=== PATIENT | female | born 1930 | race Caucasian/White ===

== ENCOUNTER → 2017-03-07 | Outpatient (CLI) | payer MEDICARE ==
[~2017-03-07] MED LIST: ALL100 PO; ALL300 PO; ASPI-1441 PO; ASPI81TA15 PO; CEP500 PO; GABA-549 PO; HYDR-2966 PO; IBU600 PO; LEVO100T95 PO; LEVO150T72 PO; LEVO50TA80 PO; LISI-355 PO; LISI-374 PO; LOR5 PO; LOR5/325 PO; LOVA10TA63 PO; MET500 PO; MOM PO; OXYB5TAB86 PO; POTA99TA6 PO; SOLI10TA8 PO; TRA50 PO; TRAM-420 PO; TRIA1CAP86 PO; VALS320T12 PO; WAR25 PO; ZOL5 PO; ZOLP-350 PO
[2017-03-07 10:40] LABS: INR 1.29
== END ==
LOC: LAB 10:17
DX: I35.1 Nonrheumatic aortic (valve) insufficiency (principal)
CPT/HCPCS: 36415; 82310; 82374; 82435; 82565; 82947; 84132; 84295; 84520; 85027; 85610

== ENCOUNTER → 2017-03-17 | Outpatient (CLI) | payer MEDICARE | LOC: LAB 10:25 | PROVIDERS: ATTEND Physician Assistant | DX: I35.1 Nonrheumatic aortic (valve) insufficiency (principal); E11.69 Type 2 diabetes mellitus with other specified complication; E66.9 Obesity, unspecified | CPT/HCPCS: 36415; 82310; 82374; 82435; 82565; 82947; 84132; 84295; 84520 ==

== ENCOUNTER → 2017-03-31 | Outpatient (CLI) | payer MEDICARE | LOC: LAB 09:38 | PROVIDERS: ATTEND Internal Medicine Cardiovascular Disease | DX: I50.32 Chronic diastolic (congestive) heart failure (principal) | CPT/HCPCS: 36415; 82310; 82374; 82435; 82565; 82947; 83735; 84132; 84295; 84520 ==

== ENCOUNTER → 2017-05-06 | Outpatient (CLI) | payer MEDICARE ==
[2017-05-06 09:55] LABS: INR 1.42
== END ==
LOC: LAB 09:23
PROVIDERS: ATTEND Physician Assistant
DX: I35.1 Nonrheumatic aortic (valve) insufficiency (principal)
CPT/HCPCS: 36415; 82310; 82374; 82435; 82565; 82947; 84132; 84295; 84520; 85027; 85610

== ENCOUNTER → 2017-06-06 | Outpatient (CLI) | payer MEDICARE | LOC: LAB 10:03 | PROVIDERS: ATTEND Internal Medicine Cardiovascular Disease | DX: I50.20 Unspecified systolic (congestive) heart failure (principal) | CPT/HCPCS: 36415; 82310; 82374; 82435; 82565; 82947; 83880; 84132; 84295; 84520 ==

== ENCOUNTER → 2017-06-10 | Outpatient (CLI) | payer MEDICARE | LOC: LAB 11:04 | PROVIDERS: ATTEND Internal Medicine Cardiovascular Disease | DX: I50.23 Acute on chronic systolic (congestive) heart failure (principal) | CPT/HCPCS: 36415; 82310; 82374; 82435; 82565; 82947; 83880; 84132; 84295; 84520 ==

== ENCOUNTER → 2017-06-13 | Outpatient (CLI) | payer MEDICARE | LOC: LAB 12:51 | PROVIDERS: ATTEND Internal Medicine Cardiovascular Disease | DX: I50.23 Acute on chronic systolic (congestive) heart failure (principal) | CPT/HCPCS: 36415; 82310; 82374; 82435; 82565; 82947; 83880; 84132; 84295; 84520 ==

== ENCOUNTER → 2017-06-18 | Outpatient (CLI) | payer MEDICARE | LOC: LAB 12:12 | PROVIDERS: ATTEND Internal Medicine Cardiovascular Disease | DX: I50.32 Chronic diastolic (congestive) heart failure (principal); E03.9 Hypothyroidism, unspecified | CPT/HCPCS: 36415; 84443 ==

== ENCOUNTER 2017-08-19 14:53 | Emergency (ER) | payer MEDICARE ==
[~2017-08-19 14:53] MED LIST changes: -BUME1TAB19 PO; -CAR3.125 PO
--- NOTE | 2017-08-19 15:03 | ER Report ---
History and Physical Time Seen By MD: 15:03 Hx. of Stated Complaint: PT REPORTS NAUSEA AND VOMITING SINCE THIS MORNING HPI/ROS CHIEF COMPLAINT: Not feeling well, back pain HISTORY OF PRESENT ILLNESS: 86-year-old female patient presents to emergency room with complaint of not feeling well and back pain. Patient states that she had a fall 2 days ago. Patient states she's been having back pain since then. She has been able to ambulate since then. She states that she's not had any loss of bowel or bladder control. She also states that she's been feeling herself. States she is felt chilled but denies feeling feverish. She has been taking her medication, however states she is not feeling any better. She states that today she started having nausea, vomiting and diarrhea. She states that was abnormal for her. REVIEW OF SYSTEMS: Respiratory: No cough, no dyspnea. Cardiovascular: No chest pain, no palpitations. Gastrointestinal: As noted above Musculoskeletal: As noted above Allergies: Coded Allergies: No Known Drug Allergies (Verified , 08/19/17) Home Meds Reported Medications Potassium Gluconate (POTASSIUM) 99 Mg Tablet, 99 MG PO 02/12/17 Hydrochlorothiazide (HYDROCHLOROTHIAZIDE) 25 Mg Tablet, 1 TAB PO QDAY, TAB 02/12/17 Lisinopril (LISINOPRIL) 40 Mg Tablet, 20 MG PO QDAY, TAB 10/12/16 Gabapentin (GABAPENTIN) 300 Mg Capsule, 300 MG PO TID, CAPSULE 02/18/16 Tramadol Hcl (TRAMADOL HCL) 50 Mg Tablet, 50-100 MG PO Q4-6H Y for PAIN, TAB 02/18/16 Oxybutynin Chloride (OXYBUTYNIN CHLORIDE) 5 Mg Tablet, 15 MG PO QDAY, TAB 02/18/16 Aspirin (ASPIRIN) 81 Mg Tablet.dr, 81 MG PO 11/28/11 Levothyroxine Sodium (Levothyroxine Sodium) 50 Mcg Tablet, 75 MCG PO QAM, 0 Refills 04/14/09 Allopurinol (Zyloprim) 300 Mg Tab, 300 MG PO QDAY, 0 Refills 04/14/09 Lovastatin (Lovastatin) 10 Mg Tablet, 10 MG PO QHS 04/14/09 Past Medical/Surgical History Patient has a past medical history of hypertension, hyperlipidemia, cholecystitis, arthritis, back pain, diabetes, hypothyroidism. Patient has a surgical history of left total knee replacement, hysterectomy, cystectomy. Patient has a family medical history of diabetes. Reviewed Nurses Notes: Yes Hx Smoking: No Smoking Status: Never Smoker Hx Substance Use Disorder: No Hx Alcohol Use: No Constitutional Vital Sign - Last 24 Hours 08/19/17 08/19/17 08/19/17 08/19/17 14:55 14:58 14:58 15:00 Temp 98.5 Pulse 99 Resp 16 B/P (MAP) 143/61 143/61 (88) 135/60 (85) Pulse Ox 94 O2 Delivery Nasal Cannula O2 Flow Rate 2.0 08/19/17 08/19/17 08/19/17 08/19/17 15:08 15:23 15:38 15:53 Pulse 78 82 78 77 Pulse Ox 91 92 93 91 08/19/17 08/19/17 08/19/17 08/19/17 16:00 16:08 16:13 16:50 Pulse 77 77 B/P (MAP) 139/55 (83) 132/63 (86) Pulse Ox 93 95 08/19/17 08/19/17 08/19/17 08/19/17 16:58 17:00 17:13 17:18 Pulse 81 80 81 B/P (MAP) 146/69 (94) Pulse Ox 91 93 90 08/19/17 08/19/17 08/19/17 08/19/17 17:30 17:33 17:48 18:00 Pulse 80 80 B/P (MAP) 138/66 (90) 143/55 (84) Pulse Ox 93 92 08/19/17 08/19/17 08/19/17 08/19/17 18:03 18:18 18:23 18:30 Pulse 80 81 80 B/P (MAP) 130/65 (86) Pulse Ox 89 08/19/1718 08/19/17 08/19/17 18:38 18:53 19:00 19:05 Pulse 81 85 85 B/P (MAP) 147/68 (94) Pulse Ox 97 95 95 08/19/17 08/19/17 08/19/17 08/19/17 19:10 19:25 19:30 19:40 Pulse ??? 71 63 Resp 14 20 B/P (MAP) 122/65 (84) Pulse Ox 81 94 92 08/19/17 08/19/17 08/19/17 08/19/17 19:55 20:00 20:10 20:25 Pulse 71 71 64 Resp 14 31 21 B/P (MAP) 124/100 (108) Pulse Ox 92 94 95 08/19/17 08/19/17 20:30 20:40 Pulse 65 Resp 37 B/P (MAP) 123/64 (83) Pulse Ox 95 Intake and Output 08/19/17 08/19/17 08/20/17 14:59 22:59 06:59 Intake Total 1000 ml Output Total 70 ml Balance 930 ml Physical Exam General Appearance: The patient is alert, has no immediate need for airway protection and no current signs of toxicity Respiratory: Chest is non tender, lungs are clear to auscultation. Cardiac: regular rate and rhythm, 1+ edema to bilateral lower extremities. Gastrointestinal: Abdomen is soft and non tender, no masses, bowel sounds normal. Musculoskeletal: Neck: Neck is supple and non tender. Extremities have full range of motion and are non tender. Skin: No rashes or lesions. DIFFERENTIAL DIAGNOSIS: After history and physical exam differential diagnosis was considered for nausea and vomiting including but not limited to gastroenteritis, gastritis, appendicitis, and medication side effect. Included in the differential is urinary tract infection, [place]. Medical Decision Making Data Points Result Diagram: 08/19/17 1533 08/19/17 1755 Laboratory Hematology Test 08/19/17 15:20 08/19/17 15:33 08/19/17 17:55 08/19/17 19:23 Urine Color Betty Urine Clarity Slightly-cloudy Urine pH 5.0 pH (4.8-9.5) Urine Specific [place] 1.011 Urine Protein 30 mg/dL (NEGATIVE) Urine Glucose (UA) Negative mg/dL (NEGATIVE) Urine Ketones Negative mg/dL (NEGATIVE) Urine Blood Negative (NEGATIVE) Urine Nitrite Negative (NEGATIVE) Urine Bilirubin Negative (NEGATIVE) Urine Urobilinogen 4.0 mg/dL (0.2-1.9) Urine Leukocyte Esterase Negative (NEGATIVE) Urine RBC 1 /HPF (0-2/HPF) Urine WBC 2 /HPF (0-5/HPF) Urine Squamous Epithelial Cells None /LPF (NONE-FEW) Urine Transitional Epithelial Cells Many /LPF (NONE-FEW) Urine Amorphous Crystals Few /HPF Urine Bacteria Few /HPF (NONE-FEW) Urine Hyaline Casts Many /LPF (NONE-FEW) Urine Mucus Few /HPF (NONE-FEW) Red Blood Count 4.80 M/uL (4.17-5.56) Mean Corpuscular Volume 70.6 fL (80.0-96.0) Mean Corpuscular Hemoglobin 21.2 pg (26.0-33.0) Mean Corpuscular Hemoglobin Concent 30.0 g/dL (32.0-36.0) Red Cell Distribution Width 20.4 % (11.5-14.5) Mean Platelet Volume 9.8 fL (7.2-11.1) Neutrophils (%) (Auto) 80.7 % (39.4-72.5) Lymphocytes (%) (Auto) 9.4 % (17.6-49.6) Monocytes (%) (Auto) 9.8 % (4.1-12.4) Eosinophils (%) (Auto) 0.0 % (0.4-6.7) Basophils (%) (Auto) 0.1 % (0.3-1.4) Nucleated RBC Relative Count (auto) 0.2 /100WBC Neutrophils # (Auto) 5.1 K/uL (2.0-7.4) Lymphocytes # (Auto) 0.6 K/uL (1.3-3.6) Monocytes # (Auto) 0.6 K/uL (0.3-1.0) Eosinophils # (Auto) 0.0 K/uL (0.0-0.5) Basophils # (Auto) 0.0 K/uL (0.0-0.1) Nucleated RBC Absolute Count (auto) 0.01 K/uL Peripheral Blood Smear Yes Y/N Sodium Level 134 mmol/L (137-145) Chloride Level 100 mmol/L (98-107) Carbon Dioxide Level 19 mmol/L (22-31) Blood Urea Nitrogen 51 mg/dl (7-18) Creatinine 3.00 mg/dl (0.52-1.04) Glomerular Filtration Rate Calc 14.8 Random Glucose 97 mg/dl (75-110) Calcium Level 8.3 mg/dl (8.4-10.2) Total Bilirubin 3.4 mg/dl (0.2-1.3) Aspartate Amino Transf (AST/SGOT) 206 U/L (0-35) Alanine Aminotransferase (ALT/SGPT) 97 U/L (0-56) Alkaline Phosphatase 91 U/L (0-126) Total Protein 6.9 g/dl (6.3-8.2) Albumin 3.7 g/dl (3.5-5.0) Amylase Level 61 U/L (0-110) Lipase 23 U/L (23-300) Potassium Level 7.2 mmol/L (3.5-5.0) Magnesium Level 2.3 mg/dl (1.7-2.2) Total Creatine Kinase 614 U/L (30-135) Troponin I 0.135 ng/ml Lactate 3.0 mmol/L (0.7-2.1) Test 08/19/17 19:58 Prothrombin Time 30.1 seconds (12.0-14.4) Prothromb Time International Ratio 2.76 Activated Partial Thromboplast Time 43 seconds (23-35) Chemistry Test 08/19/17 15:20 08/19/17 15:33 08/19/17 17:55 08/19/17 19:23 Urine Color Betty Urine Clarity Slightly-cloudy Urine pH 5.0 pH (4.8-9.5) Urine Specific [place] 1.011 Urine Protein 30 mg/dL (NEGATIVE) Urine Glucose (UA) Negative mg/dL (NEGATIVE) Urine Ketones Negative mg/dL (NEGATIVE) Urine Blood Negative (NEGATIVE) Urine Nitrite Negative (NEGATIVE) Urine Bilirubin Negative (NEGATIVE) Urine Urobilinogen 4.0 mg/dL (0.2-1.9) Urine Leukocyte Esterase Negative (NEGATIVE) Urine RBC 1 /HPF (0-2/HPF) Urine WBC 2 /HPF (0-5/HPF) Urine Squamous Epithelial Cells None /LPF (NONE-FEW) Urine Transitional Epithelial Cells Many /LPF (NONE-FEW) Urine Amorphous Crystals Few /HPF Urine Bacteria Few /HPF (NONE-FEW) Urine Hyaline Casts Many /LPF (NONE-FEW) Urine Mucus Few /HPF (NONE-FEW) White Blood Count 6.3 k/uL (4.5-11.0) Red Blood Count 4.80 M/uL (4.17-5.56) Hemoglobin 10.2 g/dL (12.0-16.0) Hematocrit 33.9 % (34.0-47.0) Mean Corpuscular Volume 70.6 fL (80.0-96.0) Mean Corpuscular Hemoglobin 21.2 pg (26.0-33.0) Mean Corpuscular Hemoglobin Concent 30.0 g/dL (32.0-36.0) Red Cell Distribution Width 20.4 % (11.5-14.5) Platelet Count 159 K/uL (150-450) Mean Platelet Volume 9.8 fL (7.2-11.1) Neutrophils (%) (Auto) 80.7 % (39.4-72.5) Lymphocytes (%) (Auto) 9.4 % (17.6-49.6) Monocytes (%) (Auto) 9.8 % (4.1-12.4) Eosinophils (%) (Auto) 0.0 % (0.4-6.7) Basophils (%) (Auto) 0.1 % (0.3-1.4) Nucleated RBC Relative Count (auto) 0.2 /100WBC Neutrophils # (Auto) 5.1 K/uL (2.0-7.4) Lymphocytes # (Auto) 0.6 K/uL (1.3-3.6) Monocytes # (Auto) 0.6 K/uL (0.3-1.0) Eosinophils # (Auto) 0.0 K/uL (0.0-0.5) Basophils # (Auto) 0.0 K/uL (0.0-0.1) Nucleated RBC Absolute Count (auto) 0.01 K/uL Peripheral Blood Smear Yes Y/N Glomerular Filtration Rate Calc 14.8 Calcium Level 8.3 mg/dl (8.4-10.2) Total Bilirubin 3.4 mg/dl (0.2-1.3) Aspartate Amino Transf (AST/SGOT) 206 U/L (0-35) Alanine Aminotransferase (ALT/SGPT) 97 U/L (0-56) Alkaline Phosphatase 91 U/L (0-126) Total Protein 6.9 g/dl (6.3-8.2) Albumin 3.7 g/dl (3.5-5.0) Amylase Level 61 U/L (0-110) Lipase 23 U/L (23-300) Magnesium Level 2.3 mg/dl (1.7-2.2) Total Creatine Kinase 614 U/L (30-135) Troponin I 0.135 ng/ml Lactate 3.0 mmol/L (0.7-2.1) Test 08/19/17 19:58 Prothrombin Time 30.1 seconds (12.0-14.4) Prothromb Time International Ratio 2.76 Activated Partial Thromboplast Time 43 seconds (23-35) Coagulation Test 08/19/17 19:58 Prothrombin Time 30.1 seconds Prothromb Time International Ratio 2.76 Activated Partial Thromboplast Time 43 seconds Urinalysis Test 08/19/17 15:20 Urine Color Betty Urine Clarity Slightly-cloudy Urine pH 5.0 pH (4.8-9.5) Urine Specific [place] 1.011 Urine Protein 30 mg/dL (NEGATIVE) Urine Glucose (UA) Negative mg/dL (NEGATIVE) Urine Ketones Negative mg/dL (NEGATIVE) Urine Blood Negative (NEGATIVE) Urine Nitrite Negative (NEGATIVE) Urine Bilirubin Negative (NEGATIVE) Urine Urobilinogen 4.0 mg/dL (0.2-1.9) Urine Leukocyte Esterase Negative (NEGATIVE) Urine RBC 1 /HPF (0-2/HPF) Urine WBC 2 /HPF (0-5/HPF) Urine Squamous Epithelial Cells None /LPF (NONE-FEW) Urine Transitional Epithelial Cells Many /LPF (NONE-FEW) Urine Amorphous Crystals Few /HPF Urine Bacteria Few /HPF (NONE-FEW) Urine Hyaline Casts Many /LPF (NONE-FEW) Urine Mucus Few /HPF (NONE-FEW) EKG/Imaging EKG Interpretation 12 lead EKG at 1527: Rhythm: Idioventricular rhythm with a rate of 98 bpm [place]: Right axis deviation QRS: Right bundle branch block ST segments: Diffuse ST abnormality 12 lead EKG at 1755: Rhythm: Idioventricular rhythm at a ventricular rate of 80 bpm [place]: Right axis deviation QRS: Right bundle branch block ST segments: Diffuse ST abnormality 12 lead EKG: Rhythm: Atrial fibrillation with ventricular rate of 65 bpm [place]: normal QRS: Right bundle branch block ST segments: normal Imaging L-SPINE W/O CONTRAST HISTORY: fall with pain One of the following dose optimization techniques was utilized in the performance of this exam: Automated exposure control; adjustment of the mA and/ or kV according to the patient's size; or use of an iterative reconstruction technique. Specific details can be referenced in the facility's radiology CT exam operational policy. TECHNIQUE: CT scan of the lumbar spine from the lower thoracic through the sacral spine. Reconstructed sagittal and coronal scans were obtained as well. Reconstructed sagittal and coronal scans were obtained. Comparison made to lumbar spine film series from 11/21/2016. FINDINGS: The lumbar vertebral bodies are well maintained with respect to height and alignment. No acute fractures noted within the lumbar spine. The patient is status post pedicle fusion with no fracture or loosening of the orthopedic hardware at the L3-4 disc space. There is disc space narrowing and vacuum phenomenon noted at the L2-3 and the L5-S1 levels. Vacuum phenomenon without disc space narrowing noted at the L4-5 level. The facet joints are well- maintained with no facet fracture or disruption. Laminectomy changes noted in the L2 through the L4-5 level. There is a stable sclerotic lesion involving the involving the posterior inferior aspect of the L1 vertebral body unchanged when compared to a CT scan of the thoracic spine from 2011. There is a 75% anterior compression change of the T12 vertebral body and approximately 20% compression change of the T11 vertebral body which appear to be fairly comparable to a plain film from 11/21/2016. Relatively advanced facet arthropathy changes are noted in the lower thoracic spine at those levels. Sacrum is unremarkable. Bone harvesting changes from the right iliac bone. Atherosclerotic disease seen within the nonaneurysmal aorta. No pathologic lymphadenopathy. Large left renal cyst measuring over 6 cm. IMPRESSION: FINDINGS: 1. No acute bony pathology. Postoperative changes in the lumbar spine as described. Apparent stable appearing compression changes involving the lower thoracic spine when compared to plain film from 11/21/2016 Report Dictated By: Stefano Schultz MD at 08/19/2017 5:49 PM Report E-Signed By: Stefano Schultz MD at 08/19/2017 6:41 PM ABDOMEN/PELVIS W/O CONTRAST HISTORY: n/v suprapubic abdominal pain TECHNIQUE: Axial images acquired through the abdomen/pelvis. Coronal and sagittal reformatting also performed. No IV contrast administered. Dose Lowering Technique One of the following dose optimization techniques was utilized in the performance of this exam: Automated exposure control; adjustment of the mA and/ or kV according to the patient's size; or use of an iterative reconstruction technique. Specific details can be referenced in the facility's radiology CT exam operational policy. COMPARISON: None. FINDINGS: Visualized lung bases: There Is a moderate posterior layering right pleural effusion and a small posterior layering left pleural effusion. There is focal airspace consolidation in the inferior right middle lobe and dense airspace consolidation in the dependent portion of the right lower lobe consistent with infiltrate and/or atelectasis. Very small amount of airspace consolidation seen in the dependent left lower lobe There are extensive coronary artery calcifications. Hepatobiliary: Postsurgical changes from a cholecystectomy. There is a lobular contour to the liver Spleen: Negative. Adrenals: Negative. Pancreas: Severely atrophic Kidneys ureters and bladder: 7.2 cm left renal cyst no demonstration of urolithiasis hydronephrosis or hydroureter. Bladder is mostly decompressed therefore not ideally evaluated Genitalia: Hysterectomy GI: Small hiatal hernia. Scattered diverticula throughout the colon most prominent in the left side of the colon although no CT evidence of acute diverticulitis Vessels/spaces/nodes: Moderate vascular calcifications seen throughout the abdomen and pelvis. There is a small amount of abdominal and moderate amount of pelvic ascites Bones/soft tissues: There is diffuse anasarca. There are postoperative changes from posterior lumbar interbody fusion at L3 and L4. There are moderate spondylotic changes the visualized thoracolumbar spine. There is a moderate compression fracture of T12 several mild thoracic compression fractures. There is dense sclerosis seen along the posterior inferior aspect of the L1 vertebral body as described changes are also seen along the posterior medial right iliac bone Additional findings: None pertinent. IMPRESSION: There is a moderate posterior layering right pleural effusion with adjacent airspace consolidation the right middle lobe and right lower lobe consistent with infiltrate and/or atelectasis Small left pleural effusion with a very small amount of adjacent airspace consolidation Postsurgical changes from a cholecystectomy and hysterectomy Lobular contour to the liver suggesting possibility of cirrhosis although clinical correlation needed Diffuse anasarca and mild amount of abdominal and moderate amount of pelvic ascites Severely atrophic pancreas Diverticulosis throughout the colon most prominent on the left although no CT evidence of acute diverticulitis Postoperative changes lumbar spine with spondylotic changes and multiple compression fractures as described Dense sclerosis along posterior inferior L1 vertebral body of uncertain etiology. Is also sclerosis along the posterior inferior right iliac bone. If aggressive bone pathology is of clinical concern bone scan may be helpful Report Dictated By: Johanne Minor MD at 08/19/2017 5:16 PM Report E-Signed By: Johanne Minor MD at 08/19/2017 5:27 PM Exam type: CHEST PA AND LAT History: N/V Comparison: February 12, 2017. Findings: Cardiac silhouette is enlarged slightly increased when compared the prior study. There has been development of a moderate right pleural effusion and airspace consolidation in the right lung base consistent with infiltrate and/or atelectasis. There is no evidence of overt pulmonary edema. IMPRESSION: 1. Moderate right pleural effusion and airspace consolidation in the right lung base consistent with infiltrate and/or atelectasis Cardiomegaly slightly enlarged when compared to the prior study Report Dictated By: Johanne Minor MD at 08/19/2017 5:15 PM Report E-Signed By: Johanne Minor MD at 08/19/2017 5:16 PM ED Course/Re-evaluation ED Course Patient was admitted to an exam room, history of physical were obtained. Differential diagnoses were considered. On examination lungs are clear, heart is regular, patient does have some bruising that is noted diffusely patient did have some tenderness in the suprapubic region. Patient had no bruising to the lumbar spine, no tenderness to palpation. A CBC, CMP, urinalysis, EKG, troponin , chest x-ray, CT scan of abdomen and pelvis as well as CT scan of the lumbar spine. Urinalysis was unremarkable, CBC showed no elevated white count, CMP did show a high potassium of 7.4. At that time patient did receive a gram of calcium gluconate. EKG showed a wide complex, possibly idoventricular rate with right axis deviation and right bundle branch block. Troponin came back indeterminate at 0.1. Chest x-ray showed right lower lobe pleural effusion with likely consolidation and/or atelectasis. CT scan of abdomen and pelvis showed no acute findings, she did have ascites of the abdomen as well as in the pelvis. Lumbar spine showed no acute fractures. A repeat EKG and potassium and troponin were done. Potassium did come down from 7.4 to 7.2. The troponin however did increase to a critical level. At that time I discussed the findings with the patient and her family. I did discuss the case with Dr. Cheung, hospitalist at [facility], who after reviewing the case with him felt the patient likely need to be admitted to ICU and wanted the patient to go through the ER there at [facility]. Still that additional testing be done, including a PT PTT, magnesium and a lactate. The lactate was 3. I then discussed the case with Dr. Mijares, ER physician, who did agree to accept the patient for transfer. He did request that a CPK be added. CPK was 649. I discussed this with the patient and her family and they verbalized understanding and agreement with plan. Patient did receive a dose of 324 mg of aspirin. Patient also received an amp of dextrose, amp of bicarbonate and 10 units of insulin. A repeat x-ray was done which did show improvement in her EKG. At that time she did have a atrial fibrillation with a right bundle branch block. Decision to Disposition Date: Aug 19, 2017 Decision to Disposition Time: 20:27 Depart Departure Latest Vital Signs Vital Signs Date Time Temp Pulse Resp B/P (MAP) Pulse Ox O2 Delivery O2 Flow Rate FiO2 08/19/17 20:40 65 37 95 08/19/17 20:30 123/64 (83) 08/19/17 14:58 98.5 Nasal Cannula 08/19/17 14:55 2.0 Impression: Primary Impression: Hyperkalemia Additional Impressions: Elevated troponin Kidney failure Condition: Condition Unchanged Disposition: XFER TO [facility] Referrals: FRANCI PORTER MD (PCP) Problem Qualifiers Additional Impressions: Kidney failure Renal failure chronicity: acute Acute renal failure type: unspecified Qualified Codes: N17.9 - Acute kidney failure, unspecified ELLIOTT MEZA TURN SEWER Aug 19, 2017 15:03
[2017-08-19] MEDS ORDERED: EMS NS 0.9%(*) 1000 ML BAG 1,000 ML IV ONE (15:05)
[2017-08-19] MEDS ORDERED: NS(*) 0.9% 1000 ML BAG 1,000 ML IV ONE (15:18)
[2017-08-19] MEDS ORDERED: IOPAMIDOL 76% 75 ML INFUS BTL 0 ML ONE (15:49)
--- NOTE | 2017-08-19 15:54 | EKG ---
FACILITY: [facility] PATIENT NAME: BARBER IBRAHIM : [id number] MR: [id number] V: [id number] EXAM DATE: ORDERING PHYSICIAN: ELLIOTT MEZA TECHNOLOGIST: TONIE Test Reason : Blood Pressure : / mmHG Vent. Rate : 098 BPM Atrial Rate : 098 BPM P-R Int : 000 ms QRS Dur : 050 ms QT Int : 248 ms P-R-T Axes : 000 120 222 degrees QTc Int : 316 ms Very wide complex "near-tachycardic" rhythm Suspect accelerated idioventricular Diffuse ST-T findings concerning for ischemia Abnormal ECG Confirmed by MARLEE JOHNSON ([id number]) on 08/19/2017 4:09:12 PM Referred By: DERRICK Confirmed By:MARLEE JOHNSON
[2017-08-19 15:55] LABS: PLATELET COUNT, AUTOMATED 159 K/uL (150-450)
[2017-08-19] MEDS ORDERED: CALCIUM GLUC 10% 100 MG/ML VL IVP ONE (16:15)
--- NOTE | 2017-08-19 17:20 | RADIOLOGY IMAGING REPORT ---
FACILITY: [facility] [place] PATIENT NAME: Brielle Campbell : 1930 MR: [id number] V: [id number] EXAM DATE: ORDERING PHYSICIAN: ELLIOTT MEZA TECHNOLOGIST: Location: [facility] [place] Patient: Brielle Campbell : 1930 Visit/Account:[id number] Date of Sevice: 08/19/2017 Exam type: CHEST PA AND LAT History: N/V Comparison: February 12, 2017. Findings: Cardiac silhouette is enlarged slightly increased when compared the prior study. There has been deve lopment of a moderate right pleural effusion and airspace consolidation in the right lung base consis tent with infiltrate and/or atelectasis. There is no evidence of overt pulmonary edema. IMPRESSION: 1. Moderate right pleural effusion and airspace consolidation in the right lung base consistent with infiltrate and/or atelectasis Cardiomegaly slightly enlarged when compared to the prior study Report Dictated By: Johanne Minor MD at 08/19/2017 5:15 PM Report E-Signed By: Johanne Minor MD at 08/19/2017 5:16 PM WSN:[email or web address]
--- NOTE | 2017-08-19 17:32 | RADIOLOGY IMAGING REPORT ---
FACILITY: [facility] PATIENT NAME: Brielle Campbell : 1930 MR: [id number] V: [id number] EXAM DATE: ORDERING PHYSICIAN: ELLIOTT MEZA TECHNOLOGIST: Location: [facility] Patient: Brielle Campbell : 1930 Visit/Account:[id number] Date of Sevice: 08/19/2017 ABDOMEN/PELVIS W/O CONTRAST HISTORY: n/v suprapubic abdominal pain TECHNIQUE: Axial images acquired through the abdomen/pelvis. Coronal and sagittal reformatting also performed. No IV contrast administered. Dose Lowering Technique One of the following dose optimization techniques was utilized in the performance of this exam: Autom ated exposure control; adjustment of the mA and/or kV according to the patient's size; or use of an i terative reconstruction technique. Specific details can be referenced in the facility's radiology C T exam operational policy. COMPARISON: None. FINDINGS: Visualized lung bases: There Is a moderate posterior layering right pleural effusion and a small post erior layering left pleural effusion. There is focal airspace consolidation in the inferior right mi ddle lobe and dense airspace consolidation in the dependent portion of the right lower lobe consisten t with infiltrate and/or atelectasis. Very small amount of airspace consolidation seen in the depend ent left lower lobe There are extensive coronary artery calcifications. Hepatobiliary: Postsurgical changes from a cholecystectomy. There is a lobular contour to the liver Spleen: Negative. Adrenals: Negative. Pancreas: Severely atrophic Kidneys ureters and bladder: 7.2 cm left renal cyst no demonstration of urolithiasis hydronephrosis o r hydroureter. Bladder is mostly decompressed therefore not ideally evaluated Genitalia: Hysterectomy GI: Small hiatal hernia. Scattered diverticula throughout the colon most prominent in the left side of the colon although no CT evidence of acute diverticulitis Vessels/spaces/nodes: Moderate vascular calcifications seen throughout the abdomen and pelvis. Ther e is a small amount of abdominal and moderate amount of pelvic ascites Bones/soft tissues: There is diffuse anasarca. There are postoperative changes from posterior lumbar interbody fusion at L3 and L4. There are moder ate spondylotic changes the visualized thoracolumbar spine. There is a moderate compression fracture of T12 several mild thoracic compression fractures. There is dense sclerosis seen along the posteri or inferior aspect of the L1 vertebral body as described changes are also seen along the posterior me dial right iliac bone Additional findings: None pertinent. IMPRESSION: There is a moderate posterior layering right pleural effusion with adjacent airspace consolidation th e right middle lobe and right lower lobe consistent with infiltrate and/or atelectasis Small left pleural effusion with a very small amount of adjacent airspace consolidation Postsurgical changes from a cholecystectomy and hysterectomy Lobular contour to the liver suggesting possibility of cirrhosis although clinical correlation needed Diffuse anasarca and mild amount of abdominal and moderate amount of pelvic ascites Severely atrophic pancreas Diverticulosis throughout the colon most prominent on the left although no CT evidence of acute diver ticulitis Postoperative changes lumbar spine with spondylotic changes and multiple compression fractures as johny cribed Dense sclerosis along posterior inferior L1 vertebral body of uncertain etiology. Is also sclerosis along the posterior inferior right iliac bone. If aggressive bone pathology is of clinical concern b one scan may be helpful Report Dictated By: Johanne Minor MD at 08/19/2017 5:16 PM Report E-Signed By: Johanne Minor MD at 08/19/2017 5:27 PM WSN:[email or web address]
--- NOTE | 2017-08-19 18:07 | EKG ---
FACILITY: [facility] [place] PATIENT NAME: BARBER IBRAHIM : [id number] MR: [id number] V: [id number] EXAM DATE: ORDERING PHYSICIAN: ELLIOTT MEZA TECHNOLOGIST: TONIE Test Reason : HIGH POTASSIUM Blood Pressure : / mmHG Vent. Rate : 080 BPM Atrial Rate : 080 BPM P-R Int : 418 ms QRS Dur : 104 ms QT Int : 512 ms P-R-T Axes : 019 187 -30 degrees QTc Int : 590 ms Ventricular paced rhythm vs Junctional rhythm with RBBB vs hyperkalemia When compared with ECG of 19-AUG-2017 15:27, QRS has shortened, but still very wide Confirmed by DAVID LIU ([id number]) on 08/20/2017 1:04:52 PM Referred By: DERRICK Confirmed By:DAVID LIU
[2017-08-19] MEDS ORDERED: INSU HUM REG 100 U/ML(ER ONLY) 10 ML VIAL IVP ONE (18:30)
[2017-08-19] MEDS ORDERED: SODIUM BICAR IV ONE (18:30)
[2017-08-19] MEDS ORDERED: DEXTROSE 50% 50 ML SYR IVP ONE (18:30)
[2017-08-19] MEDS ORDERED: D5W IV ONE (18:30)
--- NOTE | 2017-08-19 18:45 | RADIOLOGY IMAGING REPORT ---
FACILITY: [facility] PATIENT NAME: Brielle Campbell : 1930 MR: [id number] V: [id number] EXAM DATE: ORDERING PHYSICIAN: ELLIOTT MEZA TECHNOLOGIST: Location: [facility] [place] Patient: Brielle Campbell : 1930 Visit/Account:[id number] Date of Sevice: 08/19/2017 L-SPINE W/O CONTRAST HISTORY: fall with pain One of the following dose optimization techniques was utilized in the performance of this exam: Autom ated exposure control; adjustment of the mA and/or kV according to the patient's size; or use of an i terative reconstruction technique. Specific details can be referenced in the facility's radiology C T exam operational policy. TECHNIQUE: CT scan of the lumbar spine from the lower thoracic through the sacral spine. Reconstructe d sagittal and coronal scans were obtained as well. Reconstructed sagittal and coronal scans were obt ained. Comparison made to lumbar spine film series from 11/21/2016. FINDINGS: The lumbar vertebral bodies are well maintained with respect to height and alignment. No acute fractu res noted within the lumbar spine. The patient is status post pedicle fusion with no fracture or loos ening of the orthopedic hardware at the L3-4 disc space. There is disc space narrowing and vacuum phe nomenon noted at the L2-3 and the L5-S1 levels. Vacuum phenomenon without disc space narrowing noted at the L4-5 level. The facet joints are well-maintained with no facet fracture or disruption. Laminec teresa changes noted in the L2 through the L4-5 level. There is a stable sclerotic lesion involving the involving the posterior inferior aspect of the L1 vertebral body unchanged when compared to a CT sca n of the thoracic spine from 2012. There is a 75% anterior compression change of the T12 vertebral body and approximately 20% compressio n change of the T11 vertebral body which appear to be fairly comparable to a plain film from 7. Relatively advanced facet arthropathy changes are noted in the lower thoracic spine at those levels. Sacrum is unremarkable. Bone harvesting changes from the right iliac bone. Atherosclerotic disease seen within the nonaneurysmal aorta. No pathologic lymphadenopathy. Large lef t renal cyst measuring over 6 cm. IMPRESSION: FINDINGS: 1. No acute bony pathology. Postoperative changes in the lumbar spine as described. Apparent stable a ppearing compression changes involving the lower thoracic spine when compared to plain film from 11/21 Report Dictated By: Stefano Schultz MD at 08/19/2017 5:49 PM Report E-Signed By: Stefano Schultz MD at 08/19/2017 6:41 PM WSN:[id number]
[2017-08-19] MEDS ORDERED: ASPIRIN 81 MG CHEW PO ONE (18:55)
[2017-08-19] MEDS ORDERED: SODIUM BICARB 8.4% 50 MEQ/50ML IV ONE (18:55)
[2017-08-19 20:12] LABS: INR 2.76
[2017-08-19 20:30] VITALS: BP 123/64
--- NOTE | 2017-08-19 21:54 | EKG ---
FACILITY: [facility] [place] PATIENT NAME: BARBER IBRAHIM : [id number] MR: [id number] V: [id number] EXAM DATE: ORDERING PHYSICIAN: ELLIOTT MEZA TECHNOLOGIST: LINDA Test Reason : HIGH POTASSIUM Blood Pressure : / mmHG Vent. Rate : 065 BPM Atrial Rate : 037 BPM P-R Int : 000 ms QRS Dur : 162 ms QT Int : 538 ms P-R-T Axes : 000 122 -03 degrees QTc Int : 559 ms Atrial fibrillation Right bundle branch block Abnormal ECG Now in atrial fibrilation Confirmed by DAVID LIU ([id number]) on 08/20/2017 1:07:34 PM Referred By: RIDDHI Confirmed By:DAVID LIU
== END 2017-08-19 21:00 | disposition short-term general hospital (02) ==
LOC: ER 15:02
DX: N17.9 Acute kidney failure, unspecified (principal); R79.89 Other specified abnormal findings of blood chemistry; E87.5 Hyperkalemia
CPT/HCPCS: 36415; 36416; 71046; 72131; 74176; 81001; 82150; 82550; 82948; 83605; 83690; 83735; 84484; 85025; 85610; 85730; 93005; 96361; 96374; 96375; 99285; A4353; A9270; J0610; 82040; 82247; 82310; 82374; 82435; 82565; 82947; 84075; 84132; 84155; 84295; 84450; 84460; 84520; J1815; Q9967

== ENCOUNTER → 2017-08-19 | Outpatient (CLI) | payer MEDICARE ==
[~2017-08-19] MED LIST changes: +BUME1TAB19 PO; +CAR3.125 PO
== END ==
LOC: AMB 20:44
PROVIDERS: ATTEND Nurse Practitioner
DX: R79.89 Other specified abnormal findings of blood chemistry (principal)
CPT/HCPCS: A0425; A0426

== ENCOUNTER → 2017-08-19 | Outpatient (CLI) | payer MEDICARE | LOC: AMB 14:28 | PROVIDERS: ATTEND Nurse Practitioner | DX: R11.2 Nausea with vomiting, unspecified (principal); R10.33 Periumbilical pain; I48.91 Unspecified atrial fibrillation; I49.3 Ventricular premature depolarization; R09.02 Hypoxemia | CPT/HCPCS: A0425; A0427 ==

== ENCOUNTER 2017-08-25 11:41 | Inpatient (IN) | payer MEDICARE ==
[~2017-08-25] VITALS: Ht 154.9 cm; Wt 79.8 kg
[2017-08-25 15:20] VITALS: BP 138/55
[2017-08-25] MEDS ORDERED: traMADol 50 MG TAB PO ONE (15:30)
--- NOTE | 2017-08-25 17:34 | History & Physical ---
History of Present Illness Chief Complaint Weakness History of Present Illness This [facility] inpatient treatment in [place]. She was admitted for acute heart failure, renal failure , and an elevated troponin. She apparently was not a candidate for aggressive cardiac interventions, and was managed medically. She did require short term dialysis, but this has now been stopped. History Problems: (1) Essential hypertension (2) History of cholecystectomy (3) History of hysterectomy (4) Gout (5) History of total knee replacement (6) DM2 (diabetes mellitus, type 2) (7) Hypothyroid Home Meds Reported Medications Potassium Gluconate (POTASSIUM) 99 Mg Tablet, 99 MG PO 02/12/17 Hydrochlorothiazide (HYDROCHLOROTHIAZIDE) 25 Mg Tablet, 1 TAB PO QDAY, TAB 02/12/17 Lisinopril (LISINOPRIL) 40 Mg Tablet, 20 MG PO QDAY, TAB 10/12/16 Gabapentin (GABAPENTIN) 300 Mg Capsule, 300 MG PO TID, CAPSULE 02/18/16 Tramadol Hcl (TRAMADOL HCL) 50 Mg Tablet, 50-100 MG PO Q4-6H Y for PAIN, TAB 02/18/16 Oxybutynin Chloride (OXYBUTYNIN CHLORIDE) 5 Mg Tablet, 15 MG PO QDAY, TAB 02/18/16 Aspirin (ASPIRIN) 81 Mg Tablet.dr, 81 MG PO 11/28/11 Levothyroxine Sodium (Levothyroxine Sodium) 50 Mcg Tablet, 75 MCG PO QAM, 0 Refills 04/14/09 Allopurinol (Zyloprim) 300 Mg Tab, 300 MG PO QDAY, 0 Refills 04/14/09 Lovastatin (Lovastatin) 10 Mg Tablet, 10 MG PO QHS 04/14/09 Allergies: Coded Allergies: No Known Drug Allergies (Verified , 08/19/17) Hx Smoking: No Smoking Status: Never Smoker Hx Alcohol Use: No Review of Systems All Systems Reviewed/Normal: Yes Exam Vital Signs Vital Signs Date Time Temp Pulse Resp B/P (MAP) Pulse Ox O2 Delivery O2 Flow Rate FiO2 08/25/17 15:20 97.3 20 138/55 (82) 90 Nasal Cannula 1.5 Neuro: No Gross deficits Eyes: PERRLA Cardiovascular: Regular Rate and Rhythm Respiratory: Clear to Auscultation GI: Abd Soft and Non-Tender Extremities: No Edema Integumentary: No Cyanosis Assessment and Plan Problems: (1) Chronic diastolic (congestive) heart failure Assessment & Plan: She was treated for heart failure during her prior admission. She is on chronic treatment with lisinopril. Daily weights are ordered. (2) Acute renal failure Assessment & Plan: She did require dialysis during her prior admission. This has since been discontinued. A chemistry panel is ordered to be available for rounds later this week. (3) DM2 (diabetes mellitus, type 2) Assessment & Plan: She was on insulin when she was on high dose steroids. We ordered fingersticks for the first several days. (4) Essential hypertension Assessment & Plan: She is on chronic treatment with hydrochlorothiazide. (5) Hypothyroid Assessment & Plan: She is on chronic treatment with Synthroid. (6) Gout Assessment & Plan: She is on chronic treatment with allopurinol. Copies to: FRANCI PORTER MD Venous Thromboembolism Antithrombotics Is Pt On Any Antithrombotics?: No FRANCI PETERS DO Aug 25, 2017 17:34
[2017-08-25 20:55] VITALS: BP 152/79
[2017-08-25] MEDS: GABAPENTIN 100 MG CAP PO SCH (21:17)
[2017-08-25] MEDS: CARVEDILOL 3.125 MG TAB PO SCH (21:17)
[2017-08-25] MEDS: LOVASTATIN 20 MG TAB PO SCH (21:17)
[2017-08-26] MEDS: LEVOTHYROXINE SOD 0.088 MG TAB PO SCH (05:53)
[2017-08-26 08:00] VITALS: BP 158/54
[2017-08-26] MEDS: ASPIRIN 81 MG ENTERIC COATED PO SCH (09:07)
[2017-08-26] MEDS: ALLOPURINOL 300 MG TAB PO SCH (09:08)
[2017-08-26] MEDS: predniSONE 20 MG TAB PO SCH (09:08)
[2017-08-26] MEDS: GABAPENTIN 100 MG CAP PO SCH ×3 (09:08→21:11)
[2017-08-26] MEDS: CARVEDILOL 3.125 MG TAB PO SCH ×2 (09:08→21:11)
[2017-08-26] MEDS: BUMETANIDE 2 MG TAB PO SCH (09:08)
--- NOTE | 2017-08-26 10:00 | Medical Nutrition Therapy ---
Nutrition Anthropometrics Height (Inches): 61.00 Height (Calculated Centimeters: 154.169273 Weight (Pounds): 170 Weight (Calculated Kilograms): 77.111 Cullen Nutrition Score: Probably Inadequate Cullen Nutrition Risk Score: 18 Dietary Referral Nutrition Risk Factors: Nutrition Risk Comment: Physical Findings Physical Appearance: Obese BMI 30-39 Skin Appearance Skin Appearance: Edema Edema Location Modifier: Edema Location: Type of Edema: Degree of Edema: Gastrointestinal Symptoms GI Symtoms: Tube Present: Bowel Sounds: Recent Bowel Pattern: Stool Characteristics: Nutritional Diagnosis Nutritional Risk Acuity 1: Acute/ES Renal Nutritional Risk Acuity 2: CHF w/Complication Past Medical History: CHF, renal failure, ARF, DM II, Gout, hypothyroid, hypokalemia, HTN Nutritional Acuity: 1-High Nutrition Diagnosis: Decreased Nutrient Needs Nutrition Etiology: Physiological Causes Nutrition Problem/Etiology/Sym: Decrease sodium and fluid needs related to ARF evidence by diet order 2g of sodium and fluid restriction 2000ml per day. Energy Requirement: 1318 (Killian Homer Adj BMI>27.5 ) Protein Requirement: 62 (.8g/kg) Fluid Requirement: 1925 (25ml/kg >75 years ) Diet Type: 2 Gram Sodium (NA), CHF Diet, Diabetic, Fluid Restricted (2000ml) Nutrition Intervention: Cont diet as ordered, Encourage intake Drug: Diuretics Nutrition Monitoring & Eval Nutrition Goals: Eat 50-100% Meal, Fluid Restrictions (</=2000ml) RD Patient Assessment Time: [address] Assessment Type: RD Assessment Patient Nutrition Acuity: 1-High Follow Up Date: Sep 02, 2017 Nutritional Comment: 08/26 Pt was admitted for acute renal failure, renal failure and elevated troponin. Pt was transferred from [place]. Pt use to be on short term dialysis, that has stopped. Pt has elevated whole blood glucose (144). Pt is DM II and currently there are no medications in record to help manage her diabetes. Pt is on CHF/ADA diet with fluid restriction of 2000ml and no more than 2g Na per day. Pt has consumed 100% of her meals since she has been transferred. Will continue to monitor pt progress, labs and encourage intake. -DAQUAN IKNG Aug 26, 2017 08:31
[2017-08-26] MEDS ORDERED: CAR3.125 PO (11:43)
[2017-08-26] MEDS ORDERED: BUME1TAB19 PO (11:43)
[2017-08-26 15:10] VITALS: BP 127/61
--- NOTE | 2017-08-26 15:45 | PT ECF NOTE ---
Type of Note: Initial Note Primary Medical Diagnosis: Acute Heart Failure, Acute Renal Failure, Elevated Troponin Physical Therapy Evaluation Date: 08/26/17 SUBJECTIVE: Prior Hospitalization: [facility] 08/19/17-08/25/17 Prior Level of Function: Tiffanie with 4WW or SPC as needed Prior Living Status: Single level house, Alone, Assist by family (pt reports that her daughter comes over every morning to assist with light housework, etc.) Community Services: Support adequate Home Accessibility: 2x3 stairs with rails Equipment Owned: Rollator, Cane Medical Complications/Past Medical History: See EMR for details Psychosocial Support: Supportive daughter Pain Scale (0-10): 3/10 R) knee OBJECTIVE: Strength: Right Lower Extremity: DF: 4/5 Knee flexion: <3/5 (lacking full AROM d/t pain) Knee extension: <3/5 (lacking full AROM d/t pain) Hip flexion: 3+/5 Left Lower Extremity: DF: 4/5 Knee flexion: 4/5 Knee extension: 3+/5 Hip flexion: 3+/5 ROM: Lacking full AROM knee extension/flexion on the R) side Sensation: WNL Other Neuro findings: None noted Bed Mobility: NT, pt up in chair Transfers: CGA with RW Gait: CGA with RW, 2x30' Stairs: NT Gait speed (0.6m/second cannot function independently): 0.35 m/sec ASSESSMENT: PT ECF eval complete. Pt on 4L at rest with SpO2 99%. She requires CGA for transfers and ambulation, 2x30' with use of RW and close chair follow for safety. Pt fatigues very quickly and becomes very dyspneic with activity, requiring standing rest breaks with UE prop on walker. SpO2 WNL on 4L throughout session. Pt will benefit from skilled PT services in order to increase independence with functional mobility prior to d/c home. Problem List/Current Limitations: Pain Decreased activity chase Decreased strength Decreased balance Generalized weakness Shortness of breath Short Term Goals: 1: Pt to complete bed mobility with Tiffanie 2: Pt to complete transfers with Tiffanie and least restrictive AD 3: Pt to ambulate 150' with SBA and least restrictive AD 4: Pt to asc/desc 4 stairs with railing and SBA 5; Pt to improve gait speed to faster than 0.35 m/sec to indicate an improvement in function. Eyeglass Lens Cutter Goals: Pt to discharge home with decreased need of assistance from others Patient Goals: "Breathe better" Rehabilitation Prognosis: Good Barriers for Discharge: Multiple comorbidities, high level of independence necessary to d/c home PLAN: The patient will benefit from skilled physical therapy services 5 times per week for 2 weeks including: Therapeutic Exercise Therapeutic Activities Transfer Training Gait Training Stair Training Manual Therapy Safety Training Neuromuscular Re-educ. Pt/Caregiver Training Bed Mobility Thank you for this referral. If you have any questions, concerns, or comments about this report or plan, please contact me at . Anahi Vargas, PT, DPT MTDD
--- NOTE | 2017-08-26 16:05 | OT ECF NOTE ---
Type of Note: Initial Note Primary Medical Diagnosis: Generalized weakness s/p acute hospital stay for hyperkalemia, increased troponin, acute kidney failure Occupational Therapy Evaluation Date: 08/26/17 SUBJECTIVE: Prior Hospitalization: [facility] 08/19/17 thru 08/25/17 Prior Level of Function: (I) with ADLs. Assist from daughter for IADLs ( cleaning/cooking/community mobility) Prior Living Status: Single level house Alone Assist by family Community Services: No known needs Home Accessibility: All needs on one level Walk-in shower Equipment Owned: Front wheeled walker Toilet riser Tub/shower chair Medical Complications/Past Medical History: Please refer to EMR Psychosocial Support: Supportive daughter Pain Scale (0-10): Pt reporting no pain at time of evaluation OBJECTIVE: Strength: MMT: Right Left Shoulder Flexion WFL WFL Elbow Flexion WFL WFL Wrist Extension WFL WFL Metal Sorter WFL WFL (5= normal, 4= good, 3= fair, 2= poor, 1= trace) ROM: Both upper extremities, WFL Functional Transfer: Assistive Device: Front wheeled walker Transfer Ability: CGA ADL: Upper body dressing: Assistive device: Nine Upper body dressing ability: SBA Lower body dressing: Assistive device: Pt dyspneic with LB dressing, increased assist provided Lower body dressing ability: Minimum assistance Toileting: Assistive device: Toileting ability: N/T Grooming/hygiene: Assistive device: Grooming ability: N/T Bathing: Assistive device: Bathing ability: N/T Standardized Assessment: Leola Index of Activities of Daily Livin/20 at initial evaluation (). ASSESSMENT: Brielle presents with decreased activity tolerance and increased assist for ADLs/IADLs compared to [facility]. At [facility], pt did not have supplemental O2 and was (I) with ADLs and occasional assist for IADLs. Currently, pt becomes dyspneic with ADLs with O2 at 90% on 3.5L. She will benefit from skilled OT services to improve activity tolerance and (I) with ADLs prior to discharge home alone. Problem List/Current Limitations: Decreased activity tolerance Decreased strength Decreased ROM Generalized weakness Shortness of breath Short Term Goals: 1) Pt will be Mod (I) UB/LB dressing. 2) Pt will be Mod (I) toileting. 3) Pt will be (I) grooming/hygiene. 4) Pt will be Mod (I) shower task. 5) Pt Leola Index of ADLs score will increase by 2 points. Tub Mender Goals: Return home with services Patient Goals: Return home Rehabilitation Prognosis: Fair Barriers to Discharge: Medical history PLAN: The patient will benefit from skilled occupational therapy services 5 times per week for 2 weeks including: Ther ex ADL training Safety training Ther act IADL training Transfer training Adaptive equip training Bed mobility Energy conservation Thank you for this referral. If you have any questions, concerns, or comments about this report or plan, please contact me at . Shavon Garcia MS, OTR/L Occupational Therapist [facility]
[2017-08-26] MEDS: LOVASTATIN 20 MG TAB PO SCH (21:11)
[2017-08-27] MEDS: LEVOTHYROXINE SOD 0.088 MG TAB PO SCH (05:35)
[2017-08-27 08:20] VITALS: BP 151/43
[2017-08-27] MEDS: ASPIRIN 81 MG ENTERIC COATED PO SCH (09:34)
[2017-08-27] MEDS: predniSONE 20 MG TAB PO SCH (09:34)
[2017-08-27] MEDS: CARVEDILOL 3.125 MG TAB PO SCH ×2 (09:34→20:49)
[2017-08-27] MEDS: GABAPENTIN 100 MG CAP PO SCH ×3 (09:34→20:49)
[2017-08-27] MEDS: ALLOPURINOL 300 MG TAB PO SCH (09:34)
--- NOTE | 2017-08-27 14:48 | Hospitalist Progress Note ---
Subjective Progress Notes Subjective The patient continues to feel short of breath. Was not on O2 prior to being hospitalized per her report. Currently on 2L of O2. Physical Exam Vital Signs Date Time Temp Pulse Resp B/P (MAP) Pulse Ox O2 Delivery O2 Flow Rate FiO2 08/27/17 11:30 96 Nasal Cannula 1.5 08/27/17 09:20 20 08/27/17 08:20 97.1 74 151/43 (79) 08/27/17 00:37 40.0 Intake and Output 08/28/17 07:00 Intake Total 480 ml Balance 480 ml Intake Oral 480 ml # Voids 1 General Appearance: Alert, Awake, Other (Mild increased work of breathing.) Neuro: No Gross deficits Eyes: PERRLA Cardiovascular: Regular Rate and Rhythm (With PK.) Respiratory: Clear to Auscultation (Posteriorly lying on L side.) GI: Soft and Non-Tender Extremities: Warm, Perfused, Edema (2+ bilaterally.) Integumentary: Generalized Fragile Skin, Other (Ecchymosis over R lateral thigh and scattered throughout.) Psych: Appropriate Mood & Affect Result Diagram: 08/27/17 0615 Assessment and Plan Problems: (1) Shortness of breath Status: Acute Assessment & Plan: The patient developed acute shortness of breath with increased O2 requirements 2 nights ago and was placed on BiPAP. Her O2 requirements have since decreased but she continues to feel short of breath. A VQ scan was negative while at [facility]. She was noted to have bilateral pleural effusions while at [facility]. Will repeat a CXR. (2) Chronic diastolic (congestive) heart failure Assessment & Plan: She was treated for heart failure during her prior admission. She is on chronic treatment with lisinopril. Daily weights are ordered. Will add intake and output. Monitor labs. (3) Acute renal failure Assessment & Plan: She did require dialysis during her prior admission. This has since been discontinued. Follow labs periodically. (4) DM2 (diabetes mellitus, type 2) Assessment & Plan: She was on insulin when she was on high dose steroids. We ordered fingersticks for the first several days. (5) Essential hypertension Assessment & Plan: She is on chronic treatment with hydrochlorothiazide. (6) Hypothyroid Assessment & Plan: She is on chronic treatment with Synthroid. (7) Gout Assessment & Plan: She is on chronic treatment with allopurinol. (8) Pleural effusion Status: Chronic Assessment & Plan: The patient was noted to have bilateral pleural effusions while at [facility]. Will repeat CXR. Time Spent on Plan of Care: < 30 min LEXI JOHNSON MD Aug 27, 2017 14:48
--- NOTE | 2017-08-27 15:51 | RADIOLOGY IMAGING REPORT ---
FACILITY: [facility] PATIENT NAME: Brielle Campbell : 1930 MR: [id number] V: [id number] EXAM DATE: ORDERING PHYSICIAN: LEXI JOHNSON TECHNOLOGIST: Location: [facility] Patient: Brielle Campbell : 1930 Visit/Account:[id number] Date of Sevice: 08/27/2017 Exam type: CHEST SINGLE AP History: Comparison: August 19, 2017. Findings: Study is limited due to hypoventilatory changes. Right pleural effusion appears slightly decreased i n size. There is been development of small left pleural effusion. There is a slight increase in the airspace consolidation lung bases. Also noted is redistribution pulmonary vascular markings likely related to mild pulmonary edema. Cardiac silhouette is unchanged IMPRESSION: 1. Slight decrease in right pleural effusion although interval development of a small left pleural e ffusion and increasing bibasilar airspace consolidation bilaterally Probable mild interstitial pulmonary edema Report Dictated By: Johanne Minor MD at 08/27/2017 3:46 PM Report E-Signed By: Johanne Minor MD at 08/27/2017 3:47 PM WSN:[id number]
[2017-08-27 16:35] VITALS: BP 142/59
[2017-08-27] MEDS: LOVASTATIN 20 MG TAB PO SCH (20:49)
[2017-08-28] MEDS: LEVOTHYROXINE SOD 0.088 MG TAB PO SCH (05:17)
[2017-08-28 07:18] LABS: PLATELET COUNT, AUTOMATED 103 K/uL (150-450)
[2017-08-28 07:25] VITALS: BP 143/65
[2017-08-28] MEDS: GABAPENTIN 100 MG CAP PO SCH ×3 (08:44→20:25)
[2017-08-28] MEDS: ASPIRIN 81 MG ENTERIC COATED PO SCH (08:44)
[2017-08-28] MEDS: CARVEDILOL 3.125 MG TAB PO SCH ×2 (08:44→20:25)
[2017-08-28] MEDS: ALLOPURINOL 300 MG TAB PO SCH (08:44)
[2017-08-28] MEDS: predniSONE 20 MG TAB PO SCH (08:45)
[2017-08-28] MEDS: BUMETANIDE 2 MG TAB PO SCH (08:45)
[2017-08-28 16:10] VITALS: BP 119/45
[2017-08-28] MEDS: LOVASTATIN 20 MG TAB PO SCH (20:25)
[2017-08-29] MEDS: traMADol 50 MG TAB PO PRN (01:42)
[2017-08-29] MEDS: LEVOTHYROXINE SOD 0.088 MG TAB PO SCH (06:10)
[2017-08-29 07:15] VITALS: BP 144/51
[2017-08-29] MEDS: CARVEDILOL 3.125 MG TAB PO SCH ×2 (08:42→20:19)
[2017-08-29] MEDS: ASPIRIN 81 MG ENTERIC COATED PO SCH (08:42)
[2017-08-29] MEDS: GABAPENTIN 100 MG CAP PO SCH ×3 (08:42→20:19)
[2017-08-29] MEDS: predniSONE 20 MG TAB PO SCH (08:42)
[2017-08-29] MEDS: ALLOPURINOL 300 MG TAB PO SCH (08:42)
[2017-08-29 16:25] VITALS: BP 125/37
[2017-08-29] MEDS: LOVASTATIN 20 MG TAB PO SCH (20:19)
[2017-08-30] MEDS: LEVOTHYROXINE SOD 0.088 MG TAB PO SCH (05:36)
[2017-08-30] MEDS: traMADol 50 MG TAB PO PRN ×2 (06:18→21:24)
[2017-08-30 07:45] VITALS: BP 148/61
[2017-08-30] MEDS: ASPIRIN 81 MG ENTERIC COATED PO SCH (09:12)
[2017-08-30] MEDS: predniSONE 20 MG TAB PO SCH (09:12)
[2017-08-30] MEDS: ALLOPURINOL 300 MG TAB PO SCH (09:12)
[2017-08-30] MEDS: CARVEDILOL 3.125 MG TAB PO SCH ×2 (09:12→21:22)
[2017-08-30] MEDS: BUMETANIDE 2 MG TAB PO SCH (09:13)
[2017-08-30] MEDS: GABAPENTIN 100 MG CAP PO SCH ×3 (09:18→21:22)
[2017-08-30 16:40] VITALS: BP 134/50
[2017-08-30] MEDS: LOVASTATIN 20 MG TAB PO SCH (21:22)
[2017-08-31] MEDS: LEVOTHYROXINE SOD 0.088 MG TAB PO SCH (05:34)
[2017-08-31] MEDS: traMADol 50 MG TAB PO PRN ×3 (05:35→20:28)
[2017-08-31 07:45] VITALS: BP 142/56
[2017-08-31] MEDS: ASPIRIN 81 MG ENTERIC COATED PO SCH (08:48)
[2017-08-31] MEDS: ALLOPURINOL 300 MG TAB PO SCH (08:48)
[2017-08-31] MEDS: CARVEDILOL 3.125 MG TAB PO SCH ×2 (08:48→20:28)
[2017-08-31] MEDS: predniSONE 10 MG TAB PO SCH (08:48)
[2017-08-31] MEDS: GABAPENTIN 100 MG CAP PO SCH ×3 (08:48→20:28)
[2017-08-31 16:20] VITALS: BP 157/71
[2017-08-31] MEDS: LOVASTATIN 20 MG TAB PO SCH (20:28)
[2017-09-01] MEDS: traMADol 50 MG TAB PO PRN (04:20)
[2017-09-01] MEDS: LEVOTHYROXINE SOD 0.088 MG TAB PO SCH (05:50)
[2017-09-01 07:59] VITALS: BP 159/69
[2017-09-01] MEDS: CARVEDILOL 3.125 MG TAB PO SCH ×2 (09:19→21:06)
[2017-09-01] MEDS: ASPIRIN 81 MG ENTERIC COATED PO SCH (09:20)
[2017-09-01] MEDS: ALLOPURINOL 300 MG TAB PO SCH (09:20)
[2017-09-01] MEDS: predniSONE 10 MG TAB PO SCH (09:20)
[2017-09-01] MEDS: GABAPENTIN 100 MG CAP PO SCH ×3 (09:20→21:06)
[2017-09-01] MEDS: BUMETANIDE 2 MG TAB PO SCH (09:20)
--- NOTE | 2017-09-01 15:08 | Medical Nutrition Therapy ---
Nutrition Anthropometrics Height (Inches): 61.00 Height (Calculated Centimeters: 154.480017 Weight (Pounds): 173 Weight (Calculated Kilograms): 78.528 Cullen Nutrition Score: Probably Inadequate Cullen Nutrition Risk Score: 16 Dietary Referral Nutrition Risk Factors: Nutrition Risk Comment: Physical Findings Physical Appearance: Obese BMI 30-39 Skin Appearance Skin Appearance: Edema Edema Location Modifier: Right Edema Location: Foot Type of Edema: Degree of Edema: 3+ Gastrointestinal Symptoms GI Symtoms: Tube Present: Bowel Sounds: Recent Bowel Pattern: Stool Characteristics: Brown, Formed Nutritional Diagnosis Nutritional Risk Acuity 1: Acute/ES Renal Nutritional Risk Acuity 2: CHF w/Complication Past Medical History: CHF, renal failure, ARF, DM II, Gout, hypothyroid, hypokalemia, HTN Nutritional Acuity: 1-High Nutrition Diagnosis: Decreased Nutrient Needs Nutrition Etiology: Physiological Causes Nutrition Problem/Etiology/Sym: Decrease sodium and fluid needs related to ARF evidence by diet order 2g of sodium and fluid restriction 2000ml per day. Energy Requirement: 1318 (Killian Celina Adj BMI>27.5 ) Protein Requirement: 62 (.8g/kg) Fluid Requirement: 1925 (25ml/kg >75 years ) Diet Type: 2 Gram Sodium (NA) Nutrition Intervention: Cont diet as ordered, Encourage intake, HS snack Drug: Diuretics Additional Diet Restrictions: OFFER NUTR SUPPLEMENT Nutrition Monitoring & Eval Nutrition Goals: Eat 75-100% Meal Nutrition Follow-Up: Fair Intake RD Patient Assessment Time: [address] Assessment Type: RD Assessment Patient Nutrition Acuity: 1-High Follow Up Date: Sep 09, 2017 Nutritional Comment: 08/26 Pt was admitted for acute renal failure, renal failure and elevated troponin. Pt was transferred from [place]. Pt use to be on short term dialysis, that has stopped. Pt has elevated whole blood glucose (144). Pt is DM II and currently there are no medications in record to help manage her diabetes. Pt is on CHF/ADA diet with fluid restriction of 2000ml and no more than 2g Na per day. Pt has consumed 100% of her meals since she has been transferred. Will continue to monitor pt progress, labs and encourage intake. -MT 09/01 Diet was changed to 2gm NA diet to offer more choices and encourage intake. Intake has averaged 53% past 3 days. ARF has resolved. BG mildly elevated up to 161. BUN 26, Creatinine 0.7, Alb 2.8. Will offer nutr supplment to increase protein intake. HEIDI CALABRESE Sep 01, 2017 15:08
[2017-09-01 16:15] VITALS: BP 155/57
[2017-09-01] MEDS: LOVASTATIN 20 MG TAB PO SCH (21:06)
[2017-09-02] MEDS: LEVOTHYROXINE SOD 0.088 MG TAB PO SCH (06:08)
[2017-09-02 08:06] VITALS: BP 140/48
[2017-09-02] MEDS: CARVEDILOL 3.125 MG TAB PO SCH ×2 (08:48→21:08)
[2017-09-02] MEDS: GABAPENTIN 100 MG CAP PO SCH ×3 (08:48→21:09)
[2017-09-02] MEDS: ASPIRIN 81 MG ENTERIC COATED PO SCH (08:49)
[2017-09-02] MEDS: predniSONE 10 MG TAB PO SCH (08:49)
[2017-09-02] MEDS: ALLOPURINOL 300 MG TAB PO SCH (08:49)
[2017-09-02] MEDS: traMADol 50 MG TAB PO PRN (15:42)
[2017-09-02 16:15] VITALS: BP 153/61
[2017-09-02] MEDS: LOVASTATIN 20 MG TAB PO SCH (21:08)
[2017-09-03] MEDS: LEVOTHYROXINE SOD 0.088 MG TAB PO SCH (05:47)
[2017-09-03 08:00] VITALS: BP 156/62
[2017-09-03] MEDS: ASPIRIN 81 MG ENTERIC COATED PO SCH (09:00)
[2017-09-03] MEDS: predniSONE 10 MG TAB PO SCH (09:00)
[2017-09-03] MEDS: ALLOPURINOL 300 MG TAB PO SCH (09:00)
[2017-09-03] MEDS: BUMETANIDE 2 MG TAB PO SCH (09:00)
[2017-09-03] MEDS: GABAPENTIN 100 MG CAP PO SCH ×3 (09:00→20:46)
[2017-09-03] MEDS: CARVEDILOL 3.125 MG TAB PO SCH ×2 (09:00→20:46)
[2017-09-03] MEDS: traMADol 50 MG TAB PO PRN (09:29)
[2017-09-03] MEDS ORDERED: LEVO88TA45 PO (13:23)
[2017-09-03] MEDS ORDERED: POTA10CA40 PO (13:23)
[2017-09-03] MEDS ORDERED: GABA-547 PO (13:23)
--- NOTE | 2017-09-03 14:33 | Hospitalist Depart ---
Discharge Summary Reason for Hosp/Final Diag: (1) Valvular heart disease Status: Chronic Hospital Course & Plan: The patient did have an echocardiogram at [facility] that showed an LV EF of 60-65% with grade II diastolic dysfunction of the LV. R ventricle was normal in size and function. She had severe biatrial enlargement. She had severe AR and moderate to severe mitral regurgitation. 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 CV surgery evaluated the patient and felt the risk of surgery was too high and that she was not a surgical candidate for valve replacement. (2) Shortness of breath Status: Acute Hospital Course & Plan: The patient did continue to have some shortness of breath while on ECF. Her oxygen requirements transiently increased but then improved. Lab work and CXR where performed. Her BNP was elevated at 1400 but improved from 1960 prior to discharge from [facility]. Her CXR was not significantly changed compared to reports from [facility]. She continued to require oxygen at 2L per nasal cannula and was discharged on oxygen. (3) Chronic diastolic (congestive) heart failure Hospital Course & Plan: She was treated for diastolic heart failure during her prior admission at [facility]. She is on chronic treatment with carvedilol. She had been on Bumex 1mg daily prior to admission as well and this was decreased to 0.5mg every other day at [facility]. While on ECF, daily weights were followed as well as intake and output. Her weight increased by almost 5 pounds and her Bumex was increased to 0.5mg daily. Her BNP remained elevated during her stay on ECF, but she was clinically improved at the time of discharge. (4) Acute renal failure Hospital Course & Plan: The patient had CISCO likely due to diuretics prior to admission. Her potassium was elevated to 7.4. She was transferred from [facility] ER to [facility] and did require dialysis during her admission there. Her Bumex was decreased (see above). Her potassium was stopped. She will need ongoing monitoring of her labs with adjustments in her diuretic as an outpatient. (5) DM2 (diabetes mellitus, type 2) Hospital Course & Plan: The patient was discharged from [facility] on a short course of tapering prednisone for acute gouty arthritis of her knee. Her BS were elevated while on the higher dose prednisone but improved with tapering of the prednisone. (6) Essential hypertension Hospital Course & Plan: The patient had been on chronic treatment with carvedilol which was continued. (7) Hypothyroid Hospital Course & Plan: She was continued on chronic treatment with Synthroid. (8) Gout Hospital Course & Plan: The patient was continued on chronic treatment with allopurinol. She was started on a short tapering course of prednisone for acute gouty arthritis of her knee while at [facility] and this taper was continued on ECF. (9) Pleural effusion Status: Chronic Hospital Course & Plan: The patient was noted to have bilateral pleural effusions while at [facility]. Repeat CXR while on ECF showed continued small effusions. (10) Elevated transaminase level Status: Chronic Hospital Course & Plan: The patient's transaminases were elevated upon transfer from [facility] but did increase slightly during her stay on ECF. For this reason, her statin was discontinued. She will need to follow up Cardiology and her PCP for further evaluation. Departure Weight (Pounds): 174 Weight (Ounces): 12.0 Result Diagram: 08/28/1770708/28/17707 Condition: Improved Discharge: Home, Home Health PT/OT Follow Up For: PT For Strengthening, OT For ADL's Home Health RN Follow Up For: Nursing Assessment Home Health TOOL AND DIE DESIGNER Follow Up For: ADL Assistance Time Spent: < 30 min Discharge Instructions Home Meds Active Scripts Bumetanide (BUMETANIDE) 1 Mg Tablet, 0.5 MG PO DAILY for 30 Days, Prov:DAVID LIU MD 09/05/17 Reported Medications Gabapentin (GABAPENTIN) 100 Mg Capsule, 100 MG PO TID, CAPSULE 09/03/17 Levothyroxine Sodium (LEVOTHYROXINE SODIUM) 88 Mcg Tablet, 88 MCG PO QDAY 09/03/17 Carvedilol (CARVEDILOL) 3.125 Mg Tab, 3.125 MG PO BID, TAB 08/26/17 Tramadol Hcl (TRAMADOL HCL) 50 Mg Tablet, 50-100 MG PO Q4-6H Y for PAIN, TAB 02/18/16 Aspirin (ASPIRIN) 81 Mg Tablet.dr, 81 MG PO 11/28/11 Allopurinol (Zyloprim) 300 Mg Tab, 300 MG PO QDAY, 0 Refills 04/14/09 Discontinued Reported Medications Lovastatin (Lovastatin) 10 Mg Tablet, 10 MG PO QHS 04/14/09 Potassium Chloride (POTASSIUM CHLORIDE) 10 Meq Capsule.er, 20 MEQ PO BID 09/03/17 Potassium Gluconate (POTASSIUM) 99 Mg Tablet, 99 MG PO 02/12/17 Gabapentin (GABAPENTIN) 300 Mg Capsule, 300 MG PO TID, CAPSULE 02/18/16 Levothyroxine Sodium (Levothyroxine Sodium) 50 Mcg Tablet, 75 MCG PO QAM, 0 Refills 04/14/09 Diet: Diabetic, 2 Gram Sodium (NA) Activity: As Tolerated Special Instructions: Wear oxygen 24/ after discharge. Resume a diabetic low salt diet at home. Copies to: BARRY TARANGO MD; FRANCI PORTER MD Venous Thromboembolism Antithrombotics Is Pt On Any Antithrombotics?: No [id number] Certification Face to Face Home Health Certification Institutional Provider conducted the [id number] encounter. Electronic Undersigning Physician Certifies Home Health. I certify that the patient has been under my care and that I had a [id number] encounter that meets the physician [id number] encounter requirements with this patient. This patient is home-bound due to safety issues and continues to require assistance with ADL's. I certify that based on my findings, that Nursing, Aides and the following Home Health services are medically necessary: PT, OT Medical Necessity: Nursing, Rehab Date Face to Face Conducted: Sep 03, 2017 LEXI JOHNSON MD Sep 03, 2017 14:33
[2017-09-03 15:35] VITALS: BP 128/48
--- NOTE | 2017-09-03 17:08 | Hospitalist Progress Note ---
Subjective Progress Notes Subjective Feeling less short of breath today. Physical Exam Vital Signs Date Time Temp Pulse Resp B/P (MAP) Pulse Ox O2 Delivery O2 Flow Rate FiO2 09/03/17 15:35 98.4 112 20 128/48 (74) 94 Nasal Cannula 2.0 08/30/17 07:45 40.0 Intake and Output 09/04/17 07:00 Intake Total 760 ml Balance 760 ml Intake Oral 760 ml # Voids 1 # Bowel Movements 1 General Appearance: Alert, Awake, No Acute Distress, Afebrile Neuro: No Gross deficits Cardiovascular: Regular Rate and Rhythm Respiratory: Other (Few bibasilar crackles.) GI: Soft and Non-Tender Extremities: Warm, Perfused, Edema (2+ pitting edema both LE.) Integumentary: Generalized Fragile Skin Psych: Appropriate Mood & Affect Assessment and Plan Problems: (1) Valvular heart disease Status: Chronic Assessment & Plan: The patient did have an echocardiogram at [facility] that showed an LV EF of 60-65% with grade II diastolic dysfunction of the LV. R ventricle was normal in size and function. She had severe biatrial enlargement. She had severe AR and moderate to severe mitral regurgitation. 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 CV surgery evaluated the patient and felt the risk of surgery was too high and that she was not a surgical candidate for valve replacement. She will need continued medical management and will need to follow up with her application operations engineer once discharged. (2) Shortness of breath Status: Acute Assessment & Plan: The patient has continued to have some shortness of breath while on ECF but is improved today. Her oxygen requirements transiently increased but then improved. Lab work and CXR where performed. Her BNP was elevated at 1400 but improved from 1959 prior to discharge from [facility]. Her CXR was not significantly changed compared to reports from [facility]. She continues to require oxygen at 2L per nasal cannula and will need to be discharged on oxygen. (3) Chronic diastolic (congestive) heart failure Assessment & Plan: She was treated for diastolic heart failure during her prior admission at [facility]. She is on chronic treatment with carvedilol. She had been on Bumex 1mg daily prior to admission as well and this was decreased to 0.5mg every other day at [facility]. While on ECF, daily weights were followed as well as intake and output. Her weight increased by almost 5 pounds and her Bumex was increased to 0.5mg daily. (4) Acute renal failure Assessment & Plan: The patient had CISCO likely due to diuretics prior to admission. Her potassium was elevated to 7.4. She was transferred from [facility] ER to [facility] and did require dialysis during her admission there. Her Bumex was decreased (see above). Her potassium was stopped. She will need ongoing monitoring of her labs with adjustments in her diuretic as an outpatient. (5) DM2 (diabetes mellitus, type 2) Assessment & Plan: The patient was discharged from [facility] on a short course of tapering prednisone for acute gouty arthritis of her knee. Her BS were elevated while on the higher dose prednisone but improved with tapering of the prednisone. (6) Essential hypertension Assessment & Plan: The patient had been on chronic treatment with carvedilol which was continued. (7) Hypothyroid Assessment & Plan: She was continued on chronic treatment with Synthroid. (8) Gout Assessment & Plan: The patient was continued on chronic treatment with allopurinol. She was started on a short tapering course of prednisone for acute gouty arthritis of her knee while at [facility] and this taper was continued on ECF. (9) Pleural effusion Status: Chronic Assessment & Plan: The patient was noted to have bilateral pleural effusions while at [facility]. Repeat CXR while on ECF showed continued small effusions. Time Spent on Plan of Care: < 30 min LEXI JOHNSON MD Sep 03, 2017 17:08
[2017-09-03] MEDS: LOVASTATIN 20 MG TAB PO SCH (20:46)
[2017-09-04] MEDS: LEVOTHYROXINE SOD 0.088 MG TAB PO SCH (05:24)
[2017-09-04] MEDS: traMADol 50 MG TAB PO PRN ×2 (05:24→21:19)
[2017-09-04 06:12] LABS: PLATELET COUNT, AUTOMATED 129 K/uL (150-450)
[2017-09-04 08:00] VITALS: BP 159/61
[2017-09-04] MEDS: CARVEDILOL 3.125 MG TAB PO SCH ×2 (09:28→21:19)
[2017-09-04] MEDS: BUMETANIDE 2 MG TAB PO SCH (09:28)
[2017-09-04] MEDS: ALLOPURINOL 300 MG TAB PO SCH (09:28)
[2017-09-04] MEDS: predniSONE 10 MG TAB PO SCH (09:28)
[2017-09-04] MEDS: GABAPENTIN 100 MG CAP PO SCH ×3 (09:28→21:19)
[2017-09-04] MEDS: ASPIRIN 81 MG ENTERIC COATED PO SCH (09:28)
[2017-09-04 16:00] VITALS: BP 159/62
[2017-09-05] MEDS: LEVOTHYROXINE SOD 0.088 MG TAB PO SCH (05:39)
[2017-09-05] MEDS ORDERED: BUME1TAB19 PO (06:53)
[2017-09-05 08:00] VITALS: BP 159/54
[2017-09-05] MEDS: GABAPENTIN 100 MG CAP PO SCH (08:52)
[2017-09-05] MEDS: CARVEDILOL 3.125 MG TAB PO SCH (08:52)
[2017-09-05] MEDS: ALLOPURINOL 300 MG TAB PO SCH (08:52)
[2017-09-05] MEDS: BUMETANIDE 2 MG TAB PO SCH (08:52)
[2017-09-05] MEDS: ASPIRIN 81 MG ENTERIC COATED PO SCH (08:52)
--- NOTE | 2017-09-05 09:38 | PT ECF NOTE ---
Type of Note: Discharge Summary Primary Medical Diagnosis: Acute Heart Failure, Acute Renal Failure, Elevated Troponin Physical Therapy Discharge Date: 09/05/17 SUBJECTIVE: Prior Hospitalization: [facility] 08/19/17-08/25/17 Prior Level of Function: Nancy with 4WW or SPC as needed Prior Living Status: Multi-level house, Alone, Assist by family (pt reports that her daughter comes over every morning to assist with light housework, etc.) Community Services: Support adequate Home Accessibility: 2x3 stairs with rails to enter Equipment Owned: Rollator, Cane Medical Complications/Past Medical History: See EMR for details Psychosocial Support: Supportive daughter Pain Scale (0-10): 3/10 R) knee OBJECTIVE: Strength: Right Lower Extremity: DF: 4/5 Knee flexion: 3+/5 Knee extension: 3+/5 Hip flexion: 3+/5 Left Lower Extremity: DF: 4/5 Knee flexion: 4/5 Knee extension: 3+/5 Hip flexion: 3+/5 ROM: WFL Sensation: WNL Other Neuro findings: None noted Bed Mobility: Nancy Transfers: Nancy with 4WW Gait: Nancy with 4WWx 300' Stairs: SBA with railing and SPC Gait speed (0.6m/second cannot function independently): 0.9 m/sec ASSESSMENT: The patient has made good progress with PT interventions and has achieved PT goals prior to d/c home. She demonstrates Nancy with bed mobility, transfers and gait with use of 4WW. A strong emphasis was placed on O2 tubing management with short distance ambulation and multiple turns. The patient demonstrated improved safety and carryover with skilled intervention and will benefit from further instruction from her [facility] PT and OT. Problem List/Current Limitations: Pain Decreased activity chase Decreased strength Decreased balance Generalized weakness Shortness of breath Short Term Goals: (all met) 1: Pt to complete bed mobility with Nancy 2: Pt to complete transfers with Nancy and least restrictive AD 3: Pt to ambulate 150' with SBA and least restrictive AD 4: Pt to asc/desc 4 stairs with railing and SBA 5; Pt to improve gait speed to faster than 0.35 m/sec to indicate an improvement in function. Senior Living Goals: Pt to discharge home with decreased need of assistance from others (met) Patient Goals: "Breathe better" (met) PLAN: The patient will discharge home with [facility] services in place and assistance from her family multiples times throughout the day. It is recommended that she utilize the 4WW for all mobility. Thank you for this referral. If you have any questions, concerns, or comments about this report or plan, please contact me at . Anahi Vargas, PT, DPT [facility]
--- NOTE | 2017-09-05 09:43 | OT ECF NOTE ---
Type of Note: Discharge Note Primary Medical Diagnosis: Generalized weakness s/p acute hospital stay for hyperkalemia, increased troponin, acute kidney failure Occupational Therapy Evaluation Date: 08/26/17 SUBJECTIVE: Prior Hospitalization: [facility] 08/19/17 thru 08/25/17 Prior Level of Function: (I) with ADLs. Assist from daughter for IADLs ( cleaning/cooking/community mobility) Prior Living Status: Single level house Alone Assist by family Community Services: No known needs Home Accessibility: All needs on one level Walk-in shower Equipment Owned: 4WW Toilet riser Tub/shower chair Superintendent Horticulture Medical Complications/Past Medical History: Please refer to EMR Psychosocial Support: Supportive daughter Pain Scale (0-10): Pt reporting no pain at time of evaluation OBJECTIVE: Strength: MMT: Right Left Shoulder Flexion WFL WFL Elbow Flexion WFL WFL Wrist Extension WFL WFL Windows Admin WFL WFL (5= normal, 4= good, 3= fair, 2= poor, 1= trace) ROM: Both upper extremities, WFL Functional Transfer: Assistive Device: 4WW Transfer Ability: Modified Independent ADL: Upper body dressing: Assistive device: Nine Upper body dressing ability: Independent Lower body dressing: Assistive device: Superintendent Horticulture Lower body dressing ability: Modified Independent Toileting: Assistive device: None Toileting ability: Modified Independent Grooming/hygiene: Assistive device: None Grooming ability: Independent Bathing: Assistive device: Shower chair Bathing ability: Modified Independent/SBA Standardized Assessment: Leola Index of Activities of Daily Livin/20 at initial evaluation (). 20/20 at discharge (09/05/17). ASSESSMENT: Brielle presented with decreased activity tolerance and increased assist for ADLs/IADLs compared to PLOF. She has met all skilled OT goals. Problem List/Current Limitations: Decreased activity tolerance Decreased strength Decreased ROM Generalized weakness Shortness of breath Short Term Goals: 1) Pt will be Mod (I) UB/LB dressing. GOAL MET 2) Pt will be Mod (I) toileting. GOAL MET 3) Pt will be (I) grooming/hygiene. GOAL MET 4) Pt will be Mod (I) shower task. GOAL MET 5) Pt Leola Index of ADLs score will increase by 2 points. GOAL MET Marketing Community Liaison Goals: Return home with services Patient Goals: Return home Rehabilitation Prognosis: Fair Barriers to Discharge: Medical history PLAN: The patient will discharge home with services and continued assist from family. Thank you for this referral. If you have any questions, concerns, or comments about this report or plan, please contact me at . Shavon Garcia MS, OTR/L Occupational Therapist [facility]
== END 2017-09-05 09:45 | disposition home health service (06) | DRG 292 ==
LOC: ECF 15:08
PROVIDERS: ADMIT Family Medicine; ATTEND Family Medicine
PROC: 5A09357 Assistance with Respiratory Ventilation, Less than 24 Consecutive Hours, Continuous Positive Airway Pressure (ICD-10-PCS; principal; 2017-08-26)
DX: I11.0 Hypertensive heart disease with heart failure (principal); N17.9 Acute kidney failure, unspecified; I50.32 Chronic diastolic (congestive) heart failure; I08.0 Rheumatic disorders of both mitral and aortic valves; E11.9 Type 2 diabetes mellitus without complications; M1A.9XX0 Chronic gout, unspecified, without tophus (tophi); E03.9 Hypothyroidism, unspecified; I34.8 Other nonrheumatic mitral valve disorders; T50.2X5A Adverse effect of carbonic-anhydrase inhibitors, benzothiadiazides and other diuretics, initial encounter; Z96.652 Presence of left artificial knee joint; Z90.49 Acquired absence of other specified parts of digestive tract; Z90.710 Acquired absence of both cervix and uterus
CPT/HCPCS: 36415; 36416; 71045; 81001; 82040; 82247; 82310; 82374; 82435; 82565; 82947; 82948; 83880; 84075; 84132; 84155; 84295; 84450; 84460; 84520; 85025; 87088; 94660; 94667; 97161; 97166; J7512

== ENCOUNTER → 2017-09-10 | Outpatient (REF) | payer MEDICARE ==
[~2017-09-10] MED LIST changes: +BUME1TAB19 PO; +CAR3.125 PO; +GABA-547 PO; +LEVO88TA45 PO; +POTA10CA40 PO
[2017-09-10 13:41] LABS: PLATELET COUNT, AUTOMATED 187 K/uL (150-450)
== END ==
LOC: ZZSENDIN 13:18
PROVIDERS: ATTEND Family Medicine
DX: N18.9 Chronic kidney disease, unspecified (principal)
CPT/HCPCS: 85025

== ENCOUNTER 2017-09-23 10:43 | Inpatient (IN) | payer MEDICARE ==
[2017-09-23] VITALS (9 sets, daily range): BP systolic 132–162; BP diastolic 42–78
[~2017-09-23] VITALS: Ht 149.9 cm; Wt 72.1 kg
[~2017-09-23 10:43] MED LIST changes: -POTA20TA94 PO
[2017-09-23] MEDS ORDERED: NITROGLYCERIN 0.4 MG SUBL SL ONE ×3 (10:59→11:00)
[2017-09-23] MEDS ORDERED: MORPHINE 4 MG/ML SDV IVP ONE (11:10)
--- NOTE | 2017-09-23 11:20 | EKG ---
FACILITY: [facility] PATIENT NAME: BARBER IBRAHIM : [id number] MR: [id number] V: [id number] EXAM DATE: ORDERING PHYSICIAN: ABEBE ABDUL TECHNOLOGIST: LEANDRA Test Reason : ER Blood Pressure : / mmHG Vent. Rate : 095 BPM Atrial Rate : 133 BPM P-R Int : 000 ms QRS Dur : 140 ms QT Int : 410 ms P-R-T Axes : 000 131 -07 degrees QTc Int : 515 ms Atrial fibrillation Right bundle branch block Abnormal ECG When compared with ECG of 19-AUG-2017 20:03, Relatively unchanged Confirmed by DAVID LIU ([id number]) on 09/23/2017 2:02:08 PM Referred By: FRANKO Confirmed By:DAVID LIU
--- NOTE | 2017-09-23 11:25 | ER Report ---
History and Physical Time Seen By MD: 10:52 Hx. of Stated Complaint: pt presents in resp distress, initially c/o cp HPI/ROS CHIEF COMPLAINT: difficulty breathing HISTORY OF PRESENT ILLNESS: HPI/ROS limited from pt due to respiratory distress ; pt has had worsening chf since being hospitalized for sepsis last year. Per pt and daughter who is poa, pt is dnr/dni and does not want invasive procedures ; awoke this am in some resp distress that has worsened quickly today. Initially had cp but denies currently, now with sig difficulty breathing. Worse with any movement. slightly improved when laying on r side REVIEW OF SYSTEMS: unable to obtain complete ros due to condition Remainder of the 14 system rev: No Allergies: Coded Allergies: No Known Drug Allergies (Verified , 09/23/17) Home Meds Active Scripts Bumetanide (BUMETANIDE) 1 Mg Tablet, 0.5 MG PO DAILY for 30 Days, Prov:DAVID LIU MD 09/05/17 Reported Medications Gabapentin (GABAPENTIN) 100 Mg Capsule, 100 MG PO TID, CAPSULE 09/03/17 Levothyroxine Sodium (LEVOTHYROXINE SODIUM) 88 Mcg Tablet, 88 MCG PO QDAY 09/03/17 Carvedilol (CARVEDILOL) 3.125 Mg Tab, 3.125 MG PO BID, TAB 08/26/17 Tramadol Hcl (TRAMADOL HCL) 50 Mg Tablet, 50-100 MG PO Q4-6H Y for PAIN, TAB 02/18/16 Aspirin (ASPIRIN) 81 Mg Tablet.dr, 81 MG PO 11/28/11 Allopurinol (Zyloprim) 300 Mg Tab, 300 MG PO QDAY, 0 Refills 04/14/09 Past Medical/Surgical History chf, afib, sepsis Reviewed Nurses Notes: Yes Old Medical Records Reviewed: Yes Hx Smoking: No Smoking Status: Never Smoker Hx Substance Use Disorder: No Hx Alcohol Use: No Constitutional Vital Sign - Last 24 Hours 09/23/17 09/23/17 09/23/17 09/23/17 10:43 10:48 10:50 10:53 Temp 98.9 Pulse ??? 95 110 96 Resp 32 B/P (MAP) 166/129 (141) 166/129 Pulse Ox 96 96 96 O2 Delivery Non-Rebreather 09/23/17 09/23/17 09/23/17 09/23/17 10:55 10:55 10:55 10:59 B/P (MAP) 173/91 (118) Pulse Ox 99 O2 Delivery Bi-PAP O2 Flow Rate 10.0 FiO2 90.0 90.0 09/23/17 09/23/17 09/23/17 09/23/17 11:00 11:03 11:05 11:10 Pulse 120 102 Resp 26 B/P (MAP) 190/82 (118) 191/82 (118) 181/81 (114) Pulse Ox 97 100 09/23/17 09/23/17 09/23/17 09/23/17 11:16 11:21 11:25 11:33 Pulse 92 85 Resp 21 B/P (MAP) 163/64 (97) Pulse Ox 100 100 O2 Delivery Bi-PAP FiO2 70.0 09/23/17 09/23/17 12:03 12:04 Pulse Ox 98 O2 Delivery Bi-PAP FiO2 60.0 60.0 Physical Exam General Appearance: pt is in significant respiratory distress. Able to nod yes/no Eyes: Pupils equal and round no pallor or injection. ENT, Mouth: Mucous membranes are moist. Respiratory: crackles, decreased breath sounds, tachypneic Cardiovascular: borderline tachycardia, irregularly irregular Gastrointestinal: Abdomen is soft and non tender, no masses, bowel sounds normal. Neurological: awake, responsive, follows simple commands Skin: diaphoretic Musculoskeletal: Neck is supple non tender. LE edema bilaterally [ ] [DIFFERENTIAL DIAGNOSIS: After history and physical exam differential diagnosis was considered for chf, acs, pe, ptx, pneumonia or other emergent etiology Medical Decision Making Data Points Laboratory Hematology Test 09/23/17 11:04 09/23/17 12:00 Blood Gas Puncture Site Left radial Blood Gas Patient Temperature 98.9 DEGREES Arterial Blood pH 7.30 (7.35-7.45) Arterial Blood Partial Pressure CO2 54 mmHg (32-37) Arterial Blood Partial Pressure O2 138 mmHg (60-80) Arterial Blood HCO3 26 mmol/L (20-26) Arterial Blood Oxygen Saturation 99 % (92-100) Arterial Blood Base Excess 0.0 mmol/L Tacho Test Acceptable Oxygen Liters/Minute 100% Chemistry Test 09/23/17 11:04 09/23/17 12:00 Blood Gas Puncture Site Left radial Blood Gas Patient Temperature 98.9 DEGREES Arterial Blood pH 7.30 (7.35-7.45) Arterial Blood Partial Pressure CO2 54 mmHg (32-37) Arterial Blood Partial Pressure O2 138 mmHg (60-80) Arterial Blood HCO3 26 mmol/L (20-26) Arterial Blood Oxygen Saturation 99 % (92-100) Arterial Blood Base Excess 0.0 mmol/L Tacho Test Acceptable Oxygen Liters/Minute 100% Coagulation Test 09/23/17 12:00 EKG/Imaging EKG Interpretation 12 lead EKG: Rhythm: a fib [place]: normal QRS: widened ST segments: st elevation avr, flipped t v3-6, avf [ ] Monitor Interpretation: Atrial Fibrillation Imaging X-ray: chest was obtained. I viewed the images myself on the PACS system. My interpretation of the images is: large r pleural effusion, chf. The radiologist interpretation had no clinically significant variation from this interpretation. ED Course/Re-evaluation ED Course pt presents in severe respiratory distress; I placed bipap to which pt began to respond; as she is hypertensive, nitro administered with good effect. Morphine tolerated well. CXR shows large r pleural effusion. Pt accompanied by daughter who is poa; pt and daughter reiterate that she is DNR/DNI and does not want invasive procedures. Specifically she refuses thoracentesis. ABG obtained. Labs pending Will admit to ICU for bipap; consulted Dr. Liu for admission; evaluates pt at bedside Re-evaluation pt improving on bipap with continued resp distress but good oxygenation Decision to Disposition Date: Sep 23, 2017 Decision to Disposition Time: 11:48 Critical Care Time I spent a total of 55 of critical care time in obtaining history, performing a physical exam, bedside monitoring of interventions, collecting and interpreting tests and discussion with consultants but not including time spent performing procedures; respiratory/cardiac failure Depart Departure Latest Vital Signs Vital Signs Date Time Temp Pulse Resp B/P (MAP) Pulse Ox O2 Delivery O2 Flow Rate FiO2 09/23/17 12:04 98 Bi-PAP 60.0 09/23/17 11:33 85 09/23/17 11:25 21 09/23/17 11:21 163/64 (97) 09/23/17 10:59 10.0 09/23/17 10:50 98.9 Impression: Primary Impression: Acute exacerbation of CHF (congestive heart failure) Condition: Critical Disposition: Admitted from ER Referrals: FRANCI PORTER MD (PCP) Problem Qualifiers Primary Impression: Acute exacerbation of CHF (congestive heart failure) Heart failure type: unspecified Qualified Codes: I50.9 - Heart failure, unspecified ABEBE ABDUL MD Sep 23, 2017 11:25
--- NOTE | 2017-09-23 11:38 | RADIOLOGY IMAGING REPORT ---
FACILITY: [facility] - [place] PATIENT NAME: Brielle Campbell : 1930 MR: [id number] V: [id number] EXAM DATE: ORDERING PHYSICIAN: ABEBE ABDUL TECHNOLOGIST: Location: [facility] - [place] Patient: Brielle Campbell : 1930 Visit/Account:[id number] Date of Sevice: 09/23/2017 Exam type: CHEST SINGLE AP History: RESP DISTRESS Comparison: August 27, 2017. Findings: There has been a further increase in the right pleural effusion that appears moderate to large. Smal l left pleural effusion relatively unchanged. There is been an increase in the bibasal airspace cons olidation right greater than left. Cardiac silhouette appears relatively unchanged IMPRESSION: 1. Interval increase in right pleural effusion that appears moderate to large Small left pleural effusion unchanged By basilar airspace consolidation right greater than left has increased Report Dictated By: Johanne Minor MD at 09/23/2017 11:33 AM Report E-Signed By: Johanne Minor MD at 09/23/2017 11:34 AM WSN:[email or web address]
[2017-09-23] MEDS ORDERED: BUMETANIDE 1 MG/4 ML SDV IV ONE (11:45)
[2017-09-23 12:07] LABS: PLATELET COUNT, AUTOMATED 132 K/uL (150-450)
[2017-09-23] MEDS ORDERED: NITROGLYCERIN OINT 1 GM PKT TP ONE ×2 (12:20→14:15)
[2017-09-23 12:32] LABS: INR 1.57
[2017-09-23] MEDS: GABAPENTIN 100 MG CAP PO SCH ×2 (13:47→21:03)
[2017-09-23] MEDS ORDERED: INSULIN HUM LISPRO 100 UN/ML 3 ML VIAL SUBQ PRN (13:50)
--- NOTE | 2017-09-23 14:33 | History & Physical ---
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 She was at [facility] from 08/19 to 08/25 for heart failure exacerbation and ARF requiring dialysis. She was transferred to our ECF on 08/25 and was there until 09/03 recovering from acute illnesses. She went home and has done relatively well. However, yesterday she had some chest tightness that improved with increasing her O2. Then, this morning at about 0300, she became more SOB and had chest tightness. Sitting up helped her symptoms. At 0700, her symptoms worsened, so she was brought to the ER. She did not have n/v/jaw pain/arm pain. In the ER, she was given SL NTG, morphine and placed on BIPAP and had improvement in her chest tightness and was breathing more comfortably. The patient's daughter (and medical POA) doesn't want the patient to have any invasive procedures (i.e. thoracentesis) and requests that the patient be DNR/ DNI. History Problems: (1) Heart failure with preserved left ventricular function (HFpEF) Status: Acute (2) Essential hypertension (3) Hypothyroid Status: Chronic (4) DM2 (diabetes mellitus, type 2) (5) Gout Status: Chronic (6) History of cholecystectomy (7) History of hysterectomy (8) History of total knee replacement Home Meds Active Scripts Bumetanide (BUMETANIDE) 1 Mg Tablet, 0.5 MG PO DAILY for 30 Days, Prov:DAVID LIU MD 09/05/17 Reported Medications Gabapentin (GABAPENTIN) 100 Mg Capsule, 100 MG PO TID, CAPSULE 09/03/17 Levothyroxine Sodium (LEVOTHYROXINE SODIUM) 88 Mcg Tablet, 88 MCG PO QDAY 09/03/17 Carvedilol (CARVEDILOL) 3.125 Mg Tab, 3.125 MG PO BID, TAB 08/26/17 Tramadol Hcl (TRAMADOL HCL) 50 Mg Tablet, 50-100 MG PO Q4-6H Y for PAIN, TAB 02/18/16 Aspirin (ASPIRIN) 81 Mg Tablet.dr, 81 MG PO 11/28/11 Allopurinol (Zyloprim) 300 Mg Tab, 300 MG PO QDAY, 0 Refills 04/14/09 Allergies: Coded Allergies: No Known Drug Allergies (Verified , 09/23/17) Hx Smoking: No Smoking Status: Never Smoker Caffeine Intake: Coffee, Tea Caffeine/Cups Per Day: 2-3 cups of coffee, and tea/day. Hx Alcohol Use: No Hx Substance Use Disorder: No Review of Systems All Systems Reviewed/Normal: Yes, Except as Noted Exam Vital Signs Vital Signs Date Time Temp Pulse Resp B/P (MAP) Pulse Ox O2 Delivery O2 Flow Rate FiO2 09/23/17 12:48 96.3 84 14 134/49 (77) 98 Bi-PAP 55.0 09/23/17 10:59 10.0 General Appearance: Alert, Awake, No Acute Distress Cardiovascular: Other (Regular, 2/6 systolic murmur across the precordium) Respiratory: Other (No BS in lower half on right, insp wheezes diffusely) GI: Abd Soft and Non-Tender Extremities: No Edema Medical Decision Making Data Points Result Diagram: 09/23/17 1200 09/23/17 1200 Item Value Date Time B-Type Natriuretic Peptide 2960 pg/ml H 09/23/17 1200 Troponin I 0.015 ng/ml 09/23/17 1200 Aspartate Amino Transf (AST/SGOT) 36 U/L H 09/23/17 1200 Total Bilirubin 1.8 mg/dl H 09/23/17 1200 Alanine Aminotransferase (ALT/SGPT) 28 U/L 09/23/17 1200 Alkaline Phosphatase 145 U/L H 09/23/17 1200 Platelet Count 187 K/uL 09/10/17 1230 Platelet Count 132 K/uL L 09/23/17 1200 Hemoglobin 10.1 g/dL L 09/10/17 1230 Hemoglobin 11.8 g/dL L 09/23/17 1200 White Blood Count 5.5 k/uL 09/10/17 1230 White Blood Count 4.9 k/uL 09/23/17 1200 White Blood Count 7.9 k/uL 09/04/17 0529 Hemoglobin 10.4 g/dL L 09/04/17 0529 Platelet Count 129 K/uL L 09/04/17 0529 Prothromb Time International Ratio 1.57 09/23/17 1200 EKG / Imaging EKG Interpretation Vent. Rate : 095 BPM Atrial Rate : 133 BPM P-R Int : 000 ms QRS Dur : 140 ms QT Int : 410 ms P-R-T Axes : 000 131 -07 degrees QTc Int : 515 ms Atrial fibrillation Right bundle branch block Abnormal ECG When compared with ECG of 19-AUG-2017 20:03, Relatively unchanged Confirmed by DAVID LIU ([id number]) on 09/23/2017 2:02:08 PM Imaging CXR - 1. Interval increase in right pleural effusion that appears moderate to large Assessment and Plan Problems: (1) Heart failure with preserved left ventricular function (HFpEF) Status: Acute Assessment & Plan: She presented with chest tightness/SOB since this morning. She is feeling some improvement with BIPAP, SL NTG, and morphine. Bumex IV was given in the ER. She has a large right sided pleural effusion, but the patient and family don't want aggressive intervention on it (i.e. thoracentesis). Will continue with diuresis and try nitroglycerin paste. (2) Valvular heart disease Status: Chronic Assessment & Plan: The patient did have an echocardiogram at [facility] that showed an LV EF of 60-65% with grade II diastolic dysfunction of the LV. R ventricle was normal in size and function. She had severe biatrial enlargement. She had severe AR and moderate to severe mitral regurgitation. 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 CV surgery evaluated the patient and felt the risk of surgery was too high and that she was not a surgical candidate for valve replacement. She will need continued medical management and will need to follow up with her soap drier operator once discharged. (3) Atrial fibrillation Status: Chronic Assessment & Plan: It was seen on a previous ECG. She is rate controlled. Not on stroke prophylaxis. Will use Lovenox at DVT dosing. (4) Hypothyroid Status: Chronic Assessment & Plan: Continue chronic levothyroxine. (5) Gout Status: Chronic Assessment & Plan: Continue chronic allopurinol. (6) Kidney failure Status: Resolved Assessment & Plan: She had ARF with hyperkalemia that required dialysis at the end of August. The patient and family are not sure if they would do that again. Will follow renal function carefully. Copies to: FRANCI PORTER MD Venous Thromboembolism Antithrombotics Is Pt On Any Antithrombotics?: No Exam Sepsis Risk: No Definite Risk DAVID LIU MD Sep 23, 2017 14:33
[2017-09-23] MEDS: traMADol 50 MG TAB PO PRN (21:03)
[2017-09-23] MEDS: CARVEDILOL 3.125 MG TAB PO SCH (21:03)
[2017-09-24] MEDS: LEVOTHYROXINE SOD 0.088 MG TAB PO SCH (06:00)
[2017-09-24 06:39] LABS: PLATELET COUNT, AUTOMATED 109 K/uL (150-450)
[2017-09-24] MEDS ORDERED: KCL (*) 20 MEQ/100 ML PREMIX 100 ML IV SCH (07:15)
[2017-09-24] MEDS ORDERED: NS(*) 0.9% 250 ML BAG 250 ML ONE (07:43)
[2017-09-24 07:46] VITALS: BP 149/50
[2017-09-24] MEDS ORDERED: LEVOTHYROXINE SOD 0.088 MG TAB PO ONE (08:10)
[2017-09-24] MEDS ORDERED: BUMETANIDE 1 MG/4 ML SDV IV SCH ×2 (09:00→15:30)
[2017-09-24] MEDS ORDERED: POTASSIUM CHL 20 MEQ TABCR PO ONE (09:00)
--- NOTE | 2017-09-24 09:02 | RADIOLOGY IMAGING REPORT ---
FACILITY: [facility] - [place] PATIENT NAME: Brielle Campbell : 1930 MR: [id number] V: [id number] EXAM DATE: ORDERING PHYSICIAN: DUY TOURE TECHNOLOGIST: Location: [facility] - [place] Patient: Brielle Campbell : 1930 Visit/Account:[id number] Date of Sevice: 09/24/2017 Exam type: CHEST SINGLE AP History: Increased SOB Comparison: September 23, 2017. Findings: Moderate to large right pleural effusion appears relatively unchanged. Small left pleural effusion r elatively unchanged although the lung bases are not entirely included on the study. Right basilar ai rspace consolidation remains unchanged. There appears to been increase in left basilar airspace cons olidation. Also noted is increased density over the medial aspect of the left thorax. Although this could be artifactual from a skinfold possibility of partially atelectatic left lung would be include d in the differential diagnosis. Cardiac silhouette is unchanged IMPRESSION: 1. Moderate to large right pleural effusion and right basilar airspace consolidation relatively unch anged Small left pleural effusion relatively unchanged. Left basilar airspace consolidation increased Increased density over the medial aspect of the left thorax could be artifactual from a skinfold alth ough the possibility of partially atelectatic left lung would be included in the differential diagnos is. A repeat chest radiograph is recommended for further evaluation. Report Dictated By: Johanne Minor MD at 09/24/2017 8:54 AM Report E-Signed By: Johanne Minor MD at 09/24/2017 8:58 AM WSN:[email or web address]
[2017-09-24] MEDS: ALLOPURINOL 300 MG TAB PO SCH (09:53)
[2017-09-24] MEDS: ENOXAPARIN 40 MG/0.4ML SYR SC SCH (09:53)
[2017-09-24] MEDS: CARVEDILOL 3.125 MG TAB PO SCH ×2 (09:53→20:59)
[2017-09-24] MEDS: GABAPENTIN 100 MG CAP PO SCH ×3 (09:53→20:59)
[2017-09-24] MEDS: ASPIRIN 81 MG ENTERIC COATED PO SCH (09:53)
--- NOTE | 2017-09-24 10:20 | Hospitalist Progress Note ---
Subjective Progress Notes Subjective 87F presented for exacerbation of heart failure. This am reports KCl in IV is burning, discussed with family who report R pleural effusion about one year old and do not wish to sample the fluid at this time. Physical Exam Vital Signs Date Time Temp Pulse Resp B/P (MAP) Pulse Ox O2 Delivery O2 Flow Rate FiO2 09/24/17 07:46 98.1 78 18 149/50 (83) 95 Nasal Cannula 2.0 09/23/17 15:30 38.0 Intake and Output 09/25/17 07:00 Intake Total 0 ml Balance 0 ml Intake Oral 0 ml # Voids 1 General Appearance: Alert, Awake, No Acute Distress Neuro: No Gross deficits Eyes: PERRLA ENT: Normal Neck: No Masses Cardiovascular: Normal Rhythm & Peripheral Pulses Respiratory: Clear to Auscultation Chest: No Tenderness GI: Soft and Non-Tender Lymph: No Adenopathy Musculoskeletal: No Weakness/Pain Extremities: Soft and Non Tender, Warm, Edema Integumentary: Skin Intact without Lesion / Mass Psych: Alert & Oriented X3 Result Diagram: 09/24/17 0556 09/24/17 0556 Monitor Interpretation: Atrial Fibrillation Assessment and Plan Problems: (1) Heart failure with preserved left ventricular function (HFpEF) Status: Acute Assessment & Plan: She presented with chest tightness/SOB since this morning. She is feeling some improvement with BIPAP, SL NTG, and morphine. Bumex IV was given in the ER. She has a large right sided pleural effusion, but the patient and family don't want aggressive intervention on it (i.e. thoracentesis). Will continue with diuresis. (2) Valvular heart disease Status: Chronic Assessment & Plan: The patient did have an echocardiogram at [facility] that showed an LV EF of 60-65% with grade II diastolic dysfunction of the LV. R ventricle was normal in size and function. She had severe biatrial enlargement. She had severe AR and moderate to severe mitral regurgitation. 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 CV surgery evaluated the patient and felt the risk of surgery was too high and that she was not a surgical candidate for valve replacement. She will need continued medical management and will need to follow up with her forest botany instructor once discharged. (3) Hypokalemia Assessment & Plan: K 2.8, will replace with IV and PO as we are diuresing and will lose significant K. Recheck in PM and supplement as necessary. (4) Atrial fibrillation Status: Chronic Assessment & Plan: It was seen on a previous ECG. She is rate controlled. Not on stroke prophylaxis. Will use Lovenox at DVT dosing. (5) Hypothyroid Status: Chronic Assessment & Plan: Continue chronic levothyroxine. (6) Gout Status: Chronic Assessment & Plan: Continue chronic allopurinol. (7) Kidney failure Status: Resolved Assessment & Plan: She had ARF with hyperkalemia that required dialysis at the end of August. The patient and family are not sure if they would do that again. Will follow renal function carefully. Exam Sepsis Risk: No Definite Risk DUBOSE CIELO BARNES DO Sep 24, 2017 10:20
[2017-09-24 10:44] VITALS: Ht 149.9 cm; Wt 72.1 kg
[2017-09-24 11:08] VITALS: BP 164/61
--- NOTE | 2017-09-24 13:58 | EKG ---
FACILITY: [facility] - [place] PATIENT NAME: BARBER IBRAHIM : [id number] MR: [id number] V: [id number] EXAM DATE: ORDERING PHYSICIAN: CIELO BARNES TECHNOLOGIST: CHERIE Goetz Reason : Blood Pressure : / mmHG Vent. Rate : 080 BPM Atrial Rate : 080 BPM P-R Int : 000 ms QRS Dur : 140 ms QT Int : 448 ms P-R-T Axes : 000 129 -27 degrees QTc Int : 516 ms Atrial fibrillation with a competing junctional pacemaker Right bundle branch block Abnormal ECG When compared with ECG of 23-SEP-2017 10:54, No significant change was found Referred By: Confirmed By:
[2017-09-24] MEDS: BUMETANIDE 1 MG/4 ML SDV IVP SCH ×2 (15:57→21:00)
[2017-09-24 16:03] VITALS: BP 149/52
[2017-09-24] MEDS ORDERED: ALBUTEROL/IPRATROPIUM 3 ML NEB ONE (16:59)
[2017-09-24 18:39] VITALS: BP 151/55
[2017-09-24] MEDS: traMADol 50 MG TAB PO PRN (20:59)
[2017-09-25] VITALS (7 sets, daily range): BP systolic 142–169; BP diastolic 46–68
[2017-09-25] MEDS: LEVOTHYROXINE SOD 0.088 MG TAB PO SCH (05:20)
[2017-09-25] MEDS ORDERED: MAGNESIUM SUL* 2 GM/50 ML IVPB 50 ML IVPB ONE (09:05)
[2017-09-25] MEDS: GABAPENTIN 100 MG CAP PO SCH ×3 (09:53→21:17)
[2017-09-25] MEDS: ALLOPURINOL 300 MG TAB PO SCH (09:53)
[2017-09-25] MEDS: POTASSIUM CHL 20 MEQ TABCR PO SCH (09:53)
[2017-09-25] MEDS: CARVEDILOL 3.125 MG TAB PO SCH ×2 (09:53→21:17)
[2017-09-25] MEDS: BUMETANIDE 1 MG/4 ML SDV IVP SCH ×3 (09:54→21:18)
[2017-09-25] MEDS: ASPIRIN 81 MG ENTERIC COATED PO SCH (10:04)
[2017-09-25] MEDS: ENOXAPARIN 40 MG/0.4ML SYR SC SCH (10:04)
[2017-09-25] MEDS: ALBUTEROL/IPRATROPIUM 3 ML NEB NEB PRN ×2 (10:19→10:20)
--- NOTE | 2017-09-25 11:06 | Hospitalist Progress Note ---
Subjective Progress Notes Subjective Dyspnea has improved. Physical Exam Vital Signs Date Time Temp Pulse Resp B/P (MAP) Pulse Ox O2 Delivery O2 Flow Rate FiO2 09/25/17 10:56 97.9 80 20 169/58 (95) 100 Nasal Cannula 2.0 09/23/17 15:30 38.0 General Appearance: Alert, Awake Neck: Other (difficult to assess for JVD) Cardiovascular: Other (Fairly regular with sysolic and diastolic murmurs) Respiratory: Other (diminished breath sounds at both bases (R much greater than L)) GI: Soft and Non-Tender Extremities: Warm, Perfused, Edema Result Diagram: 09/24/17 0556 09/25/17 05 Assessment and Plan Problems: (1) Heart failure with preserved left ventricular function (HFpEF) Status: Acute Assessment & Plan: She presented with chest tightness/SOB. She is feeling some improvement with diuresis, BIPAP, SL nitroglycerin, and morphine. She has a large right sided pleural effusion, but the patient and family initially didn' t want aggressive intervention on it (i.e. thoracentesis). I discussed this again with the patient and her daughter (her medical POA). They will consider this and let me know if they would like to try the thoracentesis for symptom relief. (2) Valvular heart disease Status: Chronic Assessment & Plan: The patient did have an echocardiogram at [facility] that showed an LV EF of 60-65% with grade II diastolic dysfunction of the LV. Right ventricle was normal in size and function. She had severe biatrial enlargement. She had severe AR and moderate to severe MR. 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 CV surgery evaluated the patient and felt the risk of surgery was too high and that she was not a surgical candidate for valve replacement. She will need continued medical management and will need to follow up with her senior human resources representative once discharged. (3) Hypokalemia Assessment & Plan: K+ still low at 3.2, will replace with IV and PO as we are diuresing. Will replace Mg++ as well. Monitor. (4) Atrial fibrillation Status: Chronic Assessment & Plan: It was seen on a previous ECG. She is rate controlled. She has not been on stroke prophylaxis. She is currently on Lovenox. (5) Hypothyroid Status: Chronic Assessment & Plan: Continue chronic levothyroxine. (6) Gout Status: Chronic Assessment & Plan: Continue chronic allopurinol. (7) Kidney failure Status: Resolved Assessment & Plan: She had ARF with hyperkalemia that required dialysis at the end of August 2017. The patient and family are not sure if they would do that again. Will follow renal function closely. Exam Sepsis Risk: No Definite Risk MARLEE JOHNSON MD Sep 25, 2017 11:06
[2017-09-25] MEDS: traMADol 50 MG TAB PO PRN ×2 (12:10→21:32)
--- NOTE | 2017-09-25 17:02 | Medical Nutrition Therapy ---
Nutrition Anthropometrics Height (Inches): 59.00 Height (Calculated Centimeters: 149.855837 Weight (Pounds): 172 Weight (Calculated Kilograms): 78.245 BMI: 34.8 Cullen Nutrition Score: Adequate Cullen Nutrition Risk Score: 18 Dietary Referral Nutrition Risk Factors: Nutrition Risk Comment: Physical Findings Physical Appearance: Obese BMI 30-39 Skin Appearance Skin Appearance: Edema Edema Location Modifier: Both Edema Location: Lower Extremity Type of Edema: Degree of Edema: 1+ Gastrointestinal Symptoms GI Symtoms: Tube Present: Bowel Sounds: Recent Bowel Pattern: Stool Characteristics: Nutritional Diagnosis Nutritional Risk Acuity 2: CHF w/Complication Nutritional Risk Acuity 3: Fair Appetite Past Medical History: CHF, renal failure, ARF, DM II, Gout, hypothyroid, hypokalemia, HTN Nutritional Acuity: 2-Moderate Nutrition Diagnosis: Decreased Nutrient Needs Nutrition Etiology: Physiological Causes Nutrition Problem/Etiology/Sym: Decreased Na and fluid needs r/t physiological causes AEB dx CHF. Nutrition Intervention: Cont diet as ordered, Encourage intake Drug/Nutrition Recommendations: Patient Taking K+ Additional Diet Restrictions: OFFER NUTR SUPPLMENT Nutrition Monitoring & Eval Nutrition Goals: Eat 50-100% Meal Nutrition Follow-Up: Fair Intake RD Patient Assessment Time: [address] Assessment Type: RD Assessment Patient Nutrition Acuity: 2-Moderate Follow Up Date: Sep 30, 2017 Nutritional Comment: 09/24 Pt admitted for CHF. Pt had renal failure but now resolved. Pt is on regular diet and ate 50% of first meal. K+ 2.9. Pt is on a K+ depleteing duiretic and is receiving K+ supplment. BG ranging 73- 165. Alb 2.6. Will offer nutr supplment to increase protein intake. Will cont to monitor and encourage intake. BK 09/25 Pt cont on regular diet. Intake 50% of most meals. BG cont 73- 165- within acceptable range. Will cont to monitor. HEIDI HERNDON Sep 25, 2017 17:02
[2017-09-26 03:29] VITALS: BP 140/72
[2017-09-26 06:16] LABS: PLATELET COUNT, AUTOMATED 111 K/uL (150-450)
[2017-09-26] MEDS: LEVOTHYROXINE SOD 0.088 MG TAB PO SCH (06:17)
[2017-09-26] MEDS: BUMETANIDE 1 MG/4 ML SDV IVP SCH ×2 (08:55→13:47)
[2017-09-26] MEDS: POTASSIUM CHL 20 MEQ TABCR PO SCH (08:56)
[2017-09-26] MEDS: ENOXAPARIN 40 MG/0.4ML SYR SC SCH (08:56)
[2017-09-26] MEDS: CARVEDILOL 3.125 MG TAB PO SCH (08:56)
[2017-09-26] MEDS: ASPIRIN 81 MG ENTERIC COATED PO SCH (08:56)
[2017-09-26] MEDS: GABAPENTIN 100 MG CAP PO SCH ×2 (08:56→13:47)
[2017-09-26] MEDS: ALLOPURINOL 300 MG TAB PO SCH (08:56)
[2017-09-26 09:04] VITALS: BP 153/57
[2017-09-26] MEDS ORDERED: BISACODYL 10 MG SUPP PR ONE (10:20)
[2017-09-26 11:10] VITALS: BP 160/55
[2017-09-26] MEDS ORDERED: POTASSIUM CHL 20 MEQ TABCR PO ONE (11:30)
[2017-09-26] MEDS ORDERED: BUME1TAB19 PO (12:47)
[2017-09-26] MEDS ORDERED: POTA20TA94 PO (12:47)
--- NOTE | 2017-09-26 16:09 | Hospitalist Depart ---
Discharge Summary Reason for Hosp/Final Diag: (1) Heart failure with preserved left ventricular function (HFpEF) Status: Acute Hospital Course & Plan: She presented with chest tightness/SOB. She is feeling improvement with diuresis, BIPAP, SL nitroglycerin, and morphine. She has a large right sided pleural effusion, but the patient and family initially didn't want aggressive intervention on it (i.e. thoracentesis). I discussed this again with the patient and her daughter (her medical POA). Increased home Bumex dose to 1mg and prescribed supplemental KCl. Follow up for BMP to monitor Cr and K with PCP or voting machine repairer. Reports cardiology appt 10.01.2017. (2) Valvular heart disease Status: Chronic Hospital Course & Plan: The patient did have an echocardiogram at [facility] that showed an LV EF of 60-65% with grade II diastolic dysfunction of the LV. Right ventricle was normal in size and function. She had severe biatrial enlargement. She had severe AR and moderate to severe MR. 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 CV surgery evaluated the patient and felt the risk of surgery was too high and that she was not a surgical candidate for valve replacement. (3) Hypokalemia Hospital Course & Plan: Begin home KCl PO, recheck BMP within one week. Adjust dose PRN. (4) Atrial fibrillation Status: Chronic Hospital Course & Plan: It was seen on a previous ECG. She is rate controlled. She has not been on stroke prophylaxis. Defer to cardiology and PCP on stroke PPx. (5) Hypothyroid Status: Chronic Hospital Course & Plan: Continue levothyroxine. (6) Gout Status: Chronic Hospital Course & Plan: Continue allopurinol. (7) Kidney failure Status: Resolved Hospital Course & Plan: She had ARF with hyperkalemia that required dialysis at the end of August 2017. Departure Weight (Pounds): 159 Weight (Ounces): 8.0 Result Diagram: 09/26/1749 09/26/17548 Condition: Improved Discharge: Home Health PT/OT Follow Up For: PT For Strengthening, OT For ADL's Home Health RN Follow Up For: Medication Management, Nursing Assessment Home Health MANUFACTURING ACCOUNTANT Follow Up For: ADL Assistance Follow-Up Labs: Other (BMP recheck Cr and K levels) Discharge Instructions Home Meds Active Scripts Bumetanide (BUMETANIDE) 1 Mg Tablet, 1 MG PO DAILY for 30 Days, #30 TAB Prov:CIELO BURCH DO 09/26/17 Potassium Chloride (POTASSIUM CHLORIDE) 20 Meq Tab.er.prt, 20 MEQ PO DAILY for 14 Days, #14 TAB Prov:CIELO BURCH DO 09/26/17 Reported Medications Gabapentin (GABAPENTIN) 100 Mg Capsule, 100 MG PO TID, CAPSULE 09/03/17 Levothyroxine Sodium (LEVOTHYROXINE SODIUM) 88 Mcg Tablet, 88 MCG PO QDAY 09/03/17 Carvedilol (CARVEDILOL) 3.125 Mg Tab, 3.125 MG PO BID, TAB 08/26/17 Tramadol Hcl (TRAMADOL HCL) 50 Mg Tablet, 50-100 MG PO Q4-6H Y for PAIN, TAB 02/18/16 Aspirin (ASPIRIN) 81 Mg Tablet.dr, 81 MG PO 11/28/11 Allopurinol (Zyloprim) 300 Mg Tab, 300 MG PO QDAY, 0 Refills 04/14/09 Discontinued Scripts Bumetanide (BUMETANIDE) 1 Mg Tablet, 0.5 MG PO DAILY for 30 Days, Prov:DAVID LIU MD 09/05/17 Diet: 2 Gram Sodium (NA) Activity: As Tolerated Special Instructions: Weight am of discharge 72.1 kg. Copies to: FRANCI PORTER MD Venous Thromboembolism Antithrombotics Is Pt On Any Antithrombotics?: No [id number] Certification Face to Face Home Health Certification Institutional Provider conducted the [id number] encounter. Electronic Undersigning Physician Certifies Home Health. I certify that the patient has been under my care and that I had a gfcm-ph-byro encounter that meets the physician [id number]-[id number] encounter requirements with this patient. This patient is home-bound due to safety issues and continues to require assistance with ADL's. I certify that based on my findings, that Nursing, Aides and the following Home Health services are medically necessary: CHF monitoring, medication compliance, ADL, PT/OT Medical Necessity: Nursing, Rehab Date Face to Face Conducted: Sep 26, 2017 CIELO BURCH DO Sep 26, 2017 16:09
[2017-09-26] MEDS: traMADol 50 MG TAB PO PRN (16:53)
== END 2017-09-26 18:05 | disposition home health service (06) | DRG 293 ==
LOC: ER 10:56 → MED 12:18
PROVIDERS: ADMIT Internal Medicine; ATTEND Internal Medicine
PROC: 5A09357 Assistance with Respiratory Ventilation, Less than 24 Consecutive Hours, Continuous Positive Airway Pressure (ICD-10-PCS; principal; 2017-09-23)
DX: I11.0 Hypertensive heart disease with heart failure (principal); I50.33 Acute on chronic diastolic (congestive) heart failure; I71.2 Thoracic aortic aneurysm, without rupture; I34.0 Nonrheumatic mitral (valve) insufficiency; E11.9 Type 2 diabetes mellitus without complications; Z66 Do not resuscitate; E03.9 Hypothyroidism, unspecified; I48.2 Chronic atrial fibrillation; R06.03 Acute respiratory distress; M1A.9XX0 Chronic gout, unspecified, without tophus (tophi); E87.6 Hypokalemia; Z98.1 Arthrodesis status; Z90.49 Acquired absence of other specified parts of digestive tract; Z90.710 Acquired absence of both cervix and uterus; Z96.652 Presence of left artificial knee joint
CPT/HCPCS: 36415; 36416; 36600; 71045; 82040; 82247; 82310; 82374; 82435; 82565; 82803; 82947; 82948; 83735; 83880; 84075; 84132; 84155; 84295; 84450; 84460; 84484; 84520; 85025; 85379; 85610; 85730; 93005; 94640; 94660; 96374; 97161; 97165; 99284; 99291; J1650; J2270; J3475; J3480; J3490; J7050

== ENCOUNTER → 2017-09-23 | Outpatient (CLI) | payer MEDICARE ==
[~2017-09-23] MED LIST changes: +POTA20TA94 PO
[2017-09-24 10:44] VITALS: BMI 35.1
== END ==
LOC: AMB 10:15
PROVIDERS: ATTEND Nurse Practitioner
DX: R07.1 Chest pain on breathing (principal); R10.9 Unspecified abdominal pain; R06.00 Dyspnea, unspecified
CPT/HCPCS: A0425; A0427

== ENCOUNTER → 2017-10-01 | Outpatient (CLI) | payer MEDICARE ==
[2017-09-24 10:44] VITALS: BMI 35.1
[~2017-10-01] MED LIST changes: +POTA20TA94 PO
== END ==
LOC: LAB 15:26
PROVIDERS: ATTEND Internal Medicine Cardiovascular Disease
DX: I50.9 Heart failure, unspecified (principal); R74.0 Nonspecific elevation of levels of transaminase and lactic acid dehydrogenase [LDH]
CPT/HCPCS: 36415; 82040; 82247; 82310; 82374; 82435; 82565; 82947; 83880; 84075; 84132; 84155; 84295; 84450; 84460; 84520

== ENCOUNTER → 2017-11-21 | Outpatient (REF) | payer MEDICARE ==
[2017-09-24 10:44] VITALS: BMI 35.1
== END ==
LOC: ZZSENDIN 13:37
PROVIDERS: ATTEND Family Medicine
DX: I50.32 Chronic diastolic (congestive) heart failure (principal)
CPT/HCPCS: 82310; 82374; 82435; 82565; 82947; 84132; 84295; 84520

== ENCOUNTER 2018-02-06 17:30 | Observation (INO) | payer MEDICARE ==
[~2018-02-06] VITALS: Ht 149.9 cm; Wt 71.3 kg
[~2018-02-06 17:30] MED LIST changes: -ACET500T68 PO; -BUME0.5T10 PO; -DOCU-416 PO; -METO5TAB79 PO; -POLY17PO25 PO
[2018-02-06] MEDS ORDERED: CALCIUM GLUC(*)10% 100MG/ML VL 1,000 MG in NS(*) 0.9% 100 ML BAG 100 ML IVPB ONE (17:45)
[2018-02-06] MEDS ORDERED: ACET500T68 PO (17:52)
[2018-02-06] MEDS ORDERED: METO5TAB79 PO (17:52)
[2018-02-06] MEDS ORDERED: POTA20TA94 PO (17:52)
[2018-02-06] MEDS ORDERED: POLY17PO25 PO (17:52)
[2018-02-06] MEDS ORDERED: DOCU-416 PO (17:52)
--- NOTE | 2018-02-06 18:00 | ER Report ---
History and Physical Time Seen By MD: 17:57 Hx. of Stated Complaint: potassium level elevated told to come to er per dr chelle NORTON/CORINA CHIEF COMPLAINT: Hyperkalemia HISTORY OF PRESENT ILLNESS: 87-year-old female with advanced stage congestive heart failure was sent in by her primary care physician, Dr. Claire her elev ated potassium of 7.3. Patient's asymptomatic. Her daughters who have power of autocad draftsman note that she has retained fluid in her breast and chest wall. She recently had her Bumex discontinued and she was placed on Zaroxolyn as her diuretic. She was having low potassiums with this, so they put her on 20 mg once a potassium twice a day. She was in for reevaluation today and noted have an elevated potassium. Patient notes no chest pain, no shortness of breath no diaphoresis, no nausea, no weakness. Patient's family reports she's previously been placed on hospice for congestive heart failure. Patient has a recent hospitalization from several months back in August. Significant past medical history was garnered during review of that visit. REVIEW OF SYSTEMS: Respiratory: No cough, no dyspnea. Cardiovascular: No chest pain, no palpitations. Gastrointestinal: No vomiting, no abdominal pain. Musculoskeletal: No back pain. Allergies: Coded Allergies: No Known Drug Allergies (Verified , 02/06/18) Home Meds Active Scripts Bumetanide (BUMETANIDE) 0.5 Mg Tablet, 0.5 MG PO DAILY, #30 Prov:DAVID LIU MD 02/08/18 Potassium Chloride (POTASSIUM CHLORIDE) 20 Meq Tab.er.prt, 1 TAB PO DAILY for 30 Days, Prov:DAVID LIU MD 02/08/18 Reported Medications Acetaminophen (TYLENOL EXTRA STRENGTH) 500 Mg Tablet, 500 MG PO 2-4XD PRN for pain, TAB 02/06/18 Docusate Sodium (COLACE) 100 Mg Capsule, 100 MG PO QDAY, CAPSULE 02/06/18 Polyethylene Glycol 3350 (MIRALAX) 17 Gm Powd.pack, 17 GM PO QDAY, PKT 02/06/18 Gabapentin (GABAPENTIN) 100 Mg Capsule, 100 MG PO TID, CAPSULE 09/03/17 Levothyroxine Sodium (LEVOTHYROXINE SODIUM) 88 Mcg Tablet, 88 MCG PO QDAY 09/03/17 Carvedilol (CARVEDILOL) 3.125 Mg Tab, 3.125 MG PO BID, TAB 08/26/17 Tramadol Hcl (TRAMADOL HCL) 50 Mg Tablet, 2 TAB PO Q4-6H PRN for PAIN, TAB 02/18/16 Aspirin (ASPIRIN) 81 Mg Tablet.dr, 81 MG PO 11/28/11 Allopurinol (Zyloprim) 300 Mg Tab, 300 MG PO QDAY, 0 Refills 04/14/09 Discontinued Reported Medications Metolazone (METOLAZONE) 5 Mg Tablet, 5 MG PO BID 02/06/18 Discontinued Scripts Bumetanide (BUMETANIDE) 1 Mg Tablet, 1 MG PO DAILY for 30 Days, #30 TAB Prov:CIELO BURCH DO 09/26/17 Potassium Chloride (POTASSIUM CHLORIDE) 20 Meq Tab.er.prt, 20 MEQ PO DAILY for 14 Days, #14 TAB Prov:CIELO BURCH DO 09/26/17 Past Medical/Surgical History chf, afib, sepsis Reviewed Nurses Notes: Yes Old Medical Records Reviewed: Yes Hx Smoking: No Smoking Status: Never Smoker Hx Substance Use Disorder: No Hx Alcohol Use: No Constitutional Vital Sign - Last 24 Hours 02/06/18 02/06/18 02/06/18 02/06/18 17:38 17:41 17:43 18:00 Pulse 55 Resp 19 B/P (MAP) 121/41 (67) 121/41 101/50 (67) Pulse Ox 93 O2 Delivery Nasal Cannula Nasal Cannula O2 Flow Rate 3.0 3 02/06/18 02/06/18 02/06/18 02/06/18 18:30 18:35 18:50 19:00 Pulse 51 ??? 53 Resp 23 26 7 B/P (MAP) 135/57 (83) 113/32 (59) Pulse Ox 93 O2 Delivery Nasal Cannula O2 Flow Rate 3 02/06/18 02/06/18 02/06/18 02/06/18 19:05 19:20 19:30 19:35 Pulse 73 77 70 Resp 17 15 11 B/P (MAP) 138/45 (76) Pulse Ox 89 02/06/18 02/06/18 02/06/18 02/06/18 19:40 20:00 20:10 20:25 Pulse 66 68 71 Resp 13 17 16 B/P (MAP) 128/50 (76) 02/06/18 02/06/18 20:30 20:35 Pulse 57 Resp 14 B/P (MAP) 129/41 (70) Physical Exam General Appearance: The patient is alert, has no immediate need for airway protection and no current signs of toxicity. No acute distress, vital signs stable, afebrile, pulse ox normal HEENT: Pupils equal and round no injection. TMs normal, oropharynx without redness or exudate, mucous. Membranes are moist Respiratory: Chest is non tender, lungs are clear to auscultation. Cardiac: regular rate and rhythm, distant heart sounds Gastrointestinal: Abdomen is soft and non tender, no masses, bowel sounds normal. Musculoskeletal: Neck: Neck is supple and non tender. Extremities have full range of motion and are non tender. No calf tenderness, no edema Skin: No rashes or lesions. DIFFERENTIAL DIAGNOSIS: After history and physical exam differential diagnosis was considered for hyperkalemia,shortness of breath including but not limited to pulmonary infectious process, COPD, asthma, pulmonary embolus and congestive heart failure. Medical Decision Making Data Points Result Diagram: 02/08/18 0534 02/08/18 0534 Laboratory Hematology Test 02/06/18 18:02 02/06/18 20:42 Total Bilirubin 1.1 mg/dl (0.2-1.3) Aspartate Amino Transf (AST/SGOT) 38 U/L (0-35) Alanine Aminotransferase (ALT/SGPT) 21 U/L (0-56) Alkaline Phosphatase 143 U/L (0-126) Troponin I 0.015 ng/ml B-Type Natriuretic Peptide 1130 pg/ml (0-100) Total Protein 7.9 g/dl (6.3-8.2) Albumin 4.0 g/dl (3.5-5.0) Stool Occult Blood (IFOB) Negative (NEGATIVE) Chemistry Test 02/06/18 18:02 02/06/18 20:42 Total Bilirubin 1.1 mg/dl (0.2-1.3) Aspartate Amino Transf (AST/SGOT) 38 U/L (0-35) Alanine Aminotransferase (ALT/SGPT) 21 U/L (0-56) Alkaline Phosphatase 143 U/L (0-126) Troponin I 0.015 ng/ml B-Type Natriuretic Peptide 1130 pg/ml (0-100) Total Protein 7.9 g/dl (6.3-8.2) Albumin 4.0 g/dl (3.5-5.0) Stool Occult Blood (IFOB) Negative (NEGATIVE) EKG/Imaging EKG Interpretation 12 lead EK Rhythm: Sinus bradycardia with first-degree AV block with occasional premature supraventricular complex [place]: normal QRS: Right bundle branch block pattern ST segments:, Comparison to previous EKG dated 09/24/17, no significant change. There is some mild increase in the amplitude of the T waves consistent with an elevated potassium. Imaging X-ray: Two-view chest x-ray was obtained. I viewed the images myself on the PACS system. My interpretation of the images is: Right pleural effusion, comparison to previous film 09/24/17, no significant change. The radiologist interpretation had no clinically significant variation from this interpretation. ED Course/Re-evaluation Clinical Indication for ER IV: IV Access ED Course Patient was admitted to an examination room. H&P was done. The differential diagnosis was considered. Patient's initial EKG shows very normal-appearing T waves. Comparison to her previous EKG dated August of this year shows gross flattening of the T waves. A repeat potassium was drawn verified potassium was truly elevated. It did return elevated at 7.7. Patient was medicated with bicarbonate, calcium, dextrose, insulin and Kayexalate. Patient's H&H returned low compared to previous readings from August. Patient denies black stools or vomiting of blood. She is on no blood thinners except a baby aspirin. Her Bielen his elevated to 65. The concern is that she over diuresed or is she an occult GI bleed with breakdown of the blood in the gut causing elevated BUNs. Patient had a bowel movement down here and a bedside commode. Fecal occult blood testing was sent off. 02/06/2018 8:41:35 pm case was discussed with Dr. Chambers hospitalist accepts the patient for treatment of her hyperkalemia, acute renal failure Decision to Disposition Date: Feb 06, 2018 Decision to Disposition Time: 19:50 Depart Departure Latest Vital Signs Vital Signs Date Time Temp Pulse Resp B/P (MAP) Pulse Ox O2 Delivery O2 Flow Rate FiO2 02/06/18 20:35 57 14 02/06/18 20:30 129/41 (70) 02/06/18 19:05 89 02/06/18 18:30 Nasal Cannula 3 Impression: Primary Impression: Hyperkalemia Additional Impressions: Acute renal failure Anemia Condition: Improved Disposition: Admitted from ER Referrals: FRANCI PORTER MD (PCP) New Scripts Bumetanide (BUMETANIDE) 0.5 Mg Tablet 0.5 MG PO DAILY, #30 Prov: DAVID LIU MD 02/08/18 Potassium Chloride (POTASSIUM CHLORIDE) 20 Meq Tab.er.prt 1 TAB PO DAILY for 30 Days, Prov: DAVID LIU MD 02/08/18 Problem Qualifiers Additional Impressions: Acute renal failure Acute renal failure type: unspecified Qualified Codes: N17.9 - Acute kidney failure, unspecified Anemia Anemia type: unspecified type Qualified Codes: D64.9 - Anemia, unspecified NIRMALA HANNON DO Feb 06, 2018 18:00
--- NOTE | 2018-02-06 18:05 | EKG ---
FACILITY: [facility] PATIENT NAME: BARBER IBRAHIM : [id number] MR: [id number] V: [id number] EXAM DATE: ORDERING PHYSICIAN: YURY CALVO TECHNOLOGIST: LEANDRA Test Reason : HYPERKALEMIA Blood Pressure : / mmHG Vent. Rate : 052 BPM Atrial Rate : 052 BPM P-R Int : 254 ms QRS Dur : 174 ms QT Int : 574 ms P-R-T Axes : 048 138 021 degrees QTc Int : 533 ms Sinus bradycardia with 1st degree AV block with premature supraventricular complexes Right bundle branch block Septal infarct , age undetermined Abnormal ECG When compared with ECG of 24-SEP-2017 11:12, Sinus rhythm has replaced Atrial fibrillation Vent. rate has decreased BY 28 BPM QRS duration has increased Septal infarct is now present Nonspecific T wave abnormality no longer evident in Lateral leads Confirmed by FRANCI PETERS ([id number]) on 02/06/2018 9:18:11 PM Referred By: UMESH Confirmed By:FRANCI PETERS
[2018-02-06] MEDS ORDERED: DEXTROSE 50% 50 ML SYR IVP ONE (18:25)
[2018-02-06] MEDS ORDERED: SODIUM BICAR(* 8.4% 50 ML SYR 50 ML SYR IVP ONE (18:25)
[2018-02-06] MEDS ORDERED: INSU HUM REG 100 U/ML(ER ONLY) 10 ML VIAL IV ONE (18:25)
[2018-02-06 18:30] LABS: PLATELET COUNT, AUTOMATED 246 K/uL (150-450)
[2018-02-06] MEDS ORDERED: SODIUM POLYST SULF 15 GM/60 ML PO ONE ×2 (18:30→23:15)
[2018-02-06] MEDS ORDERED: ONDANSETRON 4 MG/2 ML VIAL IVP ONE (19:20)
--- NOTE | 2018-02-06 20:36 | RADIOLOGY IMAGING REPORT ---
FACILITY: [facility] - [place], [place] PATIENT NAME: Brielle Campbell : 1930 MR: [id number] V: [id number] EXAM DATE: ORDERING PHYSICIAN: NIRMALA HANNON TECHNOLOGIST: Location: [facility] [place] Patient: Brielle Campbell : 1930 Visit/Account:[id number] Date of Sevice: 02/06/2018 2 VIEWS CHEST INDICATION: Dyspnea. COMPARISON: 09/24/2017. FINDINGS: Cardiomediastinal silhouette and pulmonary vessels within normal limits. There is persistent small moderate right pleural effusion with right basal atelectasis. Right upper l obes clear. Left lung is clear. No left pleural effusion. No pneumothorax or discrete nodule. Upper abdomen is unremarkable. Bony structures show no acute abnormality. Stable compression of the v ertebral bodies at the thoracolumbar junction. Postsurgical changes of the lumbar spine without seque lae. The upper lumbar spine does show stable sclerotic foci. IMPRESSION: 1. Persistent small to moderate right pleural effusion with right basal atelectasis. Report Dictated By: James Morrow at 02/06/2018 8:29 PM Report E-Signed By: James Morrow at 02/06/2018 8:32 PM [id number]
[2018-02-06 21:10] VITALS: BP 134/47
[2018-02-06] MEDS ORDERED: INFLUENZA VIRUS VAC 0.5ML SYR IM ONLY ONE (22:00)
--- NOTE | 2018-02-06 22:10 | History & Physical ---
History of Present Illness Chief Complaint Hyperkalemia History of Present Illness This patient was sent to the emergency room after she was found to have an elevated potassium level at her physician's office. She reports that her medications were changed recently. She was taken of of Bumex, placed on metolazone, and her potassium was increased. History Problems: (1) Hypothyroid Status: Chronic (2) Gout Status: Chronic (3) Atrial fibrillation Status: Chronic (4) CHF exacerbation (5) Non-ST elevated myocardial infarction Status: Chronic (6) Heart failure with preserved left ventricular function (HFpEF) Status: Chronic (7) History of cholecystectomy (8) History of hysterectomy (9) History of total knee replacement Home Meds Reported Medications Acetaminophen (TYLENOL EXTRA STRENGTH) 500 Mg Tablet, 500 MG PO 2-4XD, TAB 02/06/18 Docusate Sodium (COLACE) 100 Mg Capsule, 100 MG PO QDAY, CAPSULE 02/06/18 Polyethylene Glycol 3350 (MIRALAX) 17 Gm Powd.pack, 17 GM PO QDAY, PKT 02/06/18 Metolazone (METOLAZONE) 5 Mg Tablet, 5 MG PO BID 02/06/18 Potassium Chloride (POTASSIUM CHLORIDE) 20 Meq Tab.er.prt, 2 TAB PO BID 02/06/18 Gabapentin (GABAPENTIN) 100 Mg Capsule, 100 MG PO TID, CAPSULE 09/03/17 Levothyroxine Sodium (LEVOTHYROXINE SODIUM) 88 Mcg Tablet, 88 MCG PO QDAY 09/03/17 Carvedilol (CARVEDILOL) 3.125 Mg Tab, 3.125 MG PO BID, TAB 08/26/17 Tramadol Hcl (TRAMADOL HCL) 50 Mg Tablet, 2 TAB PO Q4-6H PRN for PAIN, TAB 02/18/16 Aspirin (ASPIRIN) 81 Mg Tablet.dr, 81 MG PO 11/28/11 Allopurinol (Zyloprim) 300 Mg Tab, 300 MG PO QDAY, 0 Refills 04/14/09 Discontinued Scripts Bumetanide (BUMETANIDE) 1 Mg Tablet, 1 MG PO DAILY for 30 Days, #30 TAB Prov:CIELO BURCH DO 09/26/17 Potassium Chloride (POTASSIUM CHLORIDE) 20 Meq Tab.er.prt, 20 MEQ PO DAILY for 14 Days, #14 TAB Prov:CIELO BURCH 09/26/17 Allergies: Coded Allergies: No Known Drug Allergies (Verified , 02/06/18) Hx Smoking: No Smoking Status: Never Smoker Caffeine Intake: Coffee, Tea Caffeine/Cups Per Day: 2-3 cups of coffee, and tea/day. Hx Alcohol Use: No Hx Substance Use Disorder: No Review of Systems All Systems Reviewed/Normal: Yes Exam Vital Signs Vital Signs Date Time Temp Pulse Resp B/P (MAP) Pulse Ox O2 Delivery O2 Flow Rate FiO2 02/06/18 20:50 67 14 02/06/18 20:30 129/41 (70) 02/06/18 19:05 89 02/06/18 18:30 Nasal Cannula 3 Neuro: No Gross deficits Eyes: PERRLA Cardiovascular: Regular Rate and Rhythm, No JVD Respiratory: Clear to Auscultation GI: Abd Soft and Non-Tender Extremities: No Edema Integumentary: No Cyanosis Medical Decision Making Data Points Result Diagram: 02/06/18 18002/06/18 180 EKG / Imaging EKG Interpretation EKG reviewed. Assessment and Plan Problems: (1) Hyperkalemia Status: Acute Assessment & Plan: She did present with hyperkalemia, which is likely secondary to recent changes in her medications. She was treated with albuterol, bicarbonate, and Kayexalate in the emergency department. A repeat potassium level has been ordered. (2) Anemia Status: Acute Assessment & Plan: Her Hgb is lower than usual. We will repeat a level in the morning. (3) Chronic diastolic (congestive) heart failure Assessment & Plan: Her most recent ejection fraction (11/17) showed an ejection fraction of 64%. She is on chronic treatment with carvedilol and metolazone. (4) Atrial fibrillation Status: Chronic Assessment & Plan: She is on chronic treatment with aspirin and carvedilol. (5) Hypothyroid Status: Chronic Assessment & Plan: She is on chronic treatment with Synthroid. (6) Gout Status: Chronic Assessment & Plan: She is on chronic treatment with allopurinol. Copies to: FRANCI PORTER MD ; Venous Thromboembolism Antithrombotics Is Pt On Any Antithrombotics?: No Exam Sepsis Risk: No Definite Risk Problem Qualifiers (1) Anemia: Anemia type: unspecified type Qualified Codes: D64.9 - Anemia, unspecified FRANCI PETERS DO Feb 06, 2018 22:10
[2018-02-07] VITALS (11 sets, daily range): BP systolic 114–150; BP diastolic 39–70; Ht 149.9 cm; Wt 71.3 kg
[2018-02-07 05:58] LABS: PLATELET COUNT, AUTOMATED 257 K/uL (150-450)
[2018-02-07] MEDS: LEVOTHYROXINE SOD 0.088 MG TAB PO SCH (06:05)
[2018-02-07] MEDS ORDERED: SODIUM POLYST SULF 15 GM/60 ML PO ONE (06:45)
[2018-02-07] MEDS: POLYETHYLENE GLYCOL 17 GM PKT PO SCH (09:00)
[2018-02-07] MEDS ORDERED: LEVOTHYROXINE SOD 0.088 MG TAB PO SCH (09:00)
[2018-02-07] MEDS: DOCUSATE SODIUM 100 MG CAP PO SCH (09:00)
[2018-02-07] MEDS ORDERED: NS(*) 0.9% 500 ML BAG 500 ML ONE (09:07)
[2018-02-07] MEDS ORDERED: FUROSEMIDE 20 MG/2 ML VIAL IVP ONE ×2 (09:20→14:35)
[2018-02-07] MEDS: ALLOPURINOL 300 MG TAB PO SCH (09:26)
[2018-02-07] MEDS: CARVEDILOL 3.125 MG TAB PO SCH ×2 (09:26→20:17)
[2018-02-07] MEDS: GABAPENTIN 100 MG CAP PO SCH ×3 (09:26→20:17)
--- NOTE | 2018-02-07 09:27 | Hospitalist Progress Note ---
Subjective Progress Notes Subjective She reports feeling "OK". No CP. Dyspnea with activities. Physical Exam Vital Signs Date Time Temp Pulse Resp B/P (MAP) Pulse Ox O2 Delivery O2 Flow Rate FiO2 02/07/18 09:09 85 20 133/57 (82) 95 Nasal Cannula 2.5 02/07/18 06:06 98.0 Intake and Output 02/07/18 07:00 Intake Total 670 ml Balance 670 ml Intake Oral 560 ml IV Total 110 ml # Voids 2 # Bowel Movements 6 General Appearance: Alert, Awake Cardiovascular: Other (Distant tones fairly regular with systolic/diastolic murmurs) Respiratory: Other (diminished at right base) GI: Soft and Non-Tender Extremities: Warm, Perfused Psych: Alert & Oriented X3 Result Diagram: 02/07/1851402/07/18514 Assessment and Plan Problems: (1) Hyperkalemia Status: Acute Assessment & Plan: Improved. She did present with hyperkalemia, which is likely secondary to recent changes in her medications. She was treated with albuterol, bicarbonate, and Kayexalate in the emergency department. Will plan on restart of diuresis today. Watch labs closely. (2) Anemia Status: Acute Assessment & Plan: Her Hgb/Hct are lower than usual and declined further today. Will plan on transfusion of 2 units PRBC today. Watch counts. (3) Chronic diastolic (congestive) heart failure Assessment & Plan: Her most recent ejection fraction (11/17) showed an ejection fraction of 64%. She is on chronic treatment with carvedilol and metolazone. Will plan on restart of diuretics today. Will give Lasix 20mg IV with the transfusion of PRBC. (4) Atrial fibrillation Status: Chronic Assessment & Plan: She is on chronic treatment with aspirin and carvedilol. (5) Hypothyroid Status: Chronic Assessment & Plan: She is on chronic treatment with Synthroid. Check TSH. (6) Gout Status: Chronic Assessment & Plan: She is on chronic treatment with allopurinol. Exam Sepsis Risk: No Definite Risk Problem Qualifiers (1) Anemia: Anemia type: unspecified type Qualified Codes: D64.9 - Anemia, unspecified MARLEE JOHNSON MD Feb 07, 2018 09:27
[2018-02-07] MEDS: traMADol 50 MG TAB PO PRN ×2 (14:09→19:23)
--- NOTE | 2018-02-07 20:20 | Medical Nutrition Therapy ---
Nutrition Anthropometrics Height (Inches): 61.00 Height (Calculated Centimeters: 154.525738 Weight (Pounds): 154 Weight (Calculated Kilograms): 70.080 BMI: 29.2 Cullen Nutrition Score: Adequate Cullen Nutrition Risk Score: 17 Dietary Referral Nutrition Risk Factors: Nutrition Risk Comment: Physical Findings Physical Appearance: Overweight BMI 25-29 Skin Appearance Skin Appearance: Edema Edema Location Modifier: Right Edema Location: breast Type of Edema: Degree of Edema: Gastrointestinal Symptoms GI Symtoms: Diarrhea Tube Present: Bowel Sounds: Recent Bowel Pattern: Diarrhea Stool Characteristics: Brown, Liquid Nutrition/Food History Fair Nutritional Diagnosis Nutritional Risk Acuity 1: Acute/ES Renal Nutritional Risk Acuity 3: Fair Appetite Past Medical History: CHF, renal failure, ARF, DM II, Gout, hypothyroid, hypokalemia, HTN Nutritional Acuity: 1-High Nutrition Diagnosis: Inadequate Food Intake Nutrition Etiology: Change in Appetite Nutrition Problem/Etiology/Sym: Inadequate Oral Intake related to Decreased ability to consume sufficient energy, e.g., increased nutrient needs due to prolonged illness AEB Estimates of insufficient intake of energy from diet when compared to requirements Energy Requirement: 1715 (Runnels-St Jeor: Actual BW X 1.6) Protein Requirement: 70 (Actual BW Kg X 1.0) Diet Type: Diet as Tolerated MARIO/REG Nutrition Intervention: Cont diet as ordered Nutrition Monitoring & Eval Nutrition Goals: Eat 75-100% Meal RD Patient Assessment Time: [address] Assessment Type: RD Assessment Patient Nutrition Acuity: 1-High Follow Up Date: Feb 10, 2018 Nutritional Comment: 02/07/18 Pt admitted for Hyperkalemia. Low H/H, High K+, Glu 132, GFR 32.8. Overwt with BMI of 29.1. Receiving MARIO with 50% consumption of meals. Encourage intake, follow labs, etc. -ALEAH GALINDO Feb 07, 2018 20:20
[2018-02-08 01:26] VITALS: BP 148/52
[2018-02-08 03:56] VITALS: BP 138/48
[2018-02-08] MEDS: LEVOTHYROXINE SOD 0.088 MG TAB PO SCH (05:55)
[2018-02-08 06:16] LABS: PLATELET COUNT, AUTOMATED 231 K/uL (150-450)
[2018-02-08] MEDS: ALLOPURINOL 300 MG TAB PO SCH (09:36)
[2018-02-08] MEDS: DOCUSATE SODIUM 100 MG CAP PO SCH (09:36)
[2018-02-08] MEDS: GABAPENTIN 100 MG CAP PO SCH ×2 (09:36→13:42)
[2018-02-08] MEDS: POLYETHYLENE GLYCOL 17 GM PKT PO SCH (09:36)
[2018-02-08] MEDS: CARVEDILOL 3.125 MG TAB PO SCH (09:36)
[2018-02-08 09:41] VITALS: BP 161/61
[2018-02-08] MEDS ORDERED: POTA20TA94 PO (12:25)
[2018-02-08] MEDS ORDERED: BUME0.5T10 PO (12:25)
[2018-02-08] MEDS ORDERED: BUMETANIDE 2 MG TAB PO ONE (12:30)
--- NOTE | 2018-02-08 12:38 | Hospitalist Depart ---
Discharge Summary Reason for Hosp/Final Diag: (1) Hyperkalemia Status: Resolved Hospital Course & Plan: Improved. She did present with hyperkalemia, which is likely secondary to recent changes in her medications (i.e. increase of potassium and addition of spironolactone). She was treated with albuterol, bicarbonate, and Kayexalate in the emergency department. Potassium now normalized. BMP on 02/10. (2) Anemia Status: Acute Hospital Course & Plan: Her Hgb/Hct were lower than usual and declined further, so was transfused 2 units PRBC on 02/07. She tolerated it well and her Hgb increased appropriately. CBC on 02/10. (3) Chronic diastolic (congestive) heart failure Hospital Course & Plan: She doesn't have any signs or symptoms of an acute exacerbation. Her most recent ejection fraction (11/17) showed an ejection fraction of 64%. She was on chronic treatment with carvedilol and metolazone. Metolazone has been stopped and will have her restart Bumex 0.5mg a day with 20mEq of potassium daily. (4) Atrial fibrillation Status: Chronic Hospital Course & Plan: She is on chronic treatment with aspirin and carvedilol. (5) Hypothyroid Status: Chronic Hospital Course & Plan: She is on chronic treatment with Synthroid. TSH is still pending. (6) Gout Status: Chronic Hospital Course & Plan: She is on chronic treatment with allopurinol. Departure Weight (Pounds): 157 Weight (Ounces): 4.0 Result Diagram: 02/08/18 0534 02/08/18 0534 Item Value Date Time Sodium Level 132 mmol/L L 02/06/18 1642 Potassium Level 7.3 mmol/L *H 02/06/18 1642 Chloride Level 102 mmol/L 02/06/18 1642 Carbon Dioxide Level 20 mmol/L L 02/06/18 1642 Blood Urea Nitrogen 63 mg/dl H 02/06/18 1642 Creatinine 1.60 mg/dl H 02/06/18 1642 Glomerular Filtration Rate Calc 30.5 02/06/18 1642 Calcium Level 8.5 mg/dl 02/06/18 1642 Potassium Level 7.7 mmol/L *H 02/06/18 1802 Blood Urea Nitrogen 65 mg/dl H 02/06/18 1802 Creatinine 1.60 mg/dl H 02/06/18 1802 Creatinine 1.50 mg/dl H 02/06/18 2242 Blood Urea Nitrogen 62 mg/dl H 02/06/18 2242 Potassium Level 6.7 mmol/L *H 02/06/18 2242 Potassium Level 6.4 mmol/L *H 02/07/18 0515 Blood Urea Nitrogen 60 mg/dl H 02/07/18 0515 Creatinine 1.50 mg/dl H 02/07/18 0515 Total Bilirubin 1.1 mg/dl 02/06/18 1802 Aspartate Amino Transf (AST/SGOT) 38 U/L H 02/06/18 1802 Alanine Aminotransferase (ALT/SGPT) 21 U/L 02/06/18 1802 Alkaline Phosphatase 143 U/L H 02/06/18 1802 B-Type Natriuretic Peptide 1130 pg/ml H 02/06/18 1802 Troponin I 0.015 ng/ml 02/06/18 1802 Blood Urea Nitrogen 52 mg/dl H 02/07/18 1757 Creatinine 1.50 mg/dl H 02/07/18 1757 Potassium Level 5.6 mmol/L H 02/07/18 1757 Potassium Level 4.9 mmol/L 02/08/18 0534 Blood Urea Nitrogen 53 mg/dl H 02/08/18 0534 Creatinine 1.40 mg/dl H 02/08/18 0534 Stool Occult Blood (IFOB) Negative 02/06/18 2042 Hemoglobin 8.0 g/dL *L 02/06/18 1802 Hemoglobin 7.8 g/dL *L 02/07/18 0515 Hemoglobin 10.7 g/dL L # 02/08/18 0534 Mean Corpuscular Volume 70.3 fL L 02/06/18 1802 Mean Corpuscular Volume 69.8 fL L 02/07/18 0515 Mean Corpuscular Volume 73.5 fL L 02/08/18 0534 Platelet Count 246 K/uL 02/06/18 1802 Platelet Count 257 K/uL 02/07/18 0515 Platelet Count 231 K/uL 02/08/18 0534 Imaging 02/06/18 CXR - 1. Persistent small to moderate right pleural effusion with right basal atelectasis. EKG Vent. Rate : 052 BPM Atrial Rate : 052 BPM P-R Int : 254 ms QRS Dur : 174 ms QT Int : 574 ms P-R-T Axes : 048 138 021 degrees QTc Int : 533 ms Sinus bradycardia with 1st degree AV block with premature supraventricular complexes Right bundle branch block Septal infarct , age undetermined Abnormal ECG When compared with ECG of 24-SEP-2017 11:12, Sinus rhythm has replaced Atrial fibrillation Vent. rate has decreased BY 28 BPM QRS duration has increased Septal infarct is now present Nonspecific T wave abnormality no longer evident in Lateral leads Confirmed by FRANCI PETERS ([id number]) on 02/06/2018 9:18:11 PM Condition: Improved Discharge: Home Discharge Instructions Home Meds Active Scripts Bumetanide (BUMETANIDE) 0.5 Mg Tablet, 0.5 MG PO DAILY, #30 Prov:DAVID LIU MD 02/08/18 Potassium Chloride (POTASSIUM CHLORIDE) 20 Meq Tab.er.prt, 1 TAB PO DAILY for 30 Days, Prov:DAVID LIU MD 02/08/18 Reported Medications Acetaminophen (TYLENOL EXTRA STRENGTH) 500 Mg Tablet, 500 MG PO 2-4XD PRN for pain, TAB 02/06/18 Docusate Sodium (COLACE) 100 Mg Capsule, 100 MG PO QDAY, CAPSULE 02/06/18 Polyethylene Glycol 3350 (MIRALAX) 17 Gm Powd.pack, 17 GM PO QDAY, PKT 02/06/18 Gabapentin (GABAPENTIN) 100 Mg Capsule, 100 MG PO TID, CAPSULE 09/03/17 Levothyroxine Sodium (LEVOTHYROXINE SODIUM) 88 Mcg Tablet, 88 MCG PO QDAY 09/03/17 Carvedilol (CARVEDILOL) 3.125 Mg Tab, 3.125 MG PO BID, TAB 08/26/17 Tramadol Hcl (TRAMADOL HCL) 50 Mg Tablet, 2 TAB PO Q4-6H PRN for PAIN, TAB 02/18/16 Aspirin (ASPIRIN) 81 Mg Tablet.dr, 81 MG PO 11/28/11 Allopurinol (Zyloprim) 300 Mg Tab, 300 MG PO QDAY, 0 Refills 04/14/09 Discontinued Reported Medications Metolazone (METOLAZONE) 5 Mg Tablet, 5 MG PO BID 02/06/18 Discontinued Scripts Bumetanide (BUMETANIDE) 1 Mg Tablet, 1 MG PO DAILY for 30 Days, #30 TAB Prov:CIELO BURCH DO 09/26/17 Potassium Chloride (POTASSIUM CHLORIDE) 20 Meq Tab.er.prt, 20 MEQ PO DAILY for 14 Days, #14 TAB Prov:CIELO BURCH DO 09/26/17 Diet: Regular Activity: As Tolerated Special Instructions: CBC/BMP/Mg on 02/[address] Porter in 1-2 weeks Copies to: FRANCI PORTER MD ; Venous Thromboembolism Antithrombotics Is Pt On Any Antithrombotics?: No Problem Qualifiers (1) Anemia: Anemia type: unspecified type Qualified Codes: D64.9 - Anemia, unspecified DAVID LIU MD Feb 08, 2018 12:38
== END 2018-02-08 12:39 | disposition home or self-care (01) ==
LOC: ER 18:29 → INTOOBSV 20:49 → MED 20:49
PROVIDERS: ADMIT Family Medicine; ATTEND Family Medicine
DX: E87.5 Hyperkalemia (principal); N17.9 Acute kidney failure, unspecified; I50.32 Chronic diastolic (congestive) heart failure; D64.9 Anemia, unspecified; Z51.5 Encounter for palliative care; E03.9 Hypothyroidism, unspecified; I48.2 Chronic atrial fibrillation; M1A.9XX0 Chronic gout, unspecified, without tophus (tophi); I25.2 Old myocardial infarction; Z90.49 Acquired absence of other specified parts of digestive tract; Z90.710 Acquired absence of both cervix and uterus
CPT/HCPCS: 36415; 36416; 36430; 71046; 82274; 82948; 83880; 84443; 84484; 85025; 86850; 86900; 86901; 86920; 93005; 96365; 96375; 99285; A9270; G0378; J0610; J1940; J2405; J7050; P9016; 82040; 82247; 82310; 82374; 82435; 82565; 82947; 84075; 84132; 84155; 84295; 84450; 84460; 84520; J1815

== ENCOUNTER → 2018-02-06 | Outpatient (CLI) | payer MEDICARE ==
[2017-09-24 10:44] VITALS: BMI 35.1
[~2018-02-06] MED LIST changes: +ACET500T68 PO; +BUME0.5T10 PO; +DOCU-416 PO; +METO5TAB79 PO; +POLY17PO25 PO
== END ==
LOC: LAB 16:33
PROVIDERS: ATTEND Family Medicine
DX: E87.5 Hyperkalemia (principal)
CPT/HCPCS: 36415; 82310; 82374; 82435; 82565; 82947; 84132; 84295; 84520

== ENCOUNTER → 2018-02-10 | Outpatient (CLI) | payer MEDICARE ==
[2018-02-07 20:02] VITALS: BMI 29.1
[~2018-02-10] MED LIST changes: +ACET500T68 PO; +BUME0.5T10 PO; +DOCU-416 PO; +METO5TAB79 PO; +POLY17PO25 PO
[2018-02-10 11:18] LABS: PLATELET COUNT, AUTOMATED 264 K/uL (150-450)
== END ==
LOC: LAB 10:55
PROVIDERS: ATTEND Internal Medicine
DX: N18.9 Chronic kidney disease, unspecified (principal); E78.5 Hyperlipidemia, unspecified
CPT/HCPCS: 36415; 82310; 82374; 82435; 82565; 82947; 83735; 84132; 84295; 84520; 85025

== ENCOUNTER 2018-03-23 08:50 | Inpatient (IN) | payer MEDICARE ==
[2018-02-07 20:02] VITALS: Ht 149.9 cm; Wt 74.4 kg
[~2018-03-23] VITALS: Ht 149.9 cm; Wt 74.4 kg
[~2018-03-23 08:50] MED LIST changes: -SPIR25TA80 PO
--- NOTE | 2018-03-23 08:53 | ER Report ---
History and Physical Time Seen By MD: 08:53 HPI/ROS CHIEF COMPLAINT: Dyspnea HISTORY OF PRESENT ILLNESS: Patient is an 87-year-old female here with complaints of increased dyspnea from baseline. Patient is on 4 L nasal cannula baseline and has been saturating at her normal levels. Patient reportedly feels increasingly more short of breath overnight and especially this morning. Patient also feels more fatigued than normal but denies upper respiratory symptoms of cough, fevers or chest pain. Patient is tolerating oral intake without issue. She does report history of congestive heart failure and Bumex and notes that she feels as if she is accumulating fluid on the lungs. Patient is hemodynamically stable at time of evaluation, afebrile. Patient was placed back on Spirinolactone and metolazone for diuresis. REVIEW OF SYSTEMS: Constitutional: No fever, no chills. Eyes: No discharge. ENT: No sore throat. Cardiovascular: No chest pain, no palpitations. Respiratory: No cough, + increased shortness of breath. Gastrointestinal: No abdominal pain, no vomiting. Genitourinary: No hematuria. Musculoskeletal: No back pain. Skin: No rashes. Neurological: No headache. Allergies: Coded Allergies: No Known Drug Allergies (Verified , 03/23/18) Home Meds Active Scripts Bumetanide (BUMETANIDE) 0.5 Mg Tablet, 0.5 MG PO DAILY, #30 Prov:DAVID LIU MD 02/08/18 Reported Medications Spironolactone (SPIRONOLACTONE) 25 Mg Tablet, 25 MG PO QDAY, TAB 03/23/18 Metolazone (METOLAZONE) 5 Mg Tablet, 5 MG PO QDAY 03/23/18 Potassium Chloride (POTASSIUM CHLORIDE) 10 Meq Capsule.er, 10 MEQ PO QID 03/23/18 Acetaminophen (TYLENOL EXTRA STRENGTH) 500 Mg Tablet, 500 MG PO 2-4XD PRN for pain, TAB 02/06/18 Docusate Sodium (COLACE) 100 Mg Capsule, 100 MG PO QDAY, CAPSULE 02/06/18 Polyethylene Glycol 3350 (MIRALAX) 17 Gm Powd.pack, 17 GM PO QDAY, PKT 02/06/18 Gabapentin (GABAPENTIN) 100 Mg Capsule, 100 MG PO TID, CAPSULE 09/03/17 Levothyroxine Sodium (LEVOTHYROXINE SODIUM) 88 Mcg Tablet, 88 MCG PO QDAY 7/4/18 Carvedilol (CARVEDILOL) 3.125 Mg Tab, 3.125 MG PO BID, TAB 08/26/17 Tramadol Hcl (TRAMADOL HCL) 50 Mg Tablet, 2 TAB PO Q4-6H PRN for PAIN, TAB 02/18/16 Aspirin (ASPIRIN) 81 Mg Tablet.dr, 81 MG PO 11/28/11 Allopurinol (Zyloprim) 300 Mg Tab, 300 MG PO QDAY, 0 Refills 04/14/09 Discontinued Scripts Potassium Chloride (POTASSIUM CHLORIDE) 20 Meq Tab.er.prt, 1 TAB PO DAILY for 30 Days, Prov:DAVID LIU MD 02/08/18 Hx Smoking: No Smoking Status: Never Smoker Hx Substance Use Disorder: No Hx Alcohol Use: No Constitutional Vital Sign - Last 24 Hours 03/23/18 03/23/18 03/23/18 03/23/18 08:50 08:54 08:56 09:00 Temp 98.3 Pulse 78 70 Resp 22 24 B/P (MAP) 166/44 (84) 166/44 169/46 (87) Pulse Ox 88 88 O2 Delivery Nasal Cannula Nasal Cannula O2 Flow Rate 3 03/23/18 03/23/18 09:02 09:20 Pulse 82 Resp 24 Pulse Ox 96 O2 Delivery Nasal Cannula O2 Flow Rate 4.0 4 Physical Exam General Appearance: The patient is alert, has no immediate need for airway protection and no signs of toxicity. NAD Eyes: Pupils equal and round no pallor or injection. ENT, Mouth: Mucous membranes are moist. Respiratory: + tachypnea, + diminished at bases, mild crackles b/l Cardiovascular: Regular rate and rhythm. Gastrointestinal: Abdomen is soft and non tender, no masses, bowel sounds normal. Neurological: No focal neuro deficits Skin: Warm and dry, no rashes. Musculoskeletal: Neck is supple non tender. Extremities are nontender, nonswollen and have full range of motion. DIFFERENTIAL DIAGNOSIS: After history and physical exam differential diagnosis was considered for shortness of breath including but not limited to pulmonary infectious process, COPD, asthma, pulmonary embolus and congestive heart failure. Medical Decision Making Data Points Result Diagram: 03/23/18 0848 03/23/18 0848 Laboratory Hematology Test 03/23/18 08:48 03/23/18 09:20 Red Blood Count 4.91 M/uL (4.17-5.56) Mean Corpuscular Volume 81.2 fL (80.0-96.0) Mean Corpuscular Hemoglobin 24.1 pg (26.0-33.0) Mean Corpuscular Hemoglobin Concent 29.7 g/dL (32.0-36.0) Red Cell Distribution Width 26.8 % (11.5-14.5) Mean Platelet Volume 9.2 fL (7.2-11.1) Neutrophils (%) (Auto) 74.9 % (39.4-72.5) Lymphocytes (%) (Auto) 15.5 % (17.6-49.6) Monocytes (%) (Auto) 9.1 % (4.1-12.4) Eosinophils (%) (Auto) 0.2 % (0.4-6.7) Basophils (%) (Auto) 0.3 % (0.3-1.4) Nucleated RBC Relative Count (auto) 0.1 /100WBC Neutrophils # (Auto) 6.6 K/uL (2.0-7.4) Lymphocytes # (Auto) 1.4 K/uL (1.3-3.6) Monocytes # (Auto) 0.8 K/uL (0.3-1.0) Eosinophils # (Auto) 0.0 K/uL (0.0-0.5) Basophils # (Auto) 0.0 K/uL (0.0-0.1) Nucleated RBC Absolute Count (auto) 0.01 K/uL Peripheral Blood Smear Yes Y/N Sodium Level 138 mmol/L (137-145) Potassium Level 7.0 mmol/L (3.5-5.0) Chloride Level 103 mmol/L (98-107) Carbon Dioxide Level 22 mmol/L (22-31) Blood Urea Nitrogen 42 mg/dl (7-18) Creatinine 1.80 mg/dl (0.52-1.04) Glomerular Filtration Rate Calc 26.6 Random Glucose 66 mg/dl (75-110) Calcium Level 9.0 mg/dl (8.4-10.2) Total Bilirubin 3.3 mg/dl (0.2-1.3) Aspartate Amino Transf (AST/SGOT) 65 U/L (0-35) Alanine Aminotransferase (ALT/SGPT) 38 U/L (0-56) Alkaline Phosphatase 152 U/L (0-126) Troponin I < 0.012 ng/ml B-Type Natriuretic Peptide 1980 pg/ml (0-100) Total Protein 8.3 g/dl (6.3-8.2) Albumin 4.1 g/dl (3.5-5.0) Blood Gas Patient Temperature 98.3 DEGREES Venous Blood pH 7.29 (7.31-7.41) Venous Blood Partial Pressure CO2 43 mmHg Venous Blood Partial Pressure O2 36 mmHg Venous Blood HCO3 21 mmol/L Venous Blood Oxygen Saturation 63 % Venous Blood Base Excess -6 mmol/L Oxygen Liters/Minute 4l Chemistry Test 03/23/18 08:48 03/23/18 09:20 White Blood Count 8.8 k/uL (4.5-11.0) Red Blood Count 4.91 M/uL (4.17-5.56) Hemoglobin 11.9 g/dL (12.0-16.0) Hematocrit 39.8 % (34.0-47.0) Mean Corpuscular Volume 81.2 fL (80.0-96.0) Mean Corpuscular Hemoglobin 24.1 pg (26.0-33.0) Mean Corpuscular Hemoglobin Concent 29.7 g/dL (32.0-36.0) Red Cell Distribution Width 26.8 % (11.5-14.5) Platelet Count 154 K/uL (150-450) Mean Platelet Volume 9.2 fL (7.2-11.1) Neutrophils (%) (Auto) 74.9 % (39.4-72.5) Lymphocytes (%) (Auto) 15.5 % (17.6-49.6) Monocytes (%) (Auto) 9.1 % (4.1-12.4) Eosinophils (%) (Auto) 0.2 % (0.4-6.7) Basophils (%) (Auto) 0.3 % (0.3-1.4) Nucleated RBC Relative Count (auto) 0.1 /100WBC Neutrophils # (Auto) 6.6 K/uL (2.0-7.4) Lymphocytes # (Auto) 1.4 K/uL (1.3-3.6) Monocytes # (Auto) 0.8 K/uL (0.3-1.0) Eosinophils # (Auto) 0.0 K/uL (0.0-0.5) Basophils # (Auto) 0.0 K/uL (0.0-0.1) Nucleated RBC Absolute Count (auto) 0.01 K/uL Peripheral Blood Smear Yes Y/N Glomerular Filtration Rate Calc 26.6 Calcium Level 9.0 mg/dl (8.4-10.2) Total Bilirubin 3.3 mg/dl (0.2-1.3) Aspartate Amino Transf (AST/SGOT) 65 U/L (0-35) Alanine Aminotransferase (ALT/SGPT) 38 U/L (0-56) Alkaline Phosphatase 152 U/L (0-126) Troponin I < 0.012 ng/ml B-Type Natriuretic Peptide 1980 pg/ml (0-100) Total Protein 8.3 g/dl (6.3-8.2) Albumin 4.1 g/dl (3.5-5.0) Blood Gas Patient Temperature 98.3 DEGREES Venous Blood pH 7.29 (7.31-7.41) Venous Blood Partial Pressure CO2 43 mmHg Venous Blood Partial Pressure O2 36 mmHg Venous Blood HCO3 21 mmol/L Venous Blood Oxygen Saturation 63 % Venous Blood Base Excess -6 mmol/L Oxygen Liters/Minute 4l EKG/Imaging EKG Interpretation 12 lead EKG: Atrial fibrillation with a right bundle branch block, rate 73, QTC 564 Rhythm: Atrial fibrillation Imaging Location: [facility] Patient: Brielle Campbell : 1930 Visit/Account:[id number] [facility] Exam type: CHEST SINGLE AP History: RESP DISTRESS Comparison: February 06, 2018. Findings: There is been interval increase of the right pleural effusion but now appears moderate to large. There is also increasing airspace consolidation the right mid to lower lung field. There is been development of increased interstitial perihilar consolidation as well. The cardiac silhouette remains stable. IMPRESSION: 1. Interval increase of the moderate to large right pleural effusion Interval increase of the airspace consolidation right mid to lower lung field Interval increase in the left perihilar interstitial consolidation ED Course/Re-evaluation ED Course Patient is an 87-year-old female with a history of congestive heart failure here with increased dyspnea overnight. Patient is on her baseline oxygen requirement of 4 L nasal cannula.. Patient is afebrile, hemodynamically stable at time of evaluation. Patient was found be hyperkalemic and was given 1 g of calcium, no EKG findings were present, likely due to spironolactone being restarted. Chest x-ray showed a large right-sided pleural effusion which the patient reportedly has had episodes of in the past but refused thoracentesis. Troponin negative. Patient was given Lasix 40 mg IV. I discussed the patient with Dr. Chambers who admitted the patient to the hospitalist service. Decision to Disposition Date: Mar 23, 2018 Decision to Disposition Time: 09:35 Depart Departure Latest Vital Signs Vital Signs Date Time Temp Pulse Resp B/P (MAP) Pulse Ox O2 Delivery O2 Flow Rate FiO2 03/23/18 09:20 82 24 96 Nasal Cannula 4 03/23/18 09:00 169/46 (87) 03/23/18 08:56 98.3 Impression: Primary Impression: Acute exacerbation of CHF (congestive heart failure) Additional Impression: Hyperkalemia Condition: Condition Unchanged Disposition: Admitted from ER Referrals: FRANCI PORTER MD (PCP) Problem Qualifiers YURY CALVO DO Mar 23, 2018 08:53
[2018-03-23] MEDS ORDERED: POTA10CA40 PO (09:08)
[2018-03-23] MEDS ORDERED: METO5TAB79 PO (09:08)
[2018-03-23] MEDS ORDERED: SPIR25TA80 PO (09:08)
[2018-03-23 09:20] LABS: PLATELET COUNT, AUTOMATED 154 K/uL (150-450)
[2018-03-23] MEDS ORDERED: CALCIUM GLUC(*)10% 100MG/ML VL 1,000 MG in NS(*) 0.9% 100 ML BAG 100 ML IVPB ONE (09:20)
[2018-03-23] MEDS ORDERED: FUROSEMIDE 40 MG/4 ML VIAL IVP ONE (09:25)
--- NOTE | 2018-03-23 09:26 | EKG ---
FACILITY: [facility] - [place] PATIENT NAME: BARBER IBRAHIM : [id number] MR: [id number] V: [id number] EXAM DATE: ORDERING PHYSICIAN: YURY CALVO TECHNOLOGIST: JO Goetz Reason : SOB Blood Pressure : / mmHG Vent. Rate : 073 BPM Atrial Rate : 052 BPM P-R Int : 000 ms QRS Dur : 174 ms QT Int : 512 ms P-R-T Axes : 000 149 -01 degrees QTc Int : 564 ms Atrial fibrillation Right bundle branch block Abnormal ECG When compared with ECG of 06-FEB-2018 17:56, Atrial fibrillation has replaced Sinus rhythm Criteria for Septal infarct are no longer present Confirmed by FRANCI PETERS ([id number]) on 03/23/2018 9:39:22 AM Referred By: Confirmed By:FRANCI PETERS
--- NOTE | 2018-03-23 09:45 | RADIOLOGY IMAGING REPORT ---
FACILITY: [facility] - [place] PATIENT NAME: Brielle Campbell : 1930 MR: [id number] V: [id number] EXAM DATE: ORDERING PHYSICIAN: YURY CALVO TECHNOLOGIST: Location: [facility] - [place] Patient: Brielle Campbell : 1930 Visit/Account:[id number] Date of Sevice: 03/23/2018 Exam type: CHEST SINGLE AP History: RESP DISTRESS Comparison: February 06, 2018. Findings: There is been interval increase of the right pleural effusion but now appears moderate to large. The re is also increasing airspace consolidation the right mid to lower lung field. There is been develo pment of increased interstitial perihilar consolidation as well. The cardiac silhouette remains stab le. IMPRESSION: 1. Interval increase of the moderate to large right pleural effusion Interval increase of the airspace consolidation right mid to lower lung field Interval increase in the left perihilar interstitial consolidation Report Dictated By: Johanne Minor MD at 03/23/2018 9:38 AM Report E-Signed By: Johanne Minor MD at 03/23/2018 9:40 AM WSN:[id number]
[2018-03-23 10:34] VITALS: BP 151/68
[2018-03-23] MEDS ORDERED: DEXTROSE 50% 50 ML SYR IVP ONE (11:25)
[2018-03-23] MEDS ORDERED: INSULIN HUM REG 100 UN/ML 3 ML VIAL IVP ONE (11:25)
[2018-03-23] MEDS ORDERED: SODIUM POLYST SULF 15 GM/60 ML PO ONE (11:30)
[2018-03-23] MEDS ORDERED: INSU HUM REG 100 U/ML(ER ONLY) 10 ML VIAL IVP ONE (11:35)
[2018-03-23] MEDS ORDERED: NS(*) 0.9% 1000 ML BAG 1,000 ML ONE (11:45)
--- NOTE | 2018-03-23 12:18 | History & Physical ---
History of Present Illness Chief Complaint Shortness of breath History of Present Illness This patient presented to the emergency room complaining of increased shortness of breath. She has a history of heart failure and her medications were recently adjusted. She reports worsening shortness of breath despite an increase in her diuretics. History Problems: (1) Pleural effusion Status: Chronic (2) Essential hypertension (3) Valvular heart disease Status: Chronic (4) Atrial fibrillation Status: Chronic (5) Gout Status: Chronic (6) Hypothyroid Status: Chronic (7) Heart failure with preserved left ventricular function (HFpEF) Status: Chronic (8) History of cholecystectomy (9) History of hysterectomy (10) History of total knee replacement Home Meds Active Scripts Bumetanide (BUMETANIDE) 0.5 Mg Tablet, 0.5 MG PO DAILY, #30 Prov:DAVID LIU MD 02/08/18 Reported Medications Spironolactone (SPIRONOLACTONE) 25 Mg Tablet, 25 MG PO QDAY, TAB 03/23/18 Metolazone (METOLAZONE) 5 Mg Tablet, 5 MG PO QDAY 03/23/18 Potassium Chloride (POTASSIUM CHLORIDE) 10 Meq Capsule.er, 10 MEQ PO QID 03/23/18 Acetaminophen (TYLENOL EXTRA STRENGTH) 500 Mg Tablet, 500 MG PO 2-4XD PRN for pain, TAB 02/06/18 Docusate Sodium (COLACE) 100 Mg Capsule, 100 MG PO QDAY, CAPSULE 02/06/18 Polyethylene Glycol 3350 (MIRALAX) 17 Gm Powd.pack, 17 GM PO QDAY, PKT 02/06/18 Gabapentin (GABAPENTIN) 100 Mg Capsule, 100 MG PO TID, CAPSULE 09/03/17 Levothyroxine Sodium (LEVOTHYROXINE SODIUM) 88 Mcg Tablet, 88 MCG PO QDAY 09/03/17 Carvedilol (CARVEDILOL) 3.125 Mg Tab, 3.125 MG PO BID, TAB 08/26/17 Tramadol Hcl (TRAMADOL HCL) 50 Mg Tablet, 2 TAB PO Q4-6H PRN for PAIN, TAB 02/18/16 Aspirin (ASPIRIN) 81 Mg Tablet.dr, 81 MG PO 11/28/11 Allopurinol (Zyloprim) 300 Mg Tab, 300 MG PO QDAY, 0 Refills 04/14/09 Discontinued Scripts Potassium Chloride (POTASSIUM CHLORIDE) 20 Meq Tab.er.prt, 1 TAB PO DAILY for 30 Days, Prov:DAVID LIU MD 02/08/18 Allergies: Coded Allergies: No Known Drug Allergies (Verified , 03/23/18) Hx Smoking: No Smoking Status: Never Smoker Caffeine Intake: Coffee, Tea Caffeine/Cups Per Day: 2-3 cups of coffee, and tea/day. Hx Alcohol Use: No Hx Substance Use Disorder: No Review of Systems All Systems Reviewed/Normal: Yes, Except as Noted Respiratory: Shortness of Breath Exam Vital Signs Vital Signs Date Time Temp Pulse Resp B/P (MAP) Pulse Ox O2 Delivery O2 Flow Rate FiO2 03/23/18 11:12 94 Nasal Cannula 4.0 03/23/18 09:20 82 24 03/23/18 09:00 169/46 (87) 03/23/18 08:56 98.3 Neuro: No Gross deficits Eyes: PERRLA Cardiovascular: Regular Rate and Rhythm Respiratory: Other (Dimished breath sounds on the right.) GI: Abd Soft and Non-Tender Extremities: Edema Integumentary: No Cyanosis Medical Decision Making Data Points Result Diagram: 03/23/18 0848 03/23/18 1055 EKG / Imaging Imaging Chest x-ray reviewed. Assessment and Plan Problems: (1) Hyperkalemia Status: Resolved Assessment & Plan: She did present with an elevated potassium level. She has been treated with a dose of Insulin and D50. She was also given a dose of Kayexalate. Her spironolactone and supplemental potassium have been discontin ued. A repeat potassium level has been ordered for later this afternoon. (2) Acute diastolic (congestive) heart failure Assessment & Plan: She does have a history of diastolic failure. Her BNP is elevated and her pleural effusion does appear to have increased. She received a dose of IV Lasix in the emergency department. An echocardiogram has been ord ered. (3) Pleural effusion Status: Chronic Assessment & Plan: She does have a large right sided pleural effusion, which has persisted despite increases in her diuretic dosing. She has previously indicated that she would not want to pursue thoracentesis. However, this may be required for both therapeutic and diagnostic purposes. (4) Valvular heart disease Status: Chronic Assessment & Plan: A previous echocardiogram severe aortic stenosis and moderate to severe mitral regurgitation. 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 She was evaluated by cardiothoracic surgery and it was felt that surgery would be of more risk than benefit. (5) Atrial fibrillation Status: Chronic Assessment & Plan: She is on chronic treatment with metoprolol and aspirin. (6) Gout Status: Chronic Assessment & Plan: She is on chronic treatment with allopurinol. (7) Hypothyroid Status: Chronic Assessment & Plan: She is on chronic treatment with Synthroid. A TSH was normal in January. Copies to: FRANCI PORTER MD ; Venous Thromboembolism Antithrombotics Is Pt On Any Antithrombotics?: No Exam Sepsis Risk: No Definite Risk FRANCI PETERS DO Mar 23, 2018 12:18
[2018-03-23] MEDS: GABAPENTIN 100 MG CAP PO SCH ×2 (14:38→20:36)
[2018-03-23 17:03] VITALS: BP 103/53
[2018-03-23 19:48] VITALS: BP 113/42
[2018-03-23] MEDS: CARVEDILOL 3.125 MG TAB PO SCH (20:36)
[2018-03-23 23:25] VITALS: BP 109/54
[2018-03-24 03:54] VITALS: BP 105/39
[2018-03-24] MEDS: LEVOTHYROXINE SOD 0.088 MG TAB PO SCH (05:12)
--- NOTE | 2018-03-24 06:08 | RADIOLOGY IMAGING REPORT ---
FACILITY: [facility] - [place] PATIENT NAME: Brielle Campbell : 1930 MR: [id number] V: [id number] EXAM DATE: ORDERING PHYSICIAN: FRANCI PETERS TECHNOLOGIST: Location: [facility] [place] Patient: Brielle Campbell : 1930 Visit/Account:[id number] Date of Sevice: 03/24/2018 CHEST SINGLE AP 03/24/2018 06:00 hours. HISTORY: Pleural effusion. Follow-up. COMPARISON: 03/23/2018 and studies dating to 03/10/2009. TECHNIQUE: Portable AP view of the chest. FINDINGS: Tubes/lines/hardware: There are external chest leads. Pulmonary/pleura: Interval worsening opacification of the right hemithorax due to large right pleural effusion and adjacent airspace opacity. Only tiny residual amount of right upper lung field remains aerated. No change in aeration of the left lung. No pneumothorax. Cardiomediastinal: Partially obscured due to opacification of right hemithorax. No appreciable change . There is mild aortic calcification. Bones/soft tissues: No acute osseous abnormality. The visible abdomen is normal. IMPRESSION: 1. Opacification of the right hemithorax, likely due to enlarging pleural effusion and worsening airs pace opacity. 2. No change in aeration of the left lung. Report Dictated By: Claudia Naidu at 03/24/2018 6:01 AM Report E-Signed By: Claudia Naidu at 03/24/2018 6:04 AM WSN:[id number]
[2018-03-24 06:49] LABS: PLATELET COUNT, AUTOMATED 117 K/uL (150-450)
[2018-03-24 06:57] VITALS: BP 116/42
[2018-03-24] MEDS: POLYETHYLENE GLYCOL 17 GM PKT PO SCH ×2 (08:36→08:43)
[2018-03-24] MEDS: CARVEDILOL 3.125 MG TAB PO SCH ×2 (08:36→20:53)
[2018-03-24] MEDS: ALLOPURINOL 300 MG TAB PO SCH (08:36)
[2018-03-24] MEDS: DOCUSATE SODIUM 100 MG CAP PO SCH (08:36)
[2018-03-24] MEDS: GABAPENTIN 100 MG CAP PO SCH ×3 (08:36→20:53)
[2018-03-24] MEDS ORDERED: NS(*) 0.9% 1000 ML BAG 1,000 ML IV PRN (09:50)
--- NOTE | 2018-03-24 10:38 | Hospitalist Progress Note ---
Subjective Progress Notes Subjective She reports persistent dyspnea. Physical Exam Vital Signs Date Time Temp Pulse Resp B/P (MAP) Pulse Ox O2 Delivery O2 Flow Rate FiO2 03/24/18 07:52 85 03/24/18 07:28 90 Nasal Cannula 2.5 03/24/18 06:57 97.4 11 116/42 (66) Intake and Output 03/24/18 07:00 Intake Total 520 ml Output Total 1530 ml Balance -1010 ml Intake Oral 520 ml Output Urine Total 1530 ml # Bowel Movements 13 General Appearance: Alert, Awake Cardiovascular: Other (Irregular distant tones with sysytolic murmur) Respiratory: Other (essentially absent breath sounds) Chest: No Tenderness GI: Soft and Non-Tender Extremities: Warm, Perfused Psych: Alert & Oriented X3 Result Diagram: 03/24/1860303/24/18603 Assessment and Plan Problems: (1) Hyperkalemia Status: Acute Assessment & Plan: Improved. She did present with an elevated potassium level. She has been treated with a dose of IV insulin and D50. She was also given a dose of Kayexalate. Her spironolactone and supplemental potassium have been discontinued. Watch labs. (2) Acute diastolic (congestive) heart failure Assessment & Plan: She does have a history of diastolic failure. Her BNP is elevated and her pleural effusion has increased. She received a dose of IV Lasix in the emergency department. An echocardiogram has been ordered (pending). We discussed right thoracentesis for diagnosis and treatment. She is now willing to have the thoracentesis done. (3) Pleural effusion Status: Chronic Assessment & Plan: She does have a large right sided pleural effusion, which has persisted despite increases in her diuretic dosing. She has previously indicated that she would not want to pursue thoracentesis. However, it appears this may be required for both therapeutic and diagnostic purposes. We discussed the procedure and she is now willing to have the thoracentesis done. (4) Valvular heart disease Status: Chronic Assessment & Plan: A previous echocardiogram showed severe aortic stenosis and moderate to severe mitral regurgitation. 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 She was evaluated by cardiothoracic surgery and it was felt that surgery would be of more risk than benefit. (5) Atrial fibrillation Status: Chronic Assessment & Plan: She is on chronic treatment with metoprolol and aspirin. (6) Gout Status: Chronic Assessment & Plan: She is on chronic treatment with allopurinol. (7) Hypothyroid Status: Chronic Assessment & Plan: She is on chronic treatment with Synthroid. Check of her TSH was normal in January. Exam Sepsis Risk: No Definite Risk MARLEE JOHNSON MD Mar 24, 2018 10:38
--- NOTE | 2018-03-24 10:44 | Procedure Note ---
Thoracentesis Procedure Note Reason for Thoracentesis: Pleural Effusion Consent Signed: Yes Thoracentesis Location: Right Lung U/S Guided Thoracentesis: Yes Blood Loss: Minimal Complications: No acute problems noted Anesthesia Used: Other (2% lidocaine) CC's of Anesthesia: 2 Amount of Fluid: 1900 Fluid Characteristics: Serosanguinous Post Procedure Xray Ordered: Yes Lab Analysis Ordered: Yes MARLEE JOHNSON MD Mar 24, 2018 10:44
--- NOTE | 2018-03-24 11:06 | Medical Nutrition Therapy ---
Nutrition Anthropometrics Height (Inches): 59.00 Height (Calculated Centimeters: 149.368288 Weight (Pounds): 175 Weight (Calculated Kilograms): 79.379 BMI: 35.3 Cullen Nutrition Score: Adequate Cullen Nutrition Risk Score: 19 Dietary Referral Nutrition Risk Factors: Nutrition Risk Comment: Physical Findings Physical Appearance: Obese BMI 30-39 Skin Appearance Skin Appearance: Edema Edema Location Modifier: Both Edema Location: [place] Type of Edema: Degree of Edema: Gastrointestinal Symptoms GI Symtoms: Diarrhea Tube Present: Bowel Sounds: Recent Bowel Pattern: Stool Characteristics: Nutritional Diagnosis Nutritional Risk Acuity 2: CHF w/Complication Past Medical History: CHF, renal failure, ARF, DM II, Gout, hypothyroid, hypokalemia, HTN Nutritional Acuity: 2-Moderate Nutrition Diagnosis: Decreased Nutrient Needs Nutrition Etiology: Physiological Causes Nutrition Problem/Etiology/Sym: Decreased Na and fluid needs r/t dx CHF AEB BNP 1979 Adjusted Energy Requirement Re: 1300 (HB adj for obestiy) Protein Requirement: 63 Fluid Requirement: 1975 (25ml/kg) Diet Type: Diet as Tolerated MARIO/REG Nutrition Intervention: Change diet (recommend CHF diet) Nutrition Monitoring & Eval Nutrition Goals: Eat 75-100% Meal RD Assessment Type: RD Assessment Patient Nutrition Acuity: 2-Moderate Follow Up Date: Mar 27, 2018 Nutritional Comment: 03/24 Pt admitted with hyperkalemia resolved with curretn K-4.5 and CHF. BNP 1979. . BUN/creatinine elevated at 45/1.4. Alb 4.1. Pt has dx T2DM with BG within acceptable range of 66-150. Pt on regualr diet and ate 100%. Recommend change to CHF diet. Will cont to monitor and encouage intake. HEIDI CALABRESE Mar 24, 2018 11:06
--- NOTE | 2018-03-24 11:08 | RADIOLOGY IMAGING REPORT ---
[facility] PATIENT NAME: Brielle Campbell : 1930 MR: [id number] V: [id number] EXAM DATE: ORDERING PHYSICIAN: MUKUND JOHNSON TECHNOLOGIST: Location: [facility] - [place] Patient: Brielle Campbell : 1930 Visit/Account:[id number] Date of Sevice: 03/24/2018 Exam type: US GUIDANCE FOR THORA/PARA History: right pleural effusion (for thoracentesis) Comparison: Single view chest performed earlier today at 6:00 AM. Findings: Single sonographic image labeled right pleural effusion demonstrates a large right pleural effusion. The patient's skin was marked in the location of this effusion for thoracentesis to be performed by Dr. Mukund Johnson IMPRESSION: 1. As above Report Dictated By: Johanne Minor MD at 03/24/2018 11:02 AM Report E-Signed By: Johanne Minor MD at 03/24/2018 11:03 AM WSN:[email or web address]
--- NOTE | 2018-03-24 11:11 | Miscellaneous Provider Note ---
Miscellaneous Provider Note Note Post-thoracentesis chest x-ray shows right lateral and medial pneumothorax. Patient is symptomatically improved following her thoracentesis. No current chest pain or dyspnea. The pleural effusion has been a long-standing problem (present since at least 08/2017). 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 It is possible she may need chest tube placement. MARLEE JOHNSON MD Mar 24, 2018 11:11
[2018-03-24 11:13] VITALS: BP 122/43
--- NOTE | 2018-03-24 11:22 | RADIOLOGY IMAGING REPORT ---
FACILITY: [facility] - [place] PATIENT NAME: Brielle Campbell : 1930 MR: [id number] V: [id number] EXAM DATE: ORDERING PHYSICIAN: MARLEE JOHNSON TECHNOLOGIST: [facility] Patient: Brielle Campbell : 1930 Visit/Account:[id number] Date of Sevice: 03/24/2018 Exam type: CHEST SINGLE AP History: post-thoracentesis Comparison: Degenerative 2017. Findings: There is been development of an approximate 40-50% right basilar pneumothorax. There is no mediastin al shift. There is partial improvement of the right-sided airspace consolidation.. . There is been a marked reduction of the right pleural effusion. Peribronchial thickening in the left mid and lower lung field again noted. The cardiac silhouette appears stable IMPRESSION: 1. Interval development of an approximate 40-50% right basilar pneumothorax however there is been a marked reduction in the size of the right pleural effusion and partial improvement of the right airsp beverly consolidation Results were called to MARLEE JOHNSON at 03/24/2018 11:07 AM. Report Dictated By: Johanne Minor MD at 03/24/2018 11:03 AM Report E-Signed By: Johanne Minor MD at 03/24/2018 11:18 AM WSN:[email or web address]
[2018-03-24] MEDS: traMADol 50 MG TAB PO PRN (11:36)
[2018-03-24] MEDS: NYSTATIN 100,000 U/GM PWD 15GM TP SCH ×2 (11:37→20:54)
--- NOTE | 2018-03-24 12:06 | RADIOLOGY IMAGING REPORT ---
FACILITY: [facility] - [place] PATIENT NAME: Brielle Campbell : 1930 MR: [id number] V: [id number] EXAM DATE: ORDERING PHYSICIAN: MARLEE JOHNSON TECHNOLOGIST: Location: [facility] Patient: Brielle Campbell : 1930 Visit/Account:[id number] Date of Sevice: 03/24/2018 Exam type: CHEST SINGLE AP History: PNTX Comparison: AP chest performed earlier in the day at 10:28 AM. Findings: The 40-50% right basilar pneumothorax appears relatively unchanged. Residual right-sided airspace co nsolidation remains unchanged. Peribronchial thickening in the left lung also unchanged and the card iac silhouette remains stable IMPRESSION: 1. 40-50 % right basilar pneumothorax appears relatively unchanged Report Dictated By: Johanne Minor MD at 03/24/2018 12:01 PM Report E-Signed By: Johanne Minor MD at 03/24/2018 12:03 PM WSN:[email or web address]
[2018-03-24 14:35] VITALS: BP 125/43
[2018-03-24 19:28] VITALS: BP 147/56
[2018-03-24 22:34] VITALS: BP 118/37
[2018-03-25] MEDS: traMADol 50 MG TAB PO PRN ×3 (02:54→18:55)
[2018-03-25 02:56] VITALS: BP 135/42
[2018-03-25] MEDS: LEVOTHYROXINE SOD 0.088 MG TAB PO SCH (05:34)
[2018-03-25 05:53] LABS: PLATELET COUNT, AUTOMATED 125 K/uL (150-450)
[2018-03-25 06:34] VITALS: BP 132/45
--- NOTE | 2018-03-25 06:39 | RADIOLOGY IMAGING REPORT ---
FACILITY: [facility] PATIENT NAME: Brielle Campbell : 1930 MR: [id number] V: [id number] EXAM DATE: ORDERING PHYSICIAN: MARLEE JOHNSON TECHNOLOGIST: Location: [facility] [place] Patient: Brielle Campbell : 1930 Visit/Account:[id number] Date of Sevice: 03/25/2018 CHEST SINGLE AP 03/25/2018 05:00 hours. HISTORY: Pleural effusion. Pneumothorax. COMPARISON: 03/24/2018 and studies dating to 03/10/2009. TECHNIQUE: Portable AP view of the chest. FINDINGS: Tubes/lines/hardware: There are external chest leads. Pulmonary/pleura: Small right lateral pneumothorax has decreased in size. Small right pleural effusio n is stable to mildly increased in size. There is worsening right basilar opacity. Stable left basila r opacity. Cardiomediastinal: Cardiac and mediastinal silhouettes are within normal limits. There is mild aortic calcification. Bones/soft tissues: No acute osseous abnormality. The visible abdomen is normal. IMPRESSION: 1. Decrease in size of the right pneumothorax. 2. Small right pleural effusion is stable to mildly increased. 3. Worsening right basilar opacity may be a combination of pulmonary edema and atelectasis. 4. Stable left lung. Report Dictated By: Claudia Naidu at 03/25/2018 6:33 AM Report E-Signed By: Claudia Naidu at 03/25/2018 6:36 AM WSN:[id number]
[2018-03-25] MEDS: POLYETHYLENE GLYCOL 17 GM PKT PO SCH (08:33)
[2018-03-25] MEDS: NYSTATIN 100,000 U/GM PWD 15GM TP SCH ×2 (08:33→20:15)
[2018-03-25] MEDS: CARVEDILOL 3.125 MG TAB PO SCH ×2 (08:33→20:15)
[2018-03-25] MEDS: DOCUSATE SODIUM 100 MG CAP PO SCH (08:33)
[2018-03-25] MEDS: GABAPENTIN 100 MG CAP PO SCH ×3 (08:33→20:15)
[2018-03-25] MEDS: ALLOPURINOL 300 MG TAB PO SCH (08:33)
[2018-03-25] MEDS: SPIRONOLACTONE 25 MG TAB PO SCH (10:07)
[2018-03-25] MEDS: BUMETANIDE 2 MG TAB PO SCH (10:07)
[2018-03-25 10:52] VITALS: BP 133/47
[2018-03-25] MEDS ORDERED: INFLUENZA VIRUS VAC 0.5ML SYR IM ONLY ONE (11:30)
--- NOTE | 2018-03-25 13:56 | NUR ---
Physical Therapy Impression PT eval complete. Pt at baseline functional mobility and is safe for DC when medically appropriate. Physical Therapy Goals Patient's Goals
[2018-03-25 15:16] VITALS: BP 83/65
--- NOTE | 2018-03-25 15:23 | Hospitalist Progress Note ---
Subjective Progress Notes Subjective She reports less SOB since the thoracentesis. Physical Exam Vital Signs Date Time Temp Pulse Resp B/P (MAP) Pulse Ox O2 Delivery O2 Flow Rate FiO2 03/25/18 10:52 97.0 86 18 133/47 (75) 97 Nasal Cannula 2.0 Intake and Output 03/25/18 07:00 Intake Total 582 ml Output Total 1350 ml Balance -768 ml Intake Oral 582 ml Output Urine Total 1350 ml General Appearance: Alert, Awake, No Acute Distress Cardiovascular: Other (irregular, irregular, no m/r/g) Respiratory: Clear to Auscultation (Decreased BS in bases bilaterally) Result Diagram: 03/25/1852403/25/18524 Assessment and Plan Problems: (1) Hyperkalemia Status: Acute Assessment & Plan: Secondary to ARF and exacerbated by potassium supplements and spironolactone. She was treated with a dose of IV insulin and D50. She was also given a dose of Kayexalate. Her spironolactone and supplemental potassium were discontinued. Potassium is now wnl. Continue to follow. (2) Acute renal failure Status: Acute Assessment & Plan: Secondary to overdiuresis. See above. Creatinine near baseline after hydration. Now saline locked. (3) Acute diastolic (congestive) heart failure Assessment & Plan: She does have a history of diastolic failure. Her BNP was elevated and her pleural effusion had increased despite aggressive diuretic regimen. She had a therapeutic thoracentesis draining about 1900cc of ser osanguineous fluid. She has much less SOB after the procedure. Will restart Bumex at her home does and spironolactone at half dose. Follow BMP. (4) Pleural effusion Status: Chronic Assessment & Plan: She does have a large right sided pleural effusion, which had persisted despite increases in her diuretic dosing. Thoracentesis done on 03/24 with a complication that the lung didn't fully reexpand, so has a pneumothorax appearing CXR. Dr. Ceja spoke with Dr. Ward and the plan is to follow CXR for now. The patient feels improved after the procedure. (5) Valvular heart disease Status: Chronic Assessment & Plan: A previous echocardiogram showed severe aortic stenosis and moderate to severe mitral regurgitation. 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 She was evaluated by cardiothoracic surgery and it was felt that surgery would be of more risk than benefit. Echo this visit showed an EF of 65-70%, normal LV size, severe AI, no , mild to mod ND, RVSP is 50-55. (6) Atrial fibrillation Status: Chronic Assessment & Plan: She is on chronic treatment with Coreg and aspirin. (7) Gout Status: Chronic Assessment & Plan: She is on chronic treatment with allopurinol. (8) Hypothyroid Status: Chronic Assessment & Plan: She is on chronic treatment with Synthroid. Check of her TSH was normal in January. Exam Sepsis Risk: No Definite Risk DAVID LIU MD Mar 25, 2018 15:23
[2018-03-25 18:40] VITALS: BP 157/52
[2018-03-26 02:54] VITALS: BP 132/46
[2018-03-26] MEDS: LEVOTHYROXINE SOD 0.088 MG TAB PO SCH (05:28)
[2018-03-26 06:02] LABS: PLATELET COUNT, AUTOMATED 134 K/uL (150-450)
--- NOTE | 2018-03-26 06:32 | RADIOLOGY IMAGING REPORT ---
FACILITY: [facility] - [place] PATIENT NAME: Brielle Campbell : 1930 MR: [id number] V: [id number] EXAM DATE: ORDERING PHYSICIAN: DAVID LIU TECHNOLOGIST: Location: [facility] - [place] Patient: Brielle Campbell : 1930 Visit/Account:[id number] Date of Sevice: 03/26/2018 CHEST SINGLE AP 03/26/2018 07:00 hours. HISTORY: Pneumothorax. Follow-up. COMPARISON: 03/25/2017 and studies dating to 03/10/2009. TECHNIQUE: Portable AP view of the chest. FINDINGS: Tubes/lines/hardware: None. Pulmonary/pleura: Right pneumothorax is no longer identified. There is a small right pleural effusion . There is a skin fold projecting at the left chest. No change in aeration of the lungs. Cardiomediastinal: Cardiac and mediastinal silhouettes are within normal limits. There is mild aortic calcification. Bones/soft tissues: No acute osseous abnormality. The visible abdomen is normal. IMPRESSION: 1. Resolution of the small right pneumothorax. 2. Stable small right pleural effusion. 3. No change in aeration of the lungs. Report Dictated By: Claudia Naidu at 03/26/2018 6:22 AM Report E-Signed By: Claudia Naidu at 03/26/2018 6:27 AM WSN:[id number]
[2018-03-26 07:27] VITALS: BP 135/58
[2018-03-26] MEDS: DOCUSATE SODIUM 100 MG CAP PO SCH (08:36)
[2018-03-26] MEDS: GABAPENTIN 100 MG CAP PO SCH (08:37)
[2018-03-26] MEDS: ALLOPURINOL 300 MG TAB PO SCH (08:37)
[2018-03-26] MEDS: SPIRONOLACTONE 25 MG TAB PO SCH (08:37)
[2018-03-26] MEDS: POLYETHYLENE GLYCOL 17 GM PKT PO SCH (08:37)
[2018-03-26] MEDS: BUMETANIDE 2 MG TAB PO SCH (08:37)
[2018-03-26] MEDS: NYSTATIN 100,000 U/GM PWD 15GM TP SCH (08:37)
[2018-03-26] MEDS: CARVEDILOL 3.125 MG TAB PO SCH (08:37)
--- NOTE | 2018-03-26 10:20 | Hospitalist Depart ---
Discharge Summary Reason for Hosp/Final Diag: (1) Hyperkalemia Status: Acute Hospital Course & Plan: Secondary to ARF and exacerbated by potassium supplements and spironolactone. She was treated with a dose of IV insulin and D50. She was also given a dose of Kayexalate. Her spironolactone and supplemental potassium were discontinued upon admission. Potassium is now wnl. (2) Acute renal failure Status: Acute Hospital Course & Plan: Secondary to overdiuresis. See above. Creatinine near baseline after hydration. (3) Acute diastolic (congestive) heart failure Hospital Course & Plan: She does have a history of diastolic failure. Her BNP was elevated and her pleural effusion had increased despite aggressive diuretic regimen. She had a therapeutic thoracentesis draining about 1900cc of serosang uineous fluid. She has much less SOB after the procedure. She was restarted on Bumex at her home does and spironolactone at half dose. (4) Pleural effusion Status: Chronic Hospital Course & Plan: She does have a large right sided pleural effusion, which had persisted despite increases in her diuretic dosing. Thoracentesis done on 03/24 with a complication that the lung didn't fully reexpand, so she had a pneumothorax appearing on CXR. Dr. Ceja spoke with Dr. Ward and the plan was to follow CXR. The pneumothorax is resolved on CXR this morning. The patient feels improved after the procedure. (5) Valvular heart disease Status: Chronic Hospital Course & Plan: A previous echocardiogram showed severe aortic stenosis and moderate to severe mitral regurgitation. 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 She was evaluated by cardiothoracic surgery and it was felt that surgery would be of more risk than benefit. Echo this visit showed an EF of 65-70%, normal LV size, severe AI, no , mild to mod [place], RVSP is 50-55. (6) Atrial fibrillation Status: Chronic Hospital Course & Plan: She is on chronic treatment with Coreg and aspirin. (7) Gout Status: Chronic Hospital Course & Plan: She is on chronic treatment with allopurinol. (8) Hypothyroid Status: Chronic Hospital Course & Plan: She is on chronic treatment with Synthroid. Check of her TSH was normal in January. Departure Latest Vital Signs Vital Signs 03/26/18 03/26/18 07:27 07:31 Temp 98.0 Pulse 94 Resp 18 B/P (MAP) 135/58 (83) Pulse Ox 92 O2 Delivery Nasal Cannula O2 Flow Rate 2.0 Weight (Pounds): 164 Weight (Ounces): 8.0 Result Diagram: 03/26/1853503/26/18535 Condition: Improved Discharge: Home, Self Care Discharge Instructions Home Meds Active Scripts Bumetanide (BUMETANIDE) 0.5 Mg Tablet, 0.5 MG PO DAILY, #30 Prov:DAVID LIU MD 02/08/18 Reported Medications Spironolactone (SPIRONOLACTONE) 25 Mg Tablet, 12.5 MG PO QDAY, TAB 03/23/18 Acetaminophen (TYLENOL EXTRA STRENGTH) 500 Mg Tablet, 500 MG PO 2-4XD PRN for pain, TAB 02/06/18 Docusate Sodium (COLACE) 100 Mg Capsule, 100 MG PO QDAY, CAPSULE 02/06/18 Polyethylene Glycol 3350 (MIRALAX) 17 Gm Powd.pack, 17 GM PO QDAY, PKT 02/06/18 Gabapentin (GABAPENTIN) 100 Mg Capsule, 100 MG PO TID, CAPSULE 09/03/17 Levothyroxine Sodium (LEVOTHYROXINE SODIUM) 88 Mcg Tablet, 88 MCG PO QDAY 09/03/17 Carvedilol (CARVEDILOL) 3.125 Mg Tab, 3.125 MG PO BID, TAB 08/26/17 Tramadol Hcl (TRAMADOL HCL) 50 Mg Tablet, 2 TAB PO Q4-6H PRN for PAIN, TAB 02/18/16 Aspirin (ASPIRIN) 81 Mg Tablet.dr, 81 MG PO 11/28/11 Allopurinol (Zyloprim) 300 Mg Tab, 300 MG PO QDAY, 0 Refills 04/14/09 Discontinued Reported Medications Metolazone (METOLAZONE) 5 Mg Tablet, 5 MG PO QDAY 03/23/18 Potassium Chloride (POTASSIUM CHLORIDE) 10 Meq Capsule.er, 10 MEQ PO QID 03/23/18 Discontinued Scripts Potassium Chloride (POTASSIUM CHLORIDE) 20 Meq Tab.er.prt, 1 TAB PO DAILY for 30 Days, Prov:DAVID LIU MD 02/08/18 Diet: Fluid Restricted Activity: As Tolerated Special Instructions: Follow up with Dr. Porter as scheduled. Stop Potassium supplements. Decrease Spironoloactone dose. Copies to: FRANCI PORTER MD ; Venous Thromboembolism Antithrombotics Is Pt On Any Antithrombotics?: No DUY TOURE Mar 26, 2018 10:20
== END 2018-03-26 10:40 | disposition home or self-care (01) | DRG 640 ==
LOC: ER 08:55 → MED 09:44
PROVIDERS: ADMIT Family Medicine; ATTEND Family Medicine
PROC: 0W993ZX Drainage of Right Pleural Cavity, Percutaneous Approach, Diagnostic (ICD-10-PCS; principal; 2018-03-24)
DX: E87.5 Hyperkalemia (principal); I50.33 Acute on chronic diastolic (congestive) heart failure; I38 Endocarditis, valve unspecified; J93.81 Chronic pneumothorax; N17.9 Acute kidney failure, unspecified; I11.0 Hypertensive heart disease with heart failure; M1A.9XX0 Chronic gout, unspecified, without tophus (tophi); E03.9 Hypothyroidism, unspecified; I48.2 Chronic atrial fibrillation; T50.2X5A Adverse effect of carbonic-anhydrase inhibitors, benzothiadiazides and other diuretics, initial encounter; Y92.230 Patient room in hospital as the place of occurrence of the external cause; Z90.49 Acquired absence of other specified parts of digestive tract; Z90.710 Acquired absence of both cervix and uterus
CPT/HCPCS: 36415; 71045; 81001; 82040; 82247; 82310; 82374; 82435; 82565; 82803; 82945; 82947; 83880; 83986; 84075; 84132; 84155; 84157; 84295; 84450; 84460; 84484; 84520; 85025; 87071; 87116; 87205; 88305; 89050; 93005; 93306; 96365; 96375; 97161; 97165; 99284; J0610; J1815; J1940; J7030; J7050

== ENCOUNTER → 2018-03-23 | Outpatient (CLI) | payer MEDICARE ==
[2018-02-07 20:02] VITALS: BMI 29.1
[~2018-03-23] MED LIST changes: +SPIR25TA80 PO
== END ==
LOC: AMB 08:32
PROVIDERS: ATTEND Nurse Practitioner
DX: R60.0 Localized edema (principal); R53.83 Other fatigue; I50.9 Heart failure, unspecified
CPT/HCPCS: A0425; A0427

== ENCOUNTER 2018-03-25 08:30 | Outpatient (RCR) | payer MEDICARE ==
[2018-02-07 20:02] VITALS: BMI 29.1
[~2018-03-25 08:30] MED LIST changes: +SPIR25TA80 PO
--- NOTE | 2018-03-28 12:41 | Transitional Care Management ---
TCM Discharge Criteria Transitional Care Comment: 03/24 Has had CHF for years. Keeps daily log of wt, bp, pulse. Has been seeing PCP for closer management but, had increased wt and confusion over the we and was admit. Thoracentesis at bedside; pt is tired and will visit later. 03/27 and 03/28 Unable to contact left message, SHEILA EDWARDS Mar 28, 2018 12:41
--- NOTE | 2018-03-30 11:17 | Transitional Care Management ---
TCM Discharge Criteria Transitional Care Comment: 03/24 Has had CHF for years. Keeps daily log of wt, bp, pulse. Has been seeing PCP for closer management but, had increased wt and confusion over the we and was admit. Thoracentesis at bedside; pt is tired and will visit later. 03/27 and 03/28 Unable to contact left message, 03/30 daughter called over weekend and left message saying that Brielle was doing well, has a f/u for 04/[address] Smith. Attempted to call again, no answer, left message MAYWENDIE Mar 30, 2018 11:17
--- NOTE | 2018-04-03 10:42 | Transitional Care Management ---
TCM Discharge Criteria Transitional Care Comment: 03/24 Has had CHF for years. Keeps daily log of wt, bp, pulse. Has been seeing PCP for closer management but, had increased wt and confusion over the we and was admit. Thoracentesis at bedside; pt is tired and will visit later. 03/27 and 03/28 Unable to contact left message, 03/30 daughter called over weekend and left message saying that Brielle was doing well, has a f/u for 04/[address] Smith. Attempted to call again, no answer, left message 04/03 no answer, left message to call if she has any questions, will DC from program MAY,WENDIE Vila Apr 03, 2018 10:42
== END 2018-04-06 12:48 | disposition home or self-care (01) ==
LOC: TCM 08:30
PROVIDERS: ATTEND Nurse Practitioner
DX: Z02.9 Encounter for administrative examinations, unspecified (principal)

== ENCOUNTER 2018-05-03 10:04 | Inpatient (IN) | payer MEDICARE ==
[~2018-05-03] VITALS: Ht 149.9 cm; Wt 80.4 kg
--- NOTE | 2018-05-03 09:59 | ER Report ---
History and Physical Time Seen By : 09:59 HPI/ROS CHIEF COMPLAINT: Fall HISTORY OF PRESENT ILLNESS:Patient is a 87-year-old female who is brought to the emergency department after a fall complaining of right shoulder pain. Patient has a history of pleural effusion and peripheral edema history of heart failure. She has been being closely followed by her primary care provider who increased some of her diuretics over the past few days. Following her weights and because they were slightly increasing her primary care provider instructed her to double the bumetanide and increase his spironolactone to 3 tablets and follow daily weights. Patient was on the scale when she became dizzy and fell. She is complaining of right shoulder pain and mild headache. She denies neck pain. She denies any chest pain or abdominal pain. She denies lower extremity pain. REVIEW OF SYSTEMS: Constitutional: No fever, no chills. Positive weight gain Eyes: No discharge. ENT: No sore throat. Cardiovascular: No chest pain, no palpitations. Respiratory: No cough, no shortness of breath. Gastrointestinal: No abdominal pain, no vomiting. Genitourinary: No hematuria. Musculoskeletal: No back pain. Right shoulder pain Skin: No rashes. Neurological: No headache. Allergies: Coded Allergies: No Known Drug Allergies (Verified , 03/23/18) Home Meds Active Scripts Bumetanide (BUMETANIDE) 0.5 Mg Tablet, 0.5 MG PO DAILY, #30 Prov:DAVID LIU MD 02/08/18 Reported Medications Spironolactone (SPIRONOLACTONE) 25 Mg Tablet, 12.5 MG PO QDAY, TAB 03/23/18 Acetaminophen (TYLENOL EXTRA STRENGTH) 500 Mg Tablet, 500 MG PO 2-4XD PRN for pain, TAB 02/06/18 Docusate Sodium (COLACE) 100 Mg Capsule, 100 MG PO QDAY, CAPSULE 02/06/18 Polyethylene Glycol 3350 (MIRALAX) 17 Gm Powd.pack, 17 GM PO QDAY, PKT 02/06/18 Gabapentin (GABAPENTIN) 100 Mg Capsule, 100 MG PO TID, CAPSULE 09/03/17 Levothyroxine Sodium (LEVOTHYROXINE SODIUM) 88 Mcg Tablet, 88 MCG PO QDAY 09/03/17 Carvedilol (CARVEDILOL) 3.125 Mg Tab, 3.125 MG PO BID, TAB 08/26/17 Tramadol Hcl (TRAMADOL HCL) 50 Mg Tablet, 2 TAB PO Q4-6H PRN for PAIN, TAB 02/18/16 Aspirin (ASPIRIN) 81 Mg Tablet.dr, 81 MG PO 11/28/11 Allopurinol (Zyloprim) 300 Mg Tab, 300 MG PO QDAY, 0 Refills 04/14/09 Past Medical/Surgical History History of pleural effusion, hypertension, atrial fibrillation, gout, hypothyroidism, heart failure, history of cholecystectomy, history of hysterectomy, history of total knee replacement Hx Smoking: No Smoking Status: Never Smoker Hx Substance Use Disorder: No Hx Alcohol Use: No Constitutional Vital Sign - Last 24 Hours 05/03/18 05/03/18 05/03/18 05/03/18 10:08 10:25 11:30 12:00 Temp 97.3 Pulse 69 72 72 Resp 20 B/P (MAP) 147/54 142/52 (82) Pulse Ox 90 88 O2 Delivery Oxy Mask O2 Flow Rate 5.0 05/03/18 12:30 Pulse 75 B/P (MAP) 147/81 (103) Physical Exam General/Constitutional: Patient is awake, alert, nontoxic and in no acute respiratory distress. Head: Normocephalic and atraumatic. Eyes: Conjunctival clear, Pupils are equal and reactive to light. Extraocular muscles are intact and symmetrical. Sclera are clear and anicteric. Ears:External canals are clear. Tympanic membranes are clear with normal landmarks and light reflex. Nares: No rhinorrhea or bleeding. Turbinates are pink and moist. Oropharyngeal: Mucous membranes are moist. There is no pharyngeal erythema or exudate. There are no palatal petechiae. Uvula is midline and symmetrical. Neck: In cervical collar Cardiovascular: Heart is regular rate and rhythm without audible murmurs, rubs or gallops. Pulmonary: Lungs are clear to auscultation bilaterally. There are no wheezes, rales, or rhonchi. Chest rise is symmetrical Abdomen: Soft, nontender, no guarding or peritoneal signs. Extremities: No gross deformities, No peripheral cyanosis. Pain over proximal right shoulder area; peripheral edema Neuro: Alert and oriented X3, Skin: No rashes, skin is warm dry and well perfused. Medical Decision Making Data Points Result Diagram: 05/03/18 1032 05/03/18 1032 Laboratory Hematology Test 05/03/18 10:32 05/03/18 11:18 Red Blood Count 4.00 M/uL (4.17-5.56) Mean Corpuscular Volume 82.3 fL (80.0-96.0) Mean Corpuscular Hemoglobin 25.7 pg (26.0-33.0) Mean Corpuscular Hemoglobin Concent 31.3 g/dL (32.0-36.0) Red Cell Distribution Width 20.7 % (11.5-14.5) Mean Platelet Volume 8.4 fL (7.2-11.1) Neutrophils (%) (Auto) 77.9 % (39.4-72.5) Lymphocytes (%) (Auto) 12.1 % (17.6-49.6) Monocytes (%) (Auto) 9.3 % (4.1-12.4) Eosinophils (%) (Auto) 0.3 % (0.4-6.7) Basophils (%) (Auto) 0.4 % (0.3-1.4) Nucleated RBC Relative Count (auto) 0.2 /100WBC Neutrophils # (Auto) 6.2 K/uL (2.0-7.4) Lymphocytes # (Auto) 1.0 K/uL (1.3-3.6) Monocytes # (Auto) 0.7 K/uL (0.3-1.0) Eosinophils # (Auto) 0.0 K/uL (0.0-0.5) Basophils # (Auto) 0.0 K/uL (0.0-0.1) Nucleated RBC Absolute Count (auto) 0.02 K/uL Prothrombin Time 28.2 seconds (12.0-14.4) Prothromb Time International Ratio 2.58 Activated Partial Thromboplast Time 42 seconds (23-35) Sodium Level 138 mmol/L (137-145) Potassium Level 5.5 mmol/L (3.5-5.0) Chloride Level 100 mmol/L (98-107) Carbon Dioxide Level 25 mmol/L (22-31) Blood Urea Nitrogen 48 mg/dl (7-18) Creatinine 3.10 mg/dl (0.52-1.04) Glomerular Filtration Rate Calc 14.2 Random Glucose 86 mg/dl (75-110) Calcium Level 8.2 mg/dl (8.4-10.2) Total Bilirubin 2.5 mg/dl (0.2-1.3) Aspartate Amino Transf (AST/SGOT) 103 U/L (0-35) Alanine Aminotransferase (ALT/SGPT) 48 U/L (0-56) Alkaline Phosphatase 124 U/L (0-126) Troponin I 0.543 ng/ml B-Type Natriuretic Peptide 1650 pg/ml (0-100) Total Protein 7.5 g/dl (6.3-8.2) Albumin 3.8 g/dl (3.5-5.0) Urine Color Yellow Urine Clarity Slightly-cloudy Urine pH 5.0 pH (4.8-9.5) Urine Specific Neeses 1.014 Urine Protein Negative mg/dL (NEGATIVE) Urine Glucose (UA) Negative mg/dL (NEGATIVE) Urine Ketones Negative mg/dL (NEGATIVE) Urine Blood Small (NEGATIVE) Urine Nitrite Negative (NEGATIVE) Urine Bilirubin Negative (NEGATIVE) Urine Urobilinogen 4.0 mg/dL (0.2-1.9) Urine Leukocyte Esterase Small (NEGATIVE) Urine RBC 10 /HPF (0-2/HPF) Urine WBC 34 /HPF (0-5/HPF) Urine Squamous Epithelial Cells Many /LPF (NONE-FEW) Urine Amorphous Crystals Few /HPF Urine Bacteria Many /HPF (NONE-FEW) Urine Hyaline Casts Many /LPF (NONE-FEW) Urine Mucus Few /HPF (NONE-FEW) Chemistry Test 05/03/18 10:32 05/03/18 11:18 White Blood Count 7.9 k/uL (4.5-11.0) Red Blood Count 4.00 M/uL (4.17-5.56) Hemoglobin 10.3 g/dL (12.0-16.0) Hematocrit 32.9 % (34.0-47.0) Mean Corpuscular Volume 82.3 fL (80.0-96.0) Mean Corpuscular Hemoglobin 25.7 pg (26.0-33.0) Mean Corpuscular Hemoglobin Concent 31.3 g/dL (32.0-36.0) Red Cell Distribution Width 20.7 % (11.5-14.5) Platelet Count 198 K/uL (150-450) Mean Platelet Volume 8.4 fL (7.2-11.1) Neutrophils (%) (Auto) 77.9 % (39.4-72.5) Lymphocytes (%) (Auto) 12.1 % (17.6-49.6) Monocytes (%) (Auto) 9.3 % (4.1-12.4) Eosinophils (%) (Auto) 0.3 % (0.4-6.7) Basophils (%) (Auto) 0.4 % (0.3-1.4) Nucleated RBC Relative Count (auto) 0.2 /100WBC Neutrophils # (Auto) 6.2 K/uL (2.0-7.4) Lymphocytes # (Auto) 1.0 K/uL (1.3-3.6) Monocytes # (Auto) 0.7 K/uL (0.3-1.0) Eosinophils # (Auto) 0.0 K/uL (0.0-0.5) Basophils # (Auto) 0.0 K/uL (0.0-0.1) Nucleated RBC Absolute Count (auto) 0.02 K/uL Prothrombin Time 28.2 seconds (12.0-14.4) Prothromb Time International Ratio 2.58 Activated Partial Thromboplast Time 42 seconds (23-35) Glomerular Filtration Rate Calc 14.2 Calcium Level 8.2 mg/dl (8.4-10.2) Total Bilirubin 2.5 mg/dl (0.2-1.3) Aspartate Amino Transf (AST/SGOT) 103 U/L (0-35) Alanine Aminotransferase (ALT/SGPT) 48 U/L (0-56) Alkaline Phosphatase 124 U/L (0-126) Troponin I 0.543 ng/ml B-Type Natriuretic Peptide 1650 pg/ml (0-100) Total Protein 7.5 g/dl (6.3-8.2) Albumin 3.8 g/dl (3.5-5.0) Urine Color Yellow Urine Clarity Slightly-cloudy Urine pH 5.0 pH (4.8-9.5) Urine Specific Neeses 1.014 Urine Protein Negative mg/dL (NEGATIVE) Urine Glucose (UA) Negative mg/dL (NEGATIVE) Urine Ketones Negative mg/dL (NEGATIVE) Urine Blood Small (NEGATIVE) Urine Nitrite Negative (NEGATIVE) Urine Bilirubin Negative (NEGATIVE) Urine Urobilinogen 4.0 mg/dL (0.2-1.9) Urine Leukocyte Esterase Small (NEGATIVE) Urine RBC 10 /HPF (0-2/HPF) Urine WBC 34 /HPF (0-5/HPF) Urine Squamous Epithelial Cells Many /LPF (NONE-FEW) Urine Amorphous Crystals Few /HPF Urine Bacteria Many /HPF (NONE-FEW) Urine Hyaline Casts Many /LPF (NONE-FEW) Urine Mucus Few /HPF (NONE-FEW) Coagulation Test 05/03/18 10:32 Prothrombin Time 28.2 seconds Prothromb Time International Ratio 2.58 Activated Partial Thromboplast Time 42 seconds Urinalysis Test 05/03/18 11:18 Urine Color Yellow Urine Clarity Slightly-cloudy Urine pH 5.0 pH (4.8-9.5) Urine Specific Neeses 1.014 Urine Protein Negative mg/dL (NEGATIVE) Urine Glucose (UA) Negative mg/dL (NEGATIVE) Urine Ketones Negative mg/dL (NEGATIVE) Urine Blood Small (NEGATIVE) Urine Nitrite Negative (NEGATIVE) Urine Bilirubin Negative (NEGATIVE) Urine Urobilinogen 4.0 mg/dL (0.2-1.9) Urine Leukocyte Esterase Small (NEGATIVE) Urine RBC 10 /HPF (0-2/HPF) Urine WBC 34 /HPF (0-5/HPF) Urine Squamous Epithelial Cells Many /LPF (NONE-FEW) Urine Amorphous Crystals Few /HPF Urine Bacteria Many /HPF (NONE-FEW) Urine Hyaline Casts Many /LPF (NONE-FEW) Urine Mucus Few /HPF (NONE-FEW) EKG/Imaging Imaging FACILITY: [facility] [place] PATIENT NAME: Brielle Campbell : 1930 MR: [id number] V: [id number] EXAM DATE: ORDERING PHYSICIAN: ABEBE MCLAIN TECHNOLOGIST: Location: [facility] Patient: Brielle Campbell : 1930 Visit/Account:[id number] Date of Sevice: 05/03/2018 CT BRAIN NO CONTRAST Indication: fall Comparison: None. Technique: Noncontrast head CT vertex to the skull base obtained. One of the following dose optimization techniques was utilized in the performance of this exam: automated exposure control; adjustment of the mA and/or kV according to the patient's size; or use of an iterative reconstruction technique. Specific details can be referenced in the facility's radiology CT exam operational policy. Findings: Brain: The mensah and white matter differentiation and cortex are maintained. Confluent areas of decreased attenuation are seen at the white matter of both cerebral hemispheres. Ventricles and sulci: Ventricles and sulci are symmetrically prominent. There is no abnormal extra-axial fluid collection or mass. Paranasal sinuses:Visualized paranasal sinuses and mastoid air cells are clear. Calvarium:Bones of the skull and skull base are intact. Orbits and soft tissues: Right and left globes and soft tissues of the head are normal. Possible soft tissue swelling is seen adjacent to the right orbit. Impression: 1. No evidence of infarct hemorrhage or mass. 2. Age-related cerebral volume loss and small vessel ischemic change. 3. Possible subcutaneous swelling/contusion right supraorbital region. Report Dictated By: Vasu Mitchell at 05/03/2018 11:39 AM Report E-Signed By: Vasu Mitchell at 05/03/2018 11:42 AM WSN:[id number] FACILITY: [facility] [place] PATIENT NAME: Brielle Campbell : 1930 MR: [id number] V: [id number] EXAM DATE: ORDERING PHYSICIAN: ABEBE MCLAIN TECHNOLOGIST: Location: [facility] Patient: Brielle Campbell : 1930 Visit/Account:[id number] Date of Sevice: 05/03/2018 CT VERTEBRA CERVICAL (NON CON) EXAMINATION: Cervical spine CT Additional Pertinent history: Fall. COMPARISON STUDIES: CT cervical spine 10/06/2016. TECHNIQUE: Axial images were obtained from the skull base through the upper thoracic spine without IV contrast administration. Coronal and sagittal reformatted images were obtained from the axial source data. One of the following dose optimization techniques was utilized in the perf ormance of this exam: automated exposure control; adjustment of the mA and/or kV according to the patient's size; or use of an iterative reconstruction technique. Specific details can be referenced in the facility's radiology CT exam operational policy. FINDINGS: Pre-vertebral soft tissues: negative Alignment: The vertebral bodies and posterior elements demonstrate normal alignment. Vertebral bodies: The dens is intact. The vertebral bodies and posterior elements are intact. Posterior elements: The facets are in normal position. Disc Spaces: There is disc space narrowing with anterior osteophytes at C5-6 and C6-7 and C7-T1. Visualized lung / mediastinum: Large right-sided pleural effusion is seen. IMPRESSION: 1. No evidence of fracture or malalignment. 2. Moderate cervical spondylosis C5-6, C6-7, and C7-T1. 3. Large right-sided pleural effusion. Report Dictated By: Vasu Mitchell at 05/03/2018 11:29 AM Report E-Signed By: Vasu Mitchell at 05/03/2018 11:39 AM WSN:[id number] FACILITY: [facility] [place] PATIENT NAME: Brielle Campbell : 1930 MR: [id number] V: [id number] EXAM DATE: ORDERING PHYSICIAN: ABEBE MCLAIN TECHNOLOGIST: Location: [facility] Patient: Brielle Campbell : 1930 Visit/Account:[id number] Date of Sevice: 05/03/2018 3 views right shoulder Indication: Chest pain Comparison: Examination chest from today Findings: There are large right-sided pleural effusion with concomitant consolidation majority of the right lung. Alignment appears anatomic in the right shoulder without fracture. Mild AC joint arthrosis. Before meals and CC intervals are within normal limits. IMPRESSION: 1. AC joint arthrosis. No acute osseous finding involving the right shoulder. 2. Very large right-sided pleural effusion. Report Dictated By: Marcos Sterling MD at 05/03/2018 11:29 AM Report E-Signed By: Marcos Sterling MD at 05/03/2018 11:29 AM WSN:[id number] FACILITY: [facility] [place] PATIENT NAME: Brielle Campbell : 1930 MR: [id number] V: [id number] EXAM DATE: ORDERING PHYSICIAN: ABEBE MCLAIN TECHNOLOGIST: Location: [facility] Patient: Brielle Campbell : 1930 Visit/Account:[id number] Date of Sevice: 05/03/2018 Single view of the chest Indication: Fall. Comparison: X-rays examination chest March 06, 2018 Findings: A large right-sided pleural effusion with progressive as compared to prior examination. Volume loss with aeration of the superior right perihilar region is noted. No pneumothorax. Left lung is clear. No definite acute osseous finding. IMPRESSION: 1. Progressive, very large right-sided pleural effusion with consolidation of the majority of the right lung. Left lung is clear. Report Dictated By: Marcos Sterling MD at 05/03/2018 11:26 AM Report E-Signed By: Marcos Sterling MD at 05/03/2018 11:28 AM WSN:[id number] ED Course/Re-evaluation ED Course Plan at this time will be cardiac workup x-ray the shoulder CT head and CT C- spine. Patient with elevated troponin, creatinine is elevated at 3.1, she has an INR of 2.5 which patient is only taking aspirin for anticoagulation. Patient will require admission chest x-ray showing a moderate-sized pleural effusion and will likely need to be drained. However given the patient's status of elevated INR this will have to be delayed. I will type and screen the patient. Discussed with daughter and patient is cognizant and able to understand her medical condition. Because of the elevated troponin I explained we would likely in that scenario recommend transfer to [place] or [facility] facility for further cardiac evaluation. Patient does not wish to be transferred and wishes only to be admitted to [facility]. Discussed the risks and benefits of that. They opting for more of a palliative type treatment rather than aggressive invasive treatment. Decision to Disposition Date: May 03, 2018 Decision to Disposition Time: 13:47 Depart Departure Latest Vital Signs Vital Signs Date Time Temp Pulse Resp B/P (MAP) Pulse Ox O2 Delivery O2 Flow Rate FiO2 05/03/18 12:30 75 147/81 (103) 05/03/18 11:30 88 05/03/18 10:25 5.0 05/03/18 10:08 97.3 20 Oxy Mask Impression: Primary Impression: Acute renal failure Additional Impressions: Hyperkalemia Acute exacerbation of CHF (congestive heart failure) Condition: Improved Disposition: Admitted from ER (to Dr Liu) Referrals: FRANCI PORTER MD (PCP) Problem Qualifiers Primary Impression: Acute renal failure Acute renal failure type: unspecified Qualified Codes: N17.9 - Acute kidney failure, unspecified Additional Impressions: Acute exacerbation of CHF (congestive heart failure) Heart failure type: unspecified Qualified Codes: I50.9 - Heart failure, unspecified ABEBE MCLAIN MD May 03, 2018 09:59
[~2018-05-03 10:04] MED LIST changes: -CEPH500C24 PO; -NYST15PO4 TP
--- NOTE | 2018-05-03 10:35 | EKG ---
FACILITY: [facility] [place] PATIENT NAME: BARBER IBRAHIM : [id number] MR: [id number] V: [id number] EXAM DATE: ORDERING PHYSICIAN: ABEBE MCLAIN TECHNOLOGIST: Test Reason : fall Blood Pressure : / mmHG Vent. Rate : 068 BPM Atrial Rate : 068 BPM P-R Int : 200 ms QRS Dur : 152 ms QT Int : 504 ms P-R-T Axes : 015 113 104 degrees QTc Int : 535 ms Normal sinus rhythm Right bundle branch block Abnormal ECG When compared with ECG of 23-MAR-2018 09:05, Sinus rhythm has replaced Atrial fibrillation Nonspecific T wave abnormality, worse in Lateral leads Confirmed by DAVID LIU ([id number]) on 05/03/2018 2:41:49 PM Referred By: Confirmed By:DAVID LIU
[2018-05-03 10:46] LABS: PLATELET COUNT, AUTOMATED 198 K/uL (150-450)
[2018-05-03 10:58] LABS: INR 2.58
[2018-05-03] MEDS ORDERED: ACETAMINOPHEN 325 MG TAB PO ONE (11:15)
--- NOTE | 2018-05-03 11:31 | RADIOLOGY IMAGING REPORT ---
FACILITY: [facility] PATIENT NAME: Brielle Campbell : 1930 MR: [id number] V: [id number] EXAM DATE: ORDERING PHYSICIAN: ABEBE MCLAIN TECHNOLOGIST: Location: [facility] [place] Patient: Brielle Campbell : 1930 Visit/Account:[id number] Date of Sevice: 05/03/2018 Single view of the chest Indication: Fall. Comparison: X-rays examination chest March 06, 2018 Findings: A large right-sided pleural effusion with progressive as compared to prior examination. Volume loss w ith aeration of the superior right perihilar region is noted. No pneumothorax. Left lung is clear. No definite acute osseous finding. IMPRESSION: 1. Progressive, very large right-sided pleural effusion with consolidation of the majority of the rig ht lung. Left lung is clear. Report Dictated By: Marcos Sterling MD at 05/03/2018 11:26 AM Report E-Signed By: Marcos Sterling MD at 05/03/2018 11:28 AM WSN:[id number]
--- NOTE | 2018-05-03 11:33 | RADIOLOGY IMAGING REPORT ---
FACILITY: [facility] [place] PATIENT NAME: Brielle Campbell : 1930 MR: [id number] V: [id number] EXAM DATE: ORDERING PHYSICIAN: ABEBE MCLAIN TECHNOLOGIST: Location: [facility] [place] Patient: Brielle Campbell : 1930 Visit/Account:[id number] Date of Sevice: 05/03/2018 3 views right shoulder Indication: Chest pain Comparison: Examination chest from today Findings: There are large right-sided pleural effusion with concomitant consolidation majority of the right [place] g. Alignment appears anatomic in the right shoulder without fracture. Mild AC joint arthrosis. Before meals and CC intervals are within normal limits. IMPRESSION: 1. AC joint arthrosis. No acute osseous finding involving the right shoulder. 2. Very large right-sided pleural effusion. Report Dictated By: Marcos Sterling MD at 05/03/2018 11:29 AM Report E-Signed By: Marcos Sterling MD at 05/03/2018 11:29 AM WSN:[id number]
--- NOTE | 2018-05-03 11:43 | RADIOLOGY IMAGING REPORT ---
FACILITY: [facility] PATIENT NAME: Brielle Campbell : 1930 MR: [id number] V: [id number] EXAM DATE: ORDERING PHYSICIAN: ABEBE MCLAIN TECHNOLOGIST: Location: [facility] [place] Patient: Brilele Campbell : 1930 Visit/Account:[id number] Date of Sevice: 05/03/2018 CT VERTEBRA CERVICAL (NON CON) EXAMINATION: Cervical spine CT Additional Pertinent history: Fall. COMPARISON STUDIES: CT cervical spine 10/06/2016. TECHNIQUE: Axial images were obtained from the skull base through the upper thoracic spine without I V contrast administration. Coronal and sagittal reformatted images were obtained from the axial [facility] e data. One of the following dose optimization techniques was utilized in the performance of this exam: autom ated exposure control; adjustment of the mA and/or kV according to the patient's size; or use of an i terative reconstruction technique. Specific details can be referenced in the facility's radiology CT exam operational policy. FINDINGS: Pre-vertebral soft tissues: negative Alignment: The vertebral bodies and posterior elements demonstrate normal alignment. Vertebral bodies: The dens is intact. The vertebral bodies and posterior elements are intact. Posterior elements: The facets are in normal position. Disc Spaces: There is disc space narrowing with anterior osteophytes at C5-6 and C6-7 and C7-T1. Visualized lung / mediastinum: Large right-sided pleural effusion is seen. IMPRESSION: 1. No evidence of fracture or malalignment. 2. Moderate cervical spondylosis C5-6, C6-7, and C7-T1. 3. Large right-sided pleural effusion. Report Dictated By: Vasu Mitchell at 05/03/2018 11:29 AM Report E-Signed By: Vasu Mitchell at 05/03/2018 11:39 AM WSN:[id number]
--- NOTE | 2018-05-03 11:46 | RADIOLOGY IMAGING REPORT ---
[facility] PATIENT NAME: Brielle Campbell : 1930 MR: [id number] V: [id number] EXAM DATE: ORDERING PHYSICIAN: ABEBE MCLAIN TECHNOLOGIST: Location: [facility] Patient: Brielle Campbell : 1930 Visit/Account:[id number] Date of Sevice: 05/03/2018 CT BRAIN NO CONTRAST Indication: fall Comparison: None. Technique: Noncontrast head CT vertex to the skull base obtained. One of the following dose optimizat ion techniques was utilized in the performance of this exam: automated exposure control; adjustment o f the mA and/or kV according to the patient's size; or use of an iterative reconstruction technique. Specific details can be referenced in the facility's radiology CT exam operational policy. Findings: Brain: The mensah and white matter differentiation and cortex are maintained. Confluent areas of decrea sed attenuation are seen at the white matter of both cerebral hemispheres. Ventricles and sulci: Ventricles and sulci are symmetrically prominent. There is no abnormal extra-ax ial fluid collection or mass. Paranasal sinuses:Visualized paranasal sinuses and mastoid air cells are clear. Calvarium:Bones of the skull and skull base are intact. Orbits and soft tissues: Right and left globes and soft tissues of the head are normal. Possible soft tissue swelling is seen adjacent to the right orbit. Impression: 1. No evidence of infarct hemorrhage or mass. 2. Age-related cerebral volume loss and small vessel ischemic change. 3. Possible subcutaneous swelling/contusion right supraorbital region. Report Dictated By: Vasu Mitchell at 05/03/2018 11:39 AM Report E-Signed By: Vasu Mitchell at 05/03/2018 11:42 AM WSN:[id number]
[2018-05-03 14:10] VITALS: BP 148/62
[2018-05-03] MEDS ORDERED: FUROSEMIDE 40 MG/4 ML VIAL IVP ONE (15:00)
[2018-05-03] MEDS ORDERED: POTA10CA40 PO (15:08)
[2018-05-03] MEDS ORDERED: NYST15PO4 TP (15:08)
--- NOTE | 2018-05-03 15:54 | History & Physical ---
History of Present Illness History of Present Illness 87yo female HFpEF, severe Aortic stenosis, large right sided pleural effusion and atrial fibrillation who came to the ER after a fall. For the last month, her weight has been steadily increasing. She weighed 162lbs when discharged from the hospital in late March. Her weight increased to over 174lbs in the l ast week. Her PCP, has had her increase her Bumex and Spironolactone. Today, she was standing on the scale and felt dizzy and lost her balance. She fell down. There was no LOC, chest pain or palpitations. Her daughter has noticed that the patient's left arm is twitching today. The patient denies orthopnea, chest pain, LE edema. However, she has had more right facial and chest swelling (which she has chronically). The patient had right pleural effusion drained during her hospitalization a month ago that was complicated by the fact the lung didn't fully reexpand and had a small pneumothorax. History Problems: (1) Heart failure with preserved left ventricular function (HFpEF) Status: Acute (2) Atrial fibrillation Status: Chronic (3) Essential hypertension Status: Chronic (4) Hypothyroid Status: Chronic (5) Anemia Status: Chronic (6) Elevated transaminase level Status: Chronic (7) Valvular heart disease Status: Chronic Home Meds Active Scripts Bumetanide (BUMETANIDE) 0.5 Mg Tablet, 0.5 MG PO DAILY, #30 Prov:DAVID LIU MD 02/08/18 Reported Medications Potassium Chloride (POTASSIUM CHLORIDE) 10 Meq Capsule.er, 10 MEQ PO QID 05/03/18 Nystatin 100,000 Unit/Gm Top Powder (NYSTATIN 100,000 UNIT/GM TOP POWDER) 15 Gm Powder, 15 GM TP BID, TUBE 05/03/18 Spironolactone (SPIRONOLACTONE) 25 Mg Tablet, 25 MG PO QDAY, TAB 03/23/18 Acetaminophen (TYLENOL EXTRA STRENGTH) 500 Mg Tablet, 500 MG PO 2-4XD PRN for pain, TAB 02/06/18 Docusate Sodium (COLACE) 100 Mg Capsule, 50 MG PO QDAY, CAPSULE 02/06/18 Polyethylene Glycol 3350 (MIRALAX) 17 Gm Powd.pack, 17 GM PO QAM, PKT 02/06/18 Gabapentin (GABAPENTIN) 100 Mg Capsule, 100 MG PO TID, CAPSULE 09/03/17 Levothyroxine Sodium (LEVOTHYROXINE SODIUM) 88 Mcg Tablet, 88 MCG PO QDAY 09/03/17 Carvedilol (CARVEDILOL) 3.125 Mg Tab, 3.125 MG PO BID, TAB 08/26/17 Tramadol Hcl (TRAMADOL HCL) 50 Mg Tablet, 2 TAB PO Q4-6H PRN for PAIN, TAB 02/18/16 Aspirin (ASPIRIN) 81 Mg Tablet.dr, 81 MG PO 11/28/11 Allopurinol (Zyloprim) 300 Mg Tab, 300 MG PO QDAY, 0 Refills 04/14/09 Allergies: Coded Allergies: No Known Drug Allergies (Verified , 03/23/18) Patient History: FH: diabetes mellitus MOTHER (diabetes Type II at age 42), , Age:40's - 50 BROTHER OR SISTER ( age 75), , Age:60 years and older Hx Smoking: No Smoking Status: Never Smoker Caffeine Intake: Coffee Caffeine/Cups Per Day: 1x/day Hx Alcohol Use: No Hx Substance Use Disorder: No Review of Systems All Systems Reviewed/Normal: Yes, Except as Noted Exam Vital Signs Vital Signs Date Time Temp Pulse Resp B/P (MAP) Pulse Ox O2 Delivery O2 Flow Rate FiO2 05/03/18 14:10 97.6 71 24 148/62 (90) 98 Oxy Mask 4.0 General Appearance: Alert, Awake, Other (mild work of breathing) ENT: Posterior Pharynx Clear, Other (Right eye has edema around it. No erythema. Right neck with some edema.) Cardiovascular: Regular Rate and Rhythm Respiratory: Clear to Auscultation Extremities: No Edema Integumentary: No Jaundice, No Cyanosis Medical Decision Making Data Points Result Diagram: 05/03/18 1032 05/03/18 1032 Item Value Date Time Urine RBC 10 /HPF 05/03/18 1118 Urine WBC 34 /HPF 05/03/18 1118 Urine Squamous Epithelial Cells Many /LPF H 05/03/18 1118 Urine Amorphous Crystals Few /HPF 05/03/18 1118 Urine Bacteria Many /HPF H 05/03/18 1118 Urine Hyaline Casts Many /LPF H 05/03/18 1118 Urine Leukocyte Esterase Small H 05/03/18 1118 Urine Urobilinogen 4.0 mg/dL H 05/03/18 1118 Neutrophils (%) (Auto) 77.9 % H 05/03/18 1032 Lymphocytes (%) (Auto) 12.1 % L 05/03/18 1032 Monocytes (%) (Auto) 9.3 % 05/03/18 1032 Eosinophils (%) (Auto) 0.3 % L 05/03/18 1032 Basophils (%) (Auto) 0.4 % 05/03/18 1032 Prothromb Time International Ratio 2.58 05/03/18 1032 B-Type Natriuretic Peptide 1650 pg/ml H 05/03/18 1032 Alanine Aminotransferase (ALT/SGPT) 48 U/L 05/03/18 1032 Alkaline Phosphatase 124 U/L 05/03/18 1032 Aspartate Amino Transf (AST/SGOT) 103 U/L H 05/03/18 1032 Calcium Level 8.2 mg/dl L 05/03/18 1032 Total Bilirubin 2.5 mg/dl H 05/03/18 1032 Total Bilirubin 1.4 mg/dl H 03/26/18 0536 Prothromb Time International Ratio 1.57 09/23/17 1200 EKG / Imaging EKG Interpretation Vent. Rate : 068 BPM Atrial Rate : 068 BPM P-R Int : 200 ms QRS Dur : 152 ms QT Int : 504 ms P-R-T Axes : 015 113 104 degrees QTc Int : 535 ms Normal sinus rhythm Right bundle branch block Abnormal ECG When compared with ECG of 23-MAR-2018 09:05, Sinus rhythm has replaced Atrial fibrillation Nonspecific T wave abnormality, worse in Lateral leads Confirmed by DAVID LIU ([id number]) on 05/03/2018 2:41:49 PM Imaging Cervical Spine CT - 1. No evidence of fracture or malalignment. 2. Moderate cervical spondylosis C5-6, C6-7, and C7-T1. 3. Large right-sided pleural effusion. CXR - 1. Progressive, very large right-sided pleural effusion with consolidation of the majority of the right lung. Left lung is clear. Head CT - 1. No evidence of infarct hemorrhage or mass. 2. Age-related cerebral volume loss and small vessel ischemic change. 3. Possible subcutaneous swelling/contusion right supraorbital region. Shoulder Xray - 1. AC joint arthrosis. No acute osseous finding involving the right shoulder. 2. Very large right-sided pleural effusion. Assessment and Plan Problems: (1) Acute renal failure Status: Acute Assessment & Plan: She presented after a fall today. Her creatinine is up to 3.1 and is normally 0.7-1. Because of an elevated BNP, elevated troponin, worsening right pleural effusion, progressive weight gain and worsening facial edema: it seems to be due to exacerbation of CHF. Will attempt diuresis and follow creatinine. If the renal function worsens despite aggressive treatment, then the patient would like to consider comfort care. See below. (2) Elevated troponin Status: Acute Assessment & Plan: Secondary to CHF exacerbation and ARF. The patient and daughter are not wanting transfer to a higher level of care. Will follow. (3) Hyperkalemia Status: Acute Assessment & Plan: Secondary to ARF and exacerbated by spironolactone. Will hold spironolactone and follow. (4) Heart failure with preserved left ventricular function (HFpEF) Status: Acute Assessment & Plan: She presented with an elevated BNP, elevated troponin, worsening right pleural effusion, progressive weight gain and worsening facial edema despite escalating doses of Bumex and Spironolactone as an outpatient. The CHF is complicated by severe that is not amendable to treatment. Will give a dose of Lasix 80mg IV, place on a heart failure diet, and check daily wts. She had the right pleural effusion drained last month that was complicated by the lung not fully reexpanding and developing a small pneumothorax. It has fully reaccumulated. She is not reporting significant SOB, so will not discuss draining. (5) Valvular heart disease Status: Chronic Assessment & Plan: She has severe . See above. (6) Elevated transaminase level Status: Chronic Assessment & Plan: INR is elevate, also. Likely, secondary to passive congestion from CHF. Will follow. (7) Gout Status: Chronic Assessment & Plan: Continue allopurinol, but at renal dose. (8) Chronic pain Status: Chronic Assessment & Plan: Continue chronic gabapentin and tramadol, but at renal dosing. Copies to: FRANCI PORTER MD ; Venous Thromboembolism Antithrombotics Is Pt On Any Antithrombotics?: No Prophylaxis Tx Contraindicated Pharmacological Contraindicati: Liver Disease Exam Sepsis Risk: No Definite Risk Problem Qualifiers (1) Acute renal failure: Acute renal failure type: unspecified Qualified Codes: N17.9 - Acute kidney failure, unspecified DAVID LIU MD May 03, 2018 15:54
--- NOTE | 2018-05-03 16:26 | NUR ---
Done by certified pharmacy technician 05/03/18 @ 1508. Addendum: 05/03/18 at 1627 by JESSE LOERA RN Amended: Links added.
[2018-05-03] MEDS ORDERED: BACITRACIN OINT 0.9 GM PKT TP PRN (17:00)
[2018-05-03 18:48] VITALS: BP 131/45
[2018-05-03] MEDS: CARVEDILOL 3.125 MG TAB PO SCH ×2 (20:52→20:55)
[2018-05-03] MEDS: traMADol 50 MG TAB PO PRN (20:52)
[2018-05-03] MEDS: GABAPENTIN 100 MG CAP PO SCH (20:52)
[2018-05-03 20:53] VITALS: BP 117/54
[2018-05-04 00:26] VITALS: BP 105/44
[2018-05-04 05:30] VITALS: BP 124/35
[2018-05-04] MEDS: LEVOTHYROXINE SOD 0.088 MG TAB PO SCH (06:03)
[2018-05-04 06:39] LABS: PLATELET COUNT, AUTOMATED 173 K/uL (150-450)
[2018-05-04 08:10] VITALS: BP 122/46
[2018-05-04] MEDS: POLYETHYLENE GLYCOL 17 GM PKT PO SCH (09:27)
[2018-05-04] MEDS: CARVEDILOL 3.125 MG TAB PO SCH ×2 (09:28→21:41)
[2018-05-04 10:32] VITALS: Ht 149.9 cm; Wt 80.4 kg
--- NOTE | 2018-05-04 10:58 | Hospitalist Progress Note ---
Subjective Progress Notes Subjective This patient was admitted for a large pleural effusion. She had no acute events overnight. Patient Complains of: Cardiovascular: No: Chest Pain Respiratory: No: Shortness of Breath Physical Exam Vital Signs Date Time Temp Pulse Resp B/P (MAP) Pulse Ox O2 Delivery O2 Flow Rate FiO2 05/04/18 08:10 97.8 75 16 122/46 (71) 96 Nasal Cannula 2.0 Intake and Output 05/04/18 06:59 Intake Total 518 ml Balance 518 ml Intake Oral 518 ml # Voids 2 Cardiovascular: Regular Rate and Rhythm Respiratory: Other (Diminished breath sounds on the right.) Result Diagram: 05/04/1861305/04/18613 Assessment and Plan Problems: (1) Acute renal failure Status: Acute Assessment & Plan: She did have an increased creatinine compared to her baseline. Her levels improved slightly overnight. (2) Elevated troponin Status: Acute Assessment & Plan: Secondary to CHF exacerbation and ARF. The patient and daughter are not wanting transfer to a higher level of care. (3) Hyperkalemia Status: Acute Assessment & Plan: We did stop her spironolactone and her levels have improved. (4) Heart failure with preserved left ventricular function (HFpEF) Status: Acute Assessment & Plan: She presented with an elevated BNP, elevated troponin, worsening right pleural effusion, progressive weight gain and worsening facial edema despite escalating doses of Bumex and Spironolactone as an outpatient. The family is meeting with hospice today and are leaning towards comfort measures only. (5) Valvular heart disease Status: Chronic Assessment & Plan: She has severe . (6) Elevated transaminase level Status: Chronic Assessment & Plan: INR is elevate, also. Likely, secondary to passive congestion from CHF. Will follow. (7) Gout Status: Chronic Assessment & Plan: Continue allopurinol, but at renal dose. (8) Chronic pain Status: Chronic Assessment & Plan: Continue chronic gabapentin and tramadol, but at renal dosing. Exam Sepsis Risk: No Definite Risk Problem Qualifiers (1) Acute renal failure: Acute renal failure type: unspecified Qualified Codes: N17.9 - Acute kidney failure, unspecified FRANCI PETERS DO May 04, 2018 10:58
[2018-05-04 15:30] VITALS: BP 126/41
[2018-05-04 19:59] VITALS: BP 151/55
[2018-05-04 21:40] VITALS: BP 123/32
[2018-05-04] MEDS: GABAPENTIN 100 MG CAP PO SCH (21:40)
[2018-05-05 02:22] VITALS: BP 140/53
[2018-05-05 06:53] VITALS: BP 139/48
[2018-05-05] MEDS: LEVOTHYROXINE SOD 0.088 MG TAB PO SCH (06:57)
[2018-05-05] MEDS ORDERED: INFLUENZA VIRUS VAC 0.5ML SYR IM ONLY ONE (09:00)
[2018-05-05] MEDS: CARVEDILOL 3.125 MG TAB PO SCH ×2 (09:36→20:16)
[2018-05-05] MEDS: POLYETHYLENE GLYCOL 17 GM PKT PO SCH (09:36)
--- NOTE | 2018-05-05 10:15 | Medical Nutrition Therapy ---
Nutrition Anthropometrics Height (Inches): 59.00 Height (Calculated Centimeters: 149.337830 Weight (Pounds): 175 Weight (Calculated Kilograms): 79.407 Cullen Nutrition Score: Adequate Cullen Nutrition Risk Score: 17 Dietary Referral Nutrition Risk Factors: Nutrition Risk Comment: Physical Findings Physical Appearance: Obese BMI 30-39 Skin Appearance Skin Appearance: Edema Edema Location Modifier: Both Edema Location: Lower Extremity Type of Edema: Degree of Edema: 2+ Gastrointestinal Symptoms GI Symtoms: Tube Present: Bowel Sounds: Recent Bowel Pattern: Stool Characteristics: Nutritional Diagnosis Nutritional Risk Acuity 1: Acute/ES Renal Nutritional Risk Acuity 2: CHF w/Complication Past Medical History: CHF, renal failure, ARF, DM II, Gout, hypothyroid, hypokalemia, HTN, a-fib, HFpEF, valvular heart disease. Nutritional Acuity: 1-High Nutrition Diagnosis: Increased Nutrient Needs Nutrition Etiology: Physiological Causes Nutrition Problem/Etiology/Sym: Increased nutrient needs related to physiological causes as evidenced by acute renal failure, CHF w/ complications, elevated troponin 1 (0.447-0.543) and b-natriuretic peptide (0906-1708) levels. Energy Requirement: 1497 (MSJ, 1.1 TEF 1.2 AF) Protein Requirement: 63 (0.8g AA/kg of BW) Fluid Requirement: 1497 (1mL/kcal) Diet Type: CHF Diet Nutrition Intervention: Cont diet as ordered, Encourage intake Nutrition Monitoring & Eval Nutrition Goals: Eat 50-100% Meal, Drink > 1200 cc/day Nutrition Follow-Up: Fair Intake Nutrition Monitoring: Pt consuming 50% of CHF diet. RD Patient Assessment Time: [address] Assessment Type: RD Screen Patient Nutrition Acuity: 1-High Follow Up Date: May 07, 2018 Nutritional Comment: 05/04: Pt dx with ARF, gout, hyperkalemia, HFpEF, valvular heart disease. Pt has a hx of CHF, renal failure, ARF, DM II, Gout, hypothyroid, hypokalemia, HTN, a-fib, HFpEF, valvular heart disease. Pt has elevated BUN (48-59), creatinine (2.7-3.1), troponin 1 (0.447-0.543), and b-natriuretic peptide (0077-8670). Pt is consuming 50% of CHF diet. -JAQUELIN GABRIEL May 04, 2018 11:04
[2018-05-05 13:30] VITALS: BP 157/58
--- NOTE | 2018-05-05 16:03 | Hospitalist Progress Note ---
Subjective Progress Notes Subjective 87F admitted for pleural effusion, CHF, renal failure. SERENA overnight, reports feeling better this am. Patient Complains of: Respiratory: No: Cough, Congestion Gastrointestinal: No Nausea Physical Exam Vital Signs Date Time Temp Pulse Resp B/P (MAP) Pulse Ox O2 Delivery O2 Flow Rate FiO2 05/05/18 13:30 97.7 72 22 157/58 (91) 98 Nasal Cannula 2.0 Intake and Output 05/05/18 07:00 Intake Total 870 ml Output Total 400 ml Balance 470 ml Intake Oral 870 ml Output Urine Total 400 ml # Voids 9 # Bowel Movements 1 General Appearance: Alert, Awake, No Acute Distress, Afebrile Neuro: No Gross deficits Cardiovascular: Normal Rhythm & Peripheral Pulses Respiratory: No Respiratory Distress GI: Soft and Non-Tender Extremities: Soft and Non Tender, Warm, Pulses, Perfused Result Diagram: 05/04/1861305/04/18613 Assessment and Plan Problems: (1) Acute renal failure Status: Acute Assessment & Plan: She did have an increased creatinine compared to her baseline. Her levels improved slightly overnight. (2) Elevated troponin Status: Acute Assessment & Plan: Secondary to CHF exacerbation and ARF. The patient and daughter are not wanting transfer to a higher level of care. (3) Hyperkalemia Status: Acute Assessment & Plan: We did stop her spironolactone and her levels have improved. (4) Heart failure with preserved left ventricular function (HFpEF) Status: Acute Assessment & Plan: She presented with an elevated BNP, elevated troponin, worsening right pleural effusion, progressive weight gain and worsening facial edema despite escalating doses of Bumex and Spironolactone as an outpatient. She is discharging home 05.06.2018 with home hospice. (5) Valvular heart disease Status: Chronic Assessment & Plan: She has severe . (6) Elevated transaminase level Status: Chronic Assessment & Plan: INR is elevate, also. Likely, secondary to passive congestion from CHF. Will follow. (7) Gout Status: Chronic Assessment & Plan: Continue allopurinol, but at renal dose. (8) Chronic pain Status: Chronic Assessment & Plan: Continue chronic gabapentin and tramadol, but at renal dosi ng. Exam Sepsis Risk: No Definite Risk Problem Qualifiers (1) Acute renal failure: Acute renal failure type: unspecified Qualified Codes: N17.9 - Acute kidney failure, unspecified DUBOSE STILL,CIELO DO May 05, 2018 16:03
[2018-05-05 19:11] VITALS: BP 156/53
[2018-05-05] MEDS: GABAPENTIN 100 MG CAP PO SCH (20:16)
[2018-05-05] MEDS: traMADol 50 MG TAB PO PRN (20:16)
[2018-05-06] MEDS: LEVOTHYROXINE SOD 0.088 MG TAB PO SCH (05:53)
[2018-05-06 07:08] VITALS: BP 173/56
[2018-05-06 07:50] VITALS: BP 137/48
[2018-05-06] MEDS: CARVEDILOL 3.125 MG TAB PO SCH (08:33)
[2018-05-06] MEDS: POLYETHYLENE GLYCOL 17 GM PKT PO SCH (08:33)
[2018-05-06] MEDS: traMADol 50 MG TAB PO PRN (08:40)
--- NOTE | 2018-05-06 10:31 | Hospitalist Depart ---
Discharge Summary Reason for Hosp/Final Diag: (1) Heart failure with preserved left ventricular function (HFpEF) Status: Acute Hospital Course & Plan: She presented with an elevated BNP, elevated troponin, worsening right pleural effusion, progressive weight gain and worsening facial edema despite escalating doses of Bumex and Spironolactone as an outpatient. Through further discussions with the patient and her family, they elected to pursue only comfort measures/hospice care at this time. (2) Valvular heart disease Status: Chronic Hospital Course & Plan: She also has severe aortic stenosis. (3) Acute renal failure Status: Acute Hospital Course & Plan: She did have an increased creatinine compared to her baseline. Her levels improved slightly during her stay. She has elected to pursue only comfort measures at this time. She will be discharged with home hospice care. (4) Elevated troponin Status: Acute Hospital Course & Plan: Secondary to CHF exacerbation and ARF. The patient and daughter did not want transfer to a higher level of care. (5) Hyperkalemia Status: Acute Hospital Course & Plan: We did stop her spironolactone/potassium supplement and her levels have improved. (6) Elevated transaminase level Status: Chronic Hospital Course & Plan: INR is elevated as well. Likely secondary to passive congestion from CHF. (7) Gout Status: Chronic Hospital Course & Plan: Continue allopurinol. (8) Chronic pain Status: Chronic Hospital Course & Plan: Continue chronic gabapentin and tramadol. (9) Bacteriuria with pyuria Status: Acute Hospital Course & Plan: Her urine culture did grow E. coli which is fairly sensitive. She will complete a course of oral antibiotics. Departure Weight (Pounds): 177 Weight (Ounces): 4.0 Result Diagram: 05/04/18 0614 05/04/18 0614 Item Value Date Time Sodium Level 138 mmol/L 05/03/18 1032 Potassium Level 5.5 mmol/L H 05/03/18 1032 Chloride Level 100 mmol/L 05/03/18 1032 Carbon Dioxide Level 25 mmol/L 05/03/18 1032 Blood Urea Nitrogen 48 mg/dl H 05/03/18 1032 Creatinine 3.10 mg/dl H 05/03/18 1032 Glomerular Filtration Rate Calc 14.2 05/03/18 1032 Random Glucose 86 mg/dl 05/03/18 1032 Calcium Level 8.2 mg/dl L 05/03/18 1032 Total Bilirubin 2.5 mg/dl H 05/03/18 1032 Aspartate Amino Transf (AST/SGOT) 103 U/L H 05/03/18 1032 Alanine Aminotransferase (ALT/SGPT) 48 U/L 05/03/18 1032 Alkaline Phosphatase 124 U/L 05/03/18 1032 Troponin I 0.543 ng/ml *H 05/03/18 1032 Total Protein 7.5 g/dl 05/03/18 1032 Albumin 3.8 g/dl 05/03/18 1032 B-Type Natriuretic Peptide 1650 pg/ml H 05/03/18 1032 Troponin I 0.447 ng/ml *H 05/04/18 0614 B-Type Natriuretic Peptide 1280 pg/ml H 05/04/18 0614 Alkaline Phosphatase 115 U/L 05/04/18 0614 Alanine Aminotransferase (ALT/SGPT) 51 U/L 05/04/18 0614 Aspartate Amino Transf (AST/SGOT) 98 U/L H 05/04/18 0614 Total Bilirubin 1.5 mg/dl H 05/04/18 0614 Calcium Level 8.1 mg/dl L 05/04/18 0614 Total Protein 7.3 g/dl 05/04/18 0614 Albumin 3.5 g/dl 05/04/18 0614 Urine Mucus Few /HPF 05/03/18 1118 Urine Hyaline Casts Many /LPF H 05/03/18 1118 Urine Bacteria Many /HPF H 05/03/18 1118 Urine Amorphous Crystals Few /HPF 05/03/18 1118 Urine Squamous Epithelial Cells Many /LPF H 05/03/18 1118 Urine WBC 34 /HPF 05/03/18 1118 Urine RBC 10 /HPF 05/03/18 1118 Urine Leukocyte Esterase Small H 05/03/18 1118 Urine Urobilinogen 4.0 mg/dL H 05/03/18 1118 Urine Bilirubin Negative 05/03/18 1118 Urine Nitrite Negative 05/03/18 1118 Urine Blood Small 05/03/18 1118 Urine Ketones Negative mg/dL 05/03/18 1118 Urine Glucose (UA) Negative mg/dL 05/03/18 1118 Urine Protein Negative mg/dL 05/03/18 1118 Urine Specific [place] 1.014 05/03/18 1118 Urine pH 5.0 pH 05/03/18 1118 Urine Clarity Slightly-cloudy 05/03/18 1118 Urine Color Yellow 05/03/18 1118 White Blood Count 7.9 k/uL 05/03/18 1032 Hemoglobin 10.3 g/dL L 05/03/18 1032 Hematocrit 32.9 % L 05/03/18 1032 Platelet Count 198 K/uL 05/03/18 1032 [facility] [place], [place] LAB *LIVE* [address] [place] [address] MELANIE MONTANEZ M.D., DIRECTOR OF LABORATORY SERVICES CIELO DAVIES M.D., PATHOLOGIST RUN DATE: 05/05/18 Specimen Inquiry Report PAGE 1 RUN TIME: 923 PATIENT: BARBER CAMPBELL ACCT: [id number] LOC: MED U: [id number] AGE/SX: 87/F ROOM: [facility] RE05/03/[address]: DAVID LIU MD : 1930 BED: 266 DIS: STATUS: ADM IN TLOC: SPEC #: [id number] RD: 05/03/18 STATUS: COMP REQ #: [id number] RECD: 05/03/18-[address]: ABEBE MCLAIN MD SOURCE: MARNI ENTR: 05/03/18-[address]: FRANCI PORTER [facility]: CULT URINE Procedure Result Verified URINE CULTURE Final 05/05/18 Organism 1 ESCHERICHIA COLI >100,000 COL/ML ESC COLI M.I.C. RX --------- --- AMPICILLIN <=2 S AMPICILLIN/SULBACTAM <=2 S CEFAZOLIN <=4 S CEFTAZIDIME <=1 S CEFTRIAXONE <=1 S CEFEPIME <=1 S CEFOXITIN <=4 S ERTAPENEM <=0.5 S CIPROFLOXACIN <=0.25 S GENTAMICIN <=1 S IMIPENEM <=0.25 S LEVOFLOXACIN <=0.12 S NITROFURANTOIN <=16 S PIPERACILLIN/TAZOBACTAM <=4 S TOBRAMYCIN <=1 S TRIMETHOPRIM/SULFAMETHOXAZOLE <=20 S Imaging PATIENT NAME: Barber Campbell : 1930 MR: [id number] V: [id number] EXAM DATE: ORDERING PHYSICIAN: ABEBE MCLAIN TECHNOLOGIST: Location: [facility] [place] Patient: Barber Campbell : 1930 Visit/Account:[id number] Date of Sevice: 05/03/2018 3 views right shoulder Indication: Chest pain Comparison: Examination chest from today Findings: There are large right-sided pleural effusion with concomitant consolidation majority of the right lung. Alignment appears anatomic in the right shoulder without fracture. Mild AC joint arthrosis. Before meals and CC intervals are within normal limits. IMPRESSION: 1. AC joint arthrosis. No acute osseous finding involving the right shoulder. 2. Very large right-sided pleural effusion. Report Dictated By: Marcos Sterling MD at 05/03/2018 11:29 AM Report E-Signed By: Marcos Sterling MD at 05/03/2018 11:29 AM WSN:[id number] PATIENT NAME: Barber Campbell : 1930 MR: [id number] V: [id number] EXAM DATE: ORDERING PHYSICIAN: ABEBE MCLAIN TECHNOLOGIST: Location: [facility] [place] Patient: Barber Campbell : 1930 Visit/Account:[id number] Date of Sevice: 05/03/2018 CT BRAIN NO CONTRAST Indication: fall Comparison: None. Technique: Noncontrast head CT vertex to the skull base obtained. One of the f ollowing dose optimization techniques was utilized in the performance of this exam: automated exposure control; adjustment of the mA and/or kV according to the patient's size; or use of an iterative reconstruction technique. Specific details can be referenced in the facility's radiology CT exam operational policy. Findings: Brain: The mensah and white matter differentiation and cortex are maintained. Confluent areas of decreased attenuation are seen at the white matter of both cerebral hemispheres. Ventricles and sulci: Ventricles and sulci are symmetrically prominent. There is no abnormal extra-axial fluid collection or mass. Paranasal sinuses:Visualized paranasal sinuses and mastoid air cells are clear. Calvarium:Bones of the skull and skull base are intact. Orbits and soft tissues: Right and left globes and soft tissues of the head are normal. Possible soft tissue swelling is seen adjacent to the right orbit. Impression: 1. No evidence of infarct hemorrhage or mass. 2. Age-related cerebral volume loss and small vessel ischemic change. 3. Possible subcutaneous swelling/contusion right supraorbital region. Report Dictated By: Vasu Mitchell at 05/03/2018 11:39 AM Report E-Signed By: Vasu Mitchell at 05/03/2018 11:42 AM WSN:[id number] PATIENT NAME: Barber Campbell : 1930 MR: [id number] V: [id number] EXAM DATE: ORDERING PHYSICIAN: ABEBE MCLAIN TECHNOLOGIST: Location: [facility] [place] Patient: Barber Campbell : 1930 Visit/Account:[id number] Date of Sevice: 05/03/2018 Single view of the chest Indication: Fall. Comparison: X-rays examination chest March 06, 2018 Findings: A large right-sided pleural effusion with progressive as compared to prior examination. Volume loss with aeration of the superior right perihilar region is noted. No pneumothorax. Left lung is clear. No definite acute osseous finding. IMPRESSION: 1. Progressive, very large right-sided pleural effusion with consolidation of the majority of the right lung. Left lung is clear. Report Dictated By: Marcos Sterling MD at 05/03/2018 11:26 AM Report E-Signed By: Marcos Sterling MD at 05/03/2018 11:28 AM WSN:[id number] PATIENT NAME: Barber Campbell : 1930 MR: [id number] V: [id number] EXAM DATE: ORDERING PHYSICIAN: ABEBE MCLAIN TECHNOLOGIST: Location: [facility] [place] Patient: Barber Campbell : 1930 Visit/Account:[id number] Date of Sevice: 05/03/2018 CT VERTEBRA CERVICAL (NON CON) EXAMINATION: Cervical spine CT Additional Pertinent history: Fall. COMPARISON STUDIES: CT cervical spine 10/06/2016. TECHNIQUE: Axial images were obtained from the skull base through the upper thoracic spine without IV contrast administration. Coronal and sagittal reformatted images were obtained from the axial source data. One of the following dose optimization techniques was utilized in the performance of this exam: automated exposure control; adjustment of the mA and/or kV according to the patient's size; or use of an iterative reconstruction technique. Specific details can be referenced in the facility's radiology CT exam operational policy. FINDINGS: Pre-vertebral soft tissues: negative Alignment: The vertebral bodies and posterior elements demonstrate normal alignment. Vertebral bodies: The dens is intact. The vertebral bodies and posterior elements are intact. Posterior elements: The facets are in normal position. Disc Spaces: There is disc space narrowing with anterior osteophytes at C5-6 and C6-7 and C7-T1. Visualized lung / mediastinum: Large right-sided pleural effusion is seen. IMPRESSION: 1. No evidence of fracture or malalignment. 2. Moderate cervical spondylosis C5-6, C6-7, and C7-T1. 3. Large right-sided pleural effusion. Report Dictated By: Vasu Mitchell at 05/03/2018 11:29 AM Report E-Signed By: Vasu Mitchell at 05/03/2018 11:39 AM WSN:[id number] Condition: Improved Time Spent: > 30 min Discharge Instructions Home Meds Active Scripts Cephalexin Monohydrate (CEPHALEXIN) 500 Mg Cap, 500 MG PO BID for 7 Days, #14 CAP 0 Refills Prov:MARLEE JOHNSON MD 05/06/18 Reported Medications Acetaminophen (TYLENOL EXTRA STRENGTH) 500 Mg Tablet, 500 MG PO 2-4XD PRN for pain, TAB 02/06/18 Docusate Sodium (COLACE) 100 Mg Capsule, 50 MG PO QDAY, CAPSULE 02/06/18 Polyethylene Glycol 3350 (MIRALAX) 17 Gm Powd.pack, 17 GM PO QAM, PKT 02/06/18 Gabapentin (GABAPENTIN) 100 Mg Capsule, 100 MG PO TID, CAPSULE 09/03/17 Levothyroxine Sodium (LEVOTHYROXINE SODIUM) 88 Mcg Tablet, 88 MCG PO QDAY 09/03/17 Carvedilol (CARVEDILOL) 3.125 Mg Tab, 3.125 MG PO BID, TAB 08/26/17 Tramadol Hcl (TRAMADOL HCL) 50 Mg Tablet, 2 TAB PO Q4-6H PRN for PAIN, TAB 02/18/16 Allopurinol (Zyloprim) 300 Mg Tab, 300 MG PO QDAY, 0 Refills 04/14/09 Discontinued Reported Medications Potassium Chloride (POTASSIUM CHLORIDE) 10 Meq Capsule.er, 10 MEQ PO QID 05/03/18 Nystatin 100,000 Unit/Gm Top Powder (NYSTATIN 100,000 UNIT/GM TOP POWDER) 15 Gm Powder, 15 GM TP BID, TUBE 05/03/18 Spironolactone (SPIRONOLACTONE) 25 Mg Tablet, 25 MG PO QDAY, TAB 03/23/18 Aspirin (ASPIRIN) 81 Mg Tablet.dr, 81 MG PO 11/28/11 Discontinued Scripts Bumetanide (BUMETANIDE) 0.5 Mg Tablet, 0.5 MG PO DAILY, #30 Prov:DAVID LIU MD 02/08/18 Diet: Regular Activity: As Tolerated Special Instructions: Continue home oxygen at 2L via nasal cannula. [facility] with care at home. Copies to: FRANCI PORTER MD ; Venous Thromboembolism Antithrombotics Is Pt On Any Antithrombotics?: No Problem Qualifiers (1) Acute renal failure: Acute renal failure type: unspecified Qualified Codes: N17.9 - Acute kidney failure, unspecified MARLEE JOHNSON MD May 06, 2018 10:31
[2018-05-06] MEDS ORDERED: CEPH500C24 PO (10:32)
== END 2018-05-06 12:35 | disposition hospice, home (50) | DRG 292 ==
LOC: ER 10:10 → MED 13:08
PROVIDERS: ADMIT Internal Medicine; ATTEND Internal Medicine
DX: I11.0 Hypertensive heart disease with heart failure (principal); N17.9 Acute kidney failure, unspecified; I38 Endocarditis, valve unspecified; I50.23 Acute on chronic systolic (congestive) heart failure; E87.5 Hyperkalemia; Z51.5 Encounter for palliative care; M1A.9XX0 Chronic gout, unspecified, without tophus (tophi); G89.29 Other chronic pain; I48.2 Chronic atrial fibrillation; E03.9 Hypothyroidism, unspecified; Z96.652 Presence of left artificial knee joint; Z90.49 Acquired absence of other specified parts of digestive tract
CPT/HCPCS: 36415; 70450; 71045; 72125; 81001; 82040; 82247; 82310; 82374; 82435; 82565; 82947; 83880; 84075; 84132; 84155; 84295; 84450; 84460; 84484; 84520; 85025; 85610; 85730; 86850; 86900; 86901; 87077; 87088; 87186; 93005; J1940

== ENCOUNTER → 2018-05-03 | Outpatient (CLI) | payer MEDICARE ==
[~2018-05-03] MED LIST changes: +CEPH500C24 PO; +NYST15PO4 TP
[2018-05-04 10:32] VITALS: BMI 35.3
== END ==
LOC: AMB 09:19
PROVIDERS: ATTEND Nurse Practitioner
DX: M25.512 Pain in left shoulder (principal); R09.02 Hypoxemia; W01.0XXA Fall on same level from slipping, tripping and stumbling without subsequent striking against object, initial encounter
CPT/HCPCS: A0425; A0429

== ENCOUNTER → 2018-05-06 | Outpatient (CLI) | payer MEDICARE ==
[2018-05-04 10:32] VITALS: BMI 35.3
[~2018-05-06] MED LIST changes: +CEPH500C24 PO; +NYST15PO4 TP
== END ==
LOC: AMB 12:16
PROVIDERS: ATTEND Nurse Practitioner
DX: I50.9 Heart failure, unspecified (principal); R09.02 Hypoxemia
CPT/HCPCS: A0425; A0428

== ENCOUNTER → 2018-05-13 | Outpatient (CLI) | payer MEDICARE ==
[2018-05-04 10:32] VITALS: BMI 35.3
== END ==
LOC: AMB 11:59
PROVIDERS: ATTEND Nurse Practitioner
DX: I50.84 End stage heart failure (principal)
CPT/HCPCS: A0425; A0428